=== PATIENT | female | born 1990 | race Caucasian/White ===

== ENCOUNTER 2018-04-11 06:53 | Emergency (ER) | payer MEDICAID, SELFPAY ==
[2018-04-11 06:55] VITALS: BP 128/73; PULSE 107; RESP 19; TEMP 36.4; O2SAT 99; BMI 27.4
--- NOTE | 2018-04-11 07:17 | ED.VISSUMM ---
- ER Visit Summary Date of Service: 04/11/18 Chief Complaint: Bites History of Present Illness: The patient is a 28 F who is 14 weeks . Yesterday, she noted insect bites to her arms and legs. They are itchy, red, swollen, and painful. No fever or systemic symptoms. She tried topical hydrocortisone and Benadryl with minimal relief. She was worried that she might need to try something else for this, and so she came to the ER. Physical Examination: Afebrile. Heart rate 107. Otherwise vitals unremarkable. Patient is alert and oriented. Sitting comfortably. No acute distress. Appears well. HEENT exam including eyes or mucous membranes are unremarkable. Neck normal. Heart regular. Breathing comfortably. Skin shows multiple erythematous patches with a central bite and mild edema. No unusual morphologies, target signs, or other concerning lesions. Nothing to suggest cellulitis or overlying infection. Test Results: None indicated Emergency Department Course and Treatment: Patient has multiple bites over her extremities. Nothing to suggest cellulitis or bacterial infection. No fever or systemic symptoms. At this point, I am recommending symptomatic treatment with Benadryl. We can also add Pepcid for histamine blockage. I will not recommend steroids at this time as she is . These will resolve over time. If they worsen or she has new or concerning symptoms, she should return. Treatment Plan: As above Disposition: Discharged Impression: 1. Insect bites to bilateral arms and bilateral legs This note was generated with [employer] dictation software. It may contain incorrect words, spelling, and punctuation that were not noted in review of the chart prior to signing ED Disposition - Plan for ED Patient: Chief Complaint: Bite Referrals: Care Physician,No Primary [Primary Care Provider] -
--- NOTE | 2018-04-11 07:22 | ED.DEP ---
ED Disposition - Plan for ED Patient: Chief Complaint: Bite Instructions: ED Bite Sting Insect Gen Allergic React Prescriptions: DiphenhydrAMINE [Benadryl] 25 mg PO TID PRN PRN 5 Days #15 cap PRN Reason: Itching Famotidine [Pepcid] 20 mg PO BID 5 Days #10 tab Additional Instructions: follow up with your doctor/ob
[2018-04-11 07:28] VITALS: RESP 14
== END 2018-04-11 07:50 | disposition home or self-care (01) ==
LOC: ED 07:28
PROVIDERS: Emergency Provider Emergency Medicine
DX: O26.892 Other specified pregnancy related conditions, second trimester (principal); S40.862A Insect bite (nonvenomous) of left upper arm, initial encounter; S40.861A Insect bite (nonvenomous) of right upper arm, initial encounter; S80.862A Insect bite (nonvenomous), left lower leg, initial encounter; S80.861A Insect bite (nonvenomous), right lower leg, initial encounter; W57.XXXA Bitten or stung by nonvenomous insect and other nonvenomous arthropods, initial encounter; Y93.9 Activity, unspecified; Y92.9 Unspecified place or not applicable; Y99.9 Unspecified external cause status; Z87.891 Personal history of nicotine dependence; Z3A.14 14 weeks gestation of pregnancy
CPT/HCPCS: 99282

== ENCOUNTER 2018-09-24 09:10 | Inpatient (IN) | payer MEDICAID, SELFPAY ==
[2018-09-24] VITALS (16 sets, daily range): BP systolic 101–146; BP diastolic 53–95; PULSE 67–104; RESP 16; TEMP 36.1–36.7; O2SAT 98–100; BMI 25.7
[2018-09-24] MEDS: 0.9% Saline Lock 10 ML Syringe IV (08:13)
[2018-09-24 08:35] LABS: Hematocrit 33.6 % (37-47); Mean Corp Hgb Conc 32.7 g/gl (32-36); Mean Corpuscular Hgb 26.6 pg (27.0-32.0); Mean Corpuscular Volume 81.2 fL (81-99); Mean Platelet Vol. 9.1 fl (6.2-12.0); Platelet Count 293 K/mm3 (150-450); RBC Distribution Width CV 13.9 % (11.6-14.6); RBC Distribution Width SD 41.4 fl (35.1-43.9); Red Blood Count 4.14 M/mm3 (4.2-5.4); White Blood Count 12.8 K/mm3 (4.4-11.0)
[2018-09-24 08:37] LABS: Scan Indicated on CBC? Y/N NO
[2018-09-24 08:44] LABS: International Normalized Ratio 0.9; Prothrombin Time (Protime)PT. 12.3 SECONDS (11.7-14.9)
[2018-09-24 08:45] LABS: Partial Thromboplast Time 23.8 Seconds (24.1-36.2)
[2018-09-24 08:46] LABS: AST(SGOT) 22 U/L (15-37); Alanine Aminotransfer ALT/SGPT 23 U/L (13-56); Creatinine, Serum 0.57 mg/dL (0.55-1.02); EST Glomerular Filtration Rate 133 mL/min (>60); Est Glom Filt Rate - Afr Amer 161 mL/min (>60); Uric Acid 5.5 mg/dL (2.6-6.0)
[2018-09-24 08:59] LABS: Protein, Urine (Random) 431.1 mg/dL (<11.9); Protein:Creat Ratio 1551 mg/g CRE (0-200)
[2018-09-24] MEDS: Lactated Ringers 1,000 ML 999 ML IV ×2 (09:10→11:23)
--- NOTE | 2018-09-24 09:57 | PCM.HP.OB ---
History Date of Admission: 09/24/18 Final KVNG: 10/06/18 Final KVNG Source: US <20 weeks Gestational age: 38 Weeks and 2 Days History of this : This is a 28 year-old, G 3P2 @ 38.3 wks presents to L&D with headache- Pt was found to have elevated BP and proteinuria. pt was scheduled for repeat c/s and BTO at 39 wks. Pt denies visual changes. pt reports does have head cold- no fever. +vomiting. Medical History: Medical History (Last Updated 09/24/18 @ 10:00 by Padmini Lynch MD) Depression F32.9 Preeclampsia O14.90 Allergies No Known Allergies Allergy (Verified 09/22/18 10:56) Home Medications: Home Medications Sertraline HCl [Zoloft] 50 mg PO DAILY 03/21/17 Pnv95/Ferrous Fumarate/FA [ Formula] 1 each PO DAILY 04/11/18 Smoking Status: Current every day smoker Alcohol: None Substance Use Type: Marijuana Number of Fetus(es): 1 Heart Tracin mod edilson, +accels, no decels TOCO Analysis: irregular History Past Pregnancies: Past Pregnancies Delivery Date Name GA/Weeks Outcome Route Weight Infant Gender Labor Length Anesthesia Delivery Location Provider FOB Labs: AB+, GBS neg, RUB imm, HEP NEg, HIV NR, syphilis neg Review of Systems Eyes: Denies: Blurred vision HEENT: Reports: Head Aches Cardiovascular: Denies: Chest Pain Gastrointestinal: Reports: Vomiting Physical Exam General: Alert, Oriented x3 Abdomen: Soft, Gravid Neurological: Cranial nerves II-XII grossly intact Assessment/Plan This is a 28 year-old, G 3P2 @ 38.3 wks, PREECLAMPSIA - elective repeat c/s 1) labs reviewed- Proteinuria, will give tylenol for DARNELL- if resolved would not recommend Magnesium therapy as DARNELL likely from current Congestion and URI 2) C/S planned with BTO 3) Pt was counseled on risks of surgery and consent was obtained 4) Montior VS
[2018-09-24] MEDS: Ondansetron 4 MG/2 ML Vial IV ×2 (10:03→14:06)
[2018-09-24] MEDS: Acetaminophen 500 MG Tablet 1000 MG PO (10:04)
[2018-09-24] MEDS: Sodium Citrate/Citric Acid 30 ML UDC PO (13:35)
[2018-09-24] MEDS: Cefazolin 2 GM in 0.9% Normal Saline 100 ML IV (14:06)
[2018-09-24] MEDS: Ondansetron ODT 4 MG Tablet PO (14:06)
--- NOTE | 2018-09-24 14:43 | FALS_PTH ---
PATIENT: JONATHAN LIVE LOC: [facility] U#:[id number] AGE/SX: 28/F ROOM: WP012 RE09/24/[address]: Dr. Miguel Amador MD : 1990 BED: 1 DIS: 09/27/2018 SPEC #: [id number] RECD: 09/25/18 00:08 STATUS: ARASH BRITTA #: [id number] SREEDHAR: 09/24/18 14:[address]: Miguel Amador DEPT: SURGICAL PATHOLOGY RECD BY: Deondre Ruiz ENTERED: 09/25/18 07:59 SP TYPE: FALL TUBES OTHR DR: No Primary Care Phys Tissues: Fallopian tube Procedures: Surgery Specimen Level II HEADER OPERATION: Tubal ligation PRE-OP DIAGNOSIS: Requests sterilization TISSUE SUBMITTED: Left and right fallopian tubes MICROSCOPIC DIAGNOSIS Left and right fallopian tubes, tubal ligation: Completely transected segments of bilateral fallopian tubes, no pathologic diagnosis. SJ:jesica 09/28/18 MICROSCOPIC DESCRIPTION Slides are reviewed. GROSS DESCRIPTION Received is one container labeled with the patient's name and designated bilateral fallopian tubes, suture in right. The specimen consists of two tubular pieces of vigil soft tissue with the right identified by a suture and measures 1 cm in length and 0.7 cm in diameter. The left fallopian tube measures 1.5 cm in length and 0.7 cm in diameter. The right tube is inked black. The entire specimen is submitted in one cassette. Both pieces will be sectioned at the time of embedding. / DARIEN:jesica 09/25/18 TC:4 CPT: 02156 x2
[2018-09-24] MEDS: Oxytocin 30 units/NS 500 ml 30 UNITS/500 ML IV.SOLN 167 UNITS IV ×2 (14:45→17:08)
[2018-09-24] MEDS: Lactated Ringers 1,000 ML 100 ML IV ×2 (15:00→18:48)
--- NOTE | 2018-09-24 15:35 | OP.PCM_ITS ---
Delivery Classification: NATALIA Final KVNG: 10/06/18 Gestational age: 38 Weeks and 2 Days Indications: Patient presented to L&D and was diagnosed with preeclampsia. Indications for : Repeat Elective , Desires elective sterilization Description of Procedure: Patient taken to OR where she was prepped and draped in normal sterile fashion in a dorsal lithotomy position with a leftward tilt. After ensuring adequacy of anesthesia the Pfannensteil skin incision was made & old scar tissue excised. The incision was carried through to the underlying fascia w/ a bovie. The fascia was incised in the midline and carried laterally with the Shearer scissors. The rectus muscles were scarred together other than a small opening. Bovie cautery was used to further separate the muscles. The peritoneum was entered bluntly & carefully. The bladder flap was adhered to the MAC and it was dissected down with the Metzenbaum scissors and careful blunt dissection. The uterine incision was made with the scalpel and extended laterally w/ gentle traction. The fetus was vertex and the head was brought to the incision in the flexed position. With good fundal pressure the head delivered easily. The shoulders & body delivered easily with additional fundal pressure. The cord was clamped and cut after 1 minute delay and the infant handed off to waiting RN. The placenta was delivered w/ gentle traction and fundal massage and the uterus was exteriorized and cleared of all clots and debris. The uterine incision was closed with 1 vicryl suture in a running locked fashion. A second layer monocryl was used to imbricate the first layer and obtain hemostasis. The left fallopian tube was grasped & doubly suture ligated. Tube segment excised & hemostasis confirmed at tubal site. Process repeated on the right side & again hemostasis confirmed. The uterus was returned to the peritoneal cavity which was cleared of all clots and debris. Tubal sutures were confirmed intact & tubal sites hemostatic. Pelvis was irrigated. A figure of 8 suture was needed on the left side of the incision to obtain hemostasis. The uterine incision was reexamined and found to be hemostatic. Some amauri was placed over the uterine incision & bladder flap due to the denuded areas. The fascia was closed with looped PDS suture in a running standard fashion. The subcutaneous tissue was examined, any bleeding bovie cauterized. The subcutaneous tissue was reapproximated with 3-0 vicryl suture. The skin was closed in a subcuticular fashion by the ESCALATOR SERVICE MECHANIC with me present in the labor and delivery suite. I performed the remainder of the procedure with assistance.
[2018-09-24] MEDS: Methylergonovine 0.2 MG/ML Ampul IM (16:55)
[2018-09-24] MEDS: miSOPROStol 200 MCG Tablet 1000 MCG RECTAL (17:08)
--- NOTE | 2018-09-24 18:07 | PCM.PN.OB ---
Subjective: Patient reports some mild pain. Called by RN for some increased VB. - Physical Exam General: Alert, Oriented x3 Abdomen: Soft, Non Tender, Non-Distended Extremities: No Calf Tenderness Vital Signs Temp Pulse Resp BP Pulse Ox 97.8 F 82 16 120/53 L 100 09/24/18 18:00 09/24/18 18:00 09/24/18 18:00 09/24/18 18:00 09/24/18 18:00 Oxygen Delivery Method Room Air Weight: 149 lb 11.102 oz Body Mass Index (BMI) 25.7 Intake and Output for Last 24 Hours 09/22/18 09/23/18 09/24/18 23:59 23:59 23:59 Intake Total 3533 / 3533 Balance 3533 / 3533 Laboratory Tests Past 24 Hrs 09/24/18 09/24/18 09/24/18 08:13 08:13 08:13 WBC 12.8 H RBC 4.14 L Hgb 11.0 L Hct 33.6 L MCV 81.2 MCH 26.6 L MCHC 32.7 RDW 13.9 RDW Differential 41.4 Plt Count 293 MPV 9.1 PT 12.3 INR 0.9 APTT 23.8 L Creatinine Est GFR (MDRD) Af Amer Est GFR (MDRD) Non-Af Uric Acid AST ALT U Random Total Protein 431.1 H Urine Creatinine 278.00 Protein/Creatinin Ratio 1551 H Blood Type Antibody Screen 09/24/18 09/24/18 08:13 08:13 WBC RBC Hgb Hct MCV MCH MCHC RDW RDW Differential Plt Count MPV PT INR APTT Creatinine 0.57 Est GFR (MDRD) Af Amer 161 Est GFR (MDRD) Non-Af 133 Uric Acid 5.5 AST 22 ALT 23 U Random Total Protein Urine Creatinine Protein/Creatinin Ratio Blood Type AB POSITIVE Antibody Screen NEGATIVE Medical Necessity - Tobacco Use Smoking Status: Current every day smoker Assessment/Plan 28yo female POD#0 s/p Heme - HDS. Clots removed manually from MAC. After that ff mid & below umbilicus. Hemabate given. VB minimal. Plan for continued observation.
[2018-09-24] MEDS: Carboprost Tromethamine 250 MCG/ML Ampul IM (18:27)
[2018-09-24] MEDS: Ketorolac 30 MG/ML Syringe IV (21:39)
[2018-09-25] VITALS (20 sets, daily range): BP systolic 110–134; BP diastolic 39–87; PULSE 78–104; RESP 16–17; TEMP 36.1–36.4; O2SAT 98–100
[2018-09-25 00:39] LABS: Pathology Specimen OB SEE PATHOLOGY REPORT
[2018-09-25] MEDS: Lactated Ringers 1,000 ML 100 ML IV (04:40)
[2018-09-25 07:12] LABS: Hematocrit 19.8 % (37-47); Hemoglobin 6.5 g/dl (12.0-15.0); Mean Corp Hgb Conc 32.8 g/gl (32-36); Mean Corpuscular Hgb 27.2 pg (27.0-32.0); Mean Corpuscular Volume 82.8 fL (81-99); Mean Platelet Vol. 9.3 fl (6.2-12.0); Platelet Count 264 K/mm3 (150-450); RBC Distribution Width CV 13.8 % (11.6-14.6); RBC Distribution Width SD 39.6 fl (35.1-43.9); Red Blood Count 2.39 M/mm3 (4.2-5.4); White Blood Count 16.1 K/mm3 (4.4-11.0)
[2018-09-25 07:16] LABS: Scan Indicated on CBC? Y/N NO
[2018-09-25] MEDS: Ketorolac 30 MG/ML Syringe IV ×3 (07:54→21:29)
--- NOTE | 2018-09-25 07:58 | PCM.PN.OB ---
Subjective: Patient reports some mild abdominal pain. Otherwise she feels well. - Physical Exam General: Alert, Oriented x3 Abdomen: Soft, Non Tender, Non-Distended - ff mid & below umb; inc - bandage c/d/i Vital Signs Temp Pulse Resp BP Pulse Ox 97.1 F L 86 16 117/66 99 09/25/18 04:35 09/25/18 06:50 09/25/18 06:50 09/25/18 04:35 09/25/18 06:50 Oxygen Delivery Method Room Air Weight: 149 lb 11.102 oz Body Mass Index (BMI) 25.7 Intake and Output for Last 24 Hours 09/23/18 09/24/18 09/25/18 23:59 23:59 23:59 Intake Total 6533 / 6533 1867 / 1867 Output Total 125 / 125 520 / 520 Balance 6408 / 6408 1347 / 1347 Laboratory Tests Past 24 Hrs 09/24/18 09/24/18 09/24/18 08:13 08:13 08:13 WBC 12.8 H RBC 4.14 L Hgb 11.0 L Hct 33.6 L MCV 81.2 MCH 26.6 L MCHC 32.7 RDW 13.9 RDW Differential 41.4 Plt Count 293 MPV 9.1 PT 12.3 INR 0.9 APTT 23.8 L Creatinine Est GFR (MDRD) Af Amer Est GFR (MDRD) Non-Af Uric Acid AST ALT U Random Total Protein 431.1 H Urine Creatinine 278.00 Protein/Creatinin Ratio 1551 H Blood Type Antibody Screen 09/24/18 09/24/18 09/25/18 08:13 08:13 06:55 WBC 16.1 H RBC 2.39 L Hgb 6.5 L Hct 19.8 L MCV 82.8 MCH 27.2 MCHC 32.8 RDW 13.8 RDW Differential 39.6 Plt Count 264 MPV 9.3 PT INR APTT Creatinine 0.57 Est GFR (MDRD) Af Amer 161 Est GFR (MDRD) Non-Af 133 Uric Acid 5.5 AST 22 ALT 23 U Random Total Protein Urine Creatinine Protein/Creatinin Ratio Blood Type AB POSITIVE Antibody Screen NEGATIVE Medical Necessity - Tobacco Use Smoking Status: Current every day smoker Assessment/Plan POD#1 Heme - hb 6.5 & will repeat to ensure stable/accurate. Discussed R/B/A of possible blood transfusion with patient if hb remains at 6.5 or symptomatic. Patient agrees with plan. All questions answered GI - ADAT - some decreased UOP overnight but patient with diarrhea (s/p hemabate). Improved this am & will monitor.
[2018-09-25 10:13] LABS: Absolute Neutrophil Count 11.3 X10^3/uL (2.0-7.7); Basophil# 0.01 X10^3/uL; Basophil% 0.1 % (0-1); Eosinophil# 0.04 X10^3/uL; Eosinophils% 0.3 % (0-5); Hematocrit 18.4 % (37-47); Lymphocyte % 11.7 % (19-41); Mean Corp Hgb Conc 32.1 g/gl (32-36); Mean Corpuscular Volume 81.1 fL (81-99); Mean Platelet Vol. 8.7 fl (6.2-12.0); Monocyte# 0.73 X10^3/uL; Monocyte% 5.3 % (0-10); Neutrophil # 11.32 X10^3/uL (2.7-7.7); Neutrophil % 82.5 % (47-70); Platelet Count 232 K/mm3 (150-450); RBC Distribution Width CV 14.2 % (11.6-14.6); RBC Distribution Width SD 41.5 fl (35.1-43.9); Red Blood Count 2.27 M/mm3 (4.2-5.4); White Blood Count 13.7 K/mm3 (4.4-11.0)
[2018-09-25 10:17] LABS: Differential Indicated SCAN CRITERIA MET; Hemoglobin 5.9 g/dl (12.0-15.0); POSITIVE COUNT YES; POSITIVE DIFFERENTIAL NO; POSITIVE MORPHOLOGY NO
[2018-09-25] MEDS: Acetaminophen 500 MG Tablet 1000 MG PO (10:41)
[2018-09-25] MEDS: Ferrous Sulfate 325 MG Tablet PO (10:41)
--- NOTE | 2018-09-25 15:48 | NURSING ---
70gm clot, not followed by active bleeding, fundus firm
[2018-09-25 15:57] LABS: Pathologist Review Reviewed
--- NOTE | 2018-09-25 16:00 | CASEMGMT ---
Social Work Assessment Labor and Delivery Unit Date of Referral: 09-25-2018 Time of Referral: 0830 Referred By: Verbal notification by nursing Date of Intervention: 09-25-2018 Time of Intervention: 1600 Reason for Referral: maternal history of depression History obtained from: Medical record and mother of baby (MOB) Ghislaine Bates Household composition: MOB, reported father of baby (FOB) Jamison Ambrosio, and 2 older children. baby boy to return to this home as well. MOB denies any safety concerns in the home. Patient's parent/guardian status: MOB and FOB are both 28 together for 9 years. MOB and FOB now have 3 children together. Children include: [place] baby boy Kb Ambrosio (born 09[birth year]2018), Hay Ambrosio (born 01-02-11), and Nette Ambrosio (born 04-01-17). Medical History: MOB is G3, P2 to 3 after delivering baby Kb. MOB with care starting at 11 weeks and adequate thereafter. MOB with preeclampsia. Baby was born at repeat caesarian section at 38.3 weeks gestation. Baby weighed 6 pounds 14 ounces, 9 and 9. Educational Status: MOB graduated high school, reports to be able to read, write, and to understand what is read. 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 FOB works in [employer] from 3pm to 2am. Supplies: MBO reports to have all needed supplies for baby including a safe sleep space and car seat. Childcare/Caregiver(s): MOB and FOB are primary caregivers. Transportation: No reported issues. Programs/Agencies Involved: MOB has medical through [facility]. Reports to have WIC. Denies any other agency involvement, legal history, or history with children services. Behavioral Health Issues: Mental Health History: MBO with history of depression after first two children. MOB reports has been on Zoloft since Nette was born and remained on this throughout this . MOB states plan to remain on medication in this period as well. MOB denies any history of suicidal ideation, plan, intent or attempts. No history of thoughts of harm to others. Substance Use History: MOB reports to use alcohol socially, denies use in . MOB reports has used marijuana in the past, and initially indicates use prior to knowledge. MOB did have nausea at the beginning and then informed that used marijuana for nausea issues, to be able to eat, at the beginning of the . MOB denies continued use of this substance. MOB denies any history of other illicit drug use history. Drug Screens: Maternal drug screen positive for marijuana on 03-20-2018/ No other testing done or noted in the C record or at time of delivery. No testing on baby. Family/Social Stressors: maternal history of depression, closely spaced pregnancies between this child and last child in 2017. MOB with early use of marijuana but reports has stopped this and used this for nausea control and appetite stimulation. Support Systems: MOB reports FOB, both sets of parents, and MOB?s brother are supportive. MOB reports to feel to have adequate support. ASSESSMENT: MOB pleasant and cooperative, affect constricted but smiled at appropriate times. MOB reports to feel a connection to baby, reports to understand need for self-care related to depression. Educated to depression, risk factors, and importance of self-care. MOB reports plan to stay on antidepressant in the period. MOB is aware of safe sleeping and shaken baby prevention. MOB reports to have needed supplies for children. MOB reports FOB does help with kids when at home and not working. MOB reports can call MOB?s parents to help if needs a break or help with the kids. Safe Plan of Care for infant related to substance use: Addressed substance use with MOB. No intent identified by MOB to supply chain tech use of marijuana again. MOB reports last use was in the first trimester, early on. Addressed safe plan of care for children, should for some reason MOB?s intent change regarding marijuana use. MOB reports would assure that kids are care by another adult, would not use around the kids, nor care for kids after using. MOB aware of recommendation not to breast feed if using marijuana, but again no intent reported by MOB about using in the future. MOB with one first trimester drug screen, no subsequent testing on MOB and no testing on baby. No reported concerns bout mother/child bonding. PLAN: MOB and baby to home at time of discharge. Provided MOB with depression packet and educated to online support group should MOB wants some extra support. Provided [facility] resource packet, including some counseling options should MOB want to seek some additional support for depression. No other services requested or indicated. -ROLAND Worrell, [employer]
[2018-09-25] MEDS: Sertraline 50 MG Tablet PO (16:09)
[2018-09-25] MEDS: 0.9% Saline Lock 10 ML Syringe IV (21:30)
[2018-09-25 23:28] LABS: Hematocrit 25.2 % (37-47); Hemoglobin 8.1 g/dl (12.0-15.0); Mean Corp Hgb Conc 32.1 g/gl (32-36); Mean Corpuscular Hgb 27.5 pg (27.0-32.0); Mean Corpuscular Volume 85.4 fL (81-99); Mean Platelet Vol. 9.6 fl (6.2-12.0); Platelet Count 219 K/mm3 (150-450); RBC Distribution Width CV 14.3 % (11.6-14.6); Red Blood Count 2.95 M/mm3 (4.2-5.4); White Blood Count 12.6 K/mm3 (4.4-11.0)
[2018-09-25 23:29] LABS: Scan Indicated on CBC? Y/N NO
[2018-09-26 02:00] VITALS: BP 127/72; PULSE 74; RESP 16; TEMP 36.1; O2SAT 97
[2018-09-26] MEDS: Ketorolac 30 MG/ML Syringe IV ×3 (03:36→16:16)
[2018-09-26] MEDS: 0.9% Saline Lock 10 ML Syringe IV ×3 (03:36→16:16)
[2018-09-26] MEDS: Senna/Docusate Sodium 1 Tablet PO ×2 (08:07→08:43)
[2018-09-26] MEDS: Ferrous Sulfate 325 MG Tablet PO (08:08)
[2018-09-26 08:17] VITALS: BP 129/80; PULSE 65; RESP 16; TEMP 35.9; O2SAT 97
[2018-09-26] MEDS: Sertraline 50 MG Tablet PO (09:52)
--- NOTE | 2018-09-26 11:48 | PCM.PN.OB ---
Subjective: Doing well per patient and nursing staff. Ambulating and taking PO without difficulty. Pain controlled. Voiding and passing flatus. Feeling better after blood transfusion. Denies headache, visual changes, chest pain, SOB, increased vaginal bleeding or clots, no leg pain. . Planning D/C home tomorrow. - Physical Exam General: Alert, Oriented x3, Cooperative HEENT: Atraumatic, Normocephalic Lungs: Clear to auscultation, Normal air movement, No rhonchi, No wheeze Cardiovascular: Regular rate, Regular Rhythm, No murmurs Abdomen: Bowel Sounds Present, - - Fundus firm 2 below U. Dressing dry and intact, no drainage. Extremities: No edema, - - Carlos's negative Psych/Mental Status: Normal Affect, Appropriate Vital Signs Temp Pulse Resp BP Pulse Ox 96.7 F L 65 16 129/80 H 97 09/26/18 08:17 09/26/18 08:17 09/26/18 08:17 09/26/18 08:17 09/26/18 08:17 Oxygen Flow Rate (L/min) 2 Oxygen Delivery Method Room Air Weight: 149 lb 11.102 oz Body Mass Index (BMI) 25.7 Intake and Output for Last 24 Hours 09/24/18 09/25/18 09/26/18 23:59 23:59 23:59 Intake Total 6533 / 6533 2867 / 2867 Output Total 125 / 125 1845 / 1845 600 / 600 Balance 6408 / 6408 1022 / 1022 -600 / -600 Laboratory Tests Past 24 Hrs 09/24/18 09/25/18 09/25/18 08:31 09:57 23:10 WBC 12.6 H RBC 2.95 L Hgb 8.1 L Hct 25.2 L MCV 85.4 MCH 27.5 MCHC 32.1 RDW 14.3 RDW Differential 43.0 Plt Count 219 MPV 9.6 [address] Review Reviewed Crossmatch See Detail Medical Necessity - Tobacco Use Smoking Status: Current every day smoker Assessment/Plan A:POD #2 Repeat Section Blood loss anemia P: 1) Routine post op and instructions given. Planning D/C home tomorrow. 2) Hgb stable and asymptomatic 3) Pain management
[2018-09-26 14:00] VITALS: BP 139/89; PULSE 80; RESP 20; TEMP 36.4; O2SAT 99
[2018-09-26 20:15] VITALS: BP 134/82; PULSE 73; RESP 16; TEMP 36.8; O2SAT 97
[2018-09-26] MEDS: Ibuprofen 600 MG Tablet PO (23:43)
[2018-09-27 02:00] VITALS: BP 139/78; PULSE 61; RESP 16; TEMP 36.4; O2SAT 95
[2018-09-27 08:35] VITALS: BP 153/97; PULSE 61; RESP 18; TEMP 36.4; O2SAT 97
[2018-09-27 08:40] VITALS: BP 147/92
[2018-09-27] MEDS: Sertraline 50 MG Tablet PO (08:42)
[2018-09-27] MEDS: Ferrous Sulfate 325 MG Tablet PO (08:42)
[2018-09-27] MEDS: Ibuprofen 600 MG Tablet PO (08:44)
--- NOTE | 2018-09-27 10:01 | PCM.PN.OB ---
Patient Problems: Active and Suspected Problems (Last Updated 09/24/18 @ 10:00 by Padmini Lynch MD) Delivery by section of full-term infant (Acute) Subjective: Doing well per patient and nursing staff. Ambulating and taking PO without difficulty. Pain controlled. Voiding and passing flatus. Denies headache, visual changes, chest pain, SOB, increased vaginal bleeding or clots, no leg pain. . Planning D/C home today. - Physical Exam General: Alert, Oriented x3, Cooperative HEENT: Atraumatic, Normocephalic Lungs: Clear to auscultation, Normal air movement, No rhonchi, No wheeze Cardiovascular: Regular rate, Regular Rhythm, No murmurs Abdomen: Bowel Sounds Present, - - Fundus firm 3 below U Extremities: No edema, - - Carlos's negative Neurological: Deep Tendon Reflexes 2+/4 and Symmetrical - no clonus Psych/Mental Status: Normal Affect, Appropriate Vital Signs Temp Pulse Resp BP Pulse Ox 97.6 F L 61 18 147/92 H 97 09/27/18 08:35 09/27/18 08:35 09/27/18 08:35 09/27/18 08:40 09/27/18 08:35 Oxygen Flow Rate (L/min) 2 Oxygen Delivery Method Room Air Weight: 149 lb 11.102 oz Body Mass Index (BMI) 25.7 Intake and Output for Last 24 Hours 09/25/18 09/26/18 09/27/18 23:59 23:59 23:59 Intake Total 2867 / 2867 Output Total 1845 / 1845 600 / 600 Balance 1022 / 1022 -600 / -600 Medical Necessity - Tobacco Use Smoking Status: Current every day smoker Assessment/Plan All Active Problems (Last Updated 09/24/18 @ 10:00 by Padmini Lynch MD) Delivery by section of full-term infant (Acute) A:POD #3 section P: 1) Discharge home today. 2) Follow up in 2 weeks for incision check, 6 weeks for visit. 3) Ferrous Sulfate 325mg PO BID 4) Percocet for pain. 5) BP elevated, will start Labetalol 100mg PO TID. Consulted and agrees with plan. Follow up in 3 days for blood pressure check.
--- NOTE | 2018-09-27 10:45 | PCM.DCVAG ---
Discharge Diet: No Restrictions Discharge Activity: Return to Normal Activity, May not drive while taking narcotic pain medications., May Shower May resume sexual activity in: 4-6 weeks Weight Bearing Status: Full weight bearing Lifting Restrictions: Less than 20 lbs Call your doctor if your incision/area has: Continuous Slow Oozing, Sudden Increased Bleeding, Increased Pain/ Swelling, Increased Redness, Foul Smelling Discharge Call your doctor if you observe: Fever of 101 or Higher, Numbness or Tingling, Inability to urinate, Inability to have a bowel movement, Using more than one pad per hour, Shortness of breath, Chest pain, Increased palpitations (irregular heartbeat), Calf discomfort, Uncontrolled pain Remove Dressing in (days):: 4 Additional Instructions: If you experience any of the following, contact your healthcare provider. Bleeding that soaks a pad every hour for 2 hours Fever 100.4 or higher Unrelieved incision or abdominal pain Swelling, redness, discharge or bleeding from your incision or episiotomy site Your incision begins to separate Problems urinating (including inability to urinate or burning while urinating). Visual changes Severe headache Flu-like symptoms Pain or redness in one of both of your breasts Pain, warmth, tenderness or swelling in your legs, especially the calf area Frequent nausea and vomiting Symptoms of depression or anxiety If you experience any of the following, call 911 or go to the nearest Emergency Room. Chest pain Problems breathing Seizure activity Partial or complete paralysis of a body part, slurred speech, weakness or drooping of the face, or a sudden inability to walk or hold your balance Allergies/Adverse Reactions: Allergies No Known Allergies Allergy (Verified 09/22/18 10:56) Medications to take at Discharge Sertraline HCl [Zoloft] 50 mg PO DAILY 03/21/17 Pnv95/Ferrous Fumarate/FA [ Formula Tablet] 1 each PO DAILY 04/11/18 Ferrous Sulfate 325 mg PO DAILY@1200 tablet 09/27/18 Labetalol [Trandate (Beta Hui)] 100 mg PO BID 30 Days #60 tablet 09/27/18 Oxycodone HCl/Acetaminophen [Percocet 5/325] 1 - 2 tab PO Q4H PRN PRN 7 Days #20 tab 09/27/18 Senna/Docusate Sodium [Senokot-S] 1 - 2 tablet PO DAILY PRN tablet 09/27/18 The following prescriptions were given: Oxycodone HCl/Acetaminophen [Percocet 5/325] 1 - 2 tab PO Q4H PRN PRN 7 Days #20 tab PRN Reason: Pain Labetalol [Trandate (Beta Hui)] 100 mg PO BID 30 Days #60 tablet Please Follow Up With: Miguel Amador When: Call to make an appointment with your doctor in 3 days for a blood pressure check, 2 weeks for an incision check and 6 weeks for visit. If you had elevated Blood Pressure or 4th degree laceration you will need to be seen in 2 weeks. Primary Care Physician: Care Physician,No Primary [Primary Care Provider] - Test Results: Test results from this visit will be discussed in further detail at your follow-up appointment, if applicable. Proposed Discharge Date: 09/27/18
--- NOTE | 2018-09-27 10:48 | DCINST_ITS ---
Discharge Diet: No Restrictions Discharge Activity: Return to Normal Activity, May not drive while taking narcotic pain medications., May Shower May resume sexual activity in: 4-6 weeks Weight Bearing Status: Full weight bearing Lifting Restrictions: Less than 20 lbs Call your doctor if your incision/area has: Continuous Slow Oozing, Sudden Increased Bleeding, Increased Pain/ Swelling, Increased Redness, Foul Smelling Discharge Call your doctor if you observe: Fever of 101 or Higher, Numbness or Tingling, Inability to urinate, Inability to have a bowel movement, Using more than one pad per hour, Shortness of breath, Chest pain, Increased palpitations (irregular heartbeat), Calf discomfort, Uncontrolled pain Remove Dressing in (days):: 4 Additional Instructions: If you experience any of the following, contact your healthcare provider. * Bleeding that soaks a pad every hour for 2 hours * Fever 100.4 or higher * Unrelieved incision or abdominal pain * Swelling, redness, discharge or bleeding from your incision or episiotomy site * Your incision begins to separate * Problems urinating (including inability to urinate or burning while urinating). * Visual changes * Severe headache * Flu-like symptoms * Pain or redness in one of both of your breasts * Pain, warmth, tenderness or swelling in your legs, especially the calf area * Frequent nausea and vomiting * Symptoms of depression or anxiety If you experience any of the following, call 911 or go to the nearest Emergency Room. * Chest pain * Problems breathing * Seizure activity * Partial or complete paralysis of a body part, slurred speech, weakness or drooping of the face, or a sudden inability to walk or hold your balance Allergies/Adverse Reactions: Allergies No Known Allergies Allergy (Verified 09/22/18 10:56) Medications to take at Discharge Sertraline HCl [Zoloft] 50 mg PO DAILY 03/21/17 Pnv95/Ferrous Fumarate/FA [ Formula Tablet] 1 each PO DAILY 04/11/18 Ferrous Sulfate 325 mg PO DAILY@1200 tablet 09/27/18 Labetalol [Trandate (Beta Hui)] 100 mg PO BID 30 Days #60 tablet 09/27/18 Oxycodone HCl/Acetaminophen [Percocet 5/325] 1 - 2 tab PO Q4H PRN PRN 7 Days #20 tab 09/27/18 Senna/Docusate Sodium [Senokot-S] 1 - 2 tablet PO DAILY PRN tablet 09/27/18 The following prescriptions were given: Oxycodone HCl/Acetaminophen [Percocet 5/325] 1 - 2 tab PO Q4H PRN PRN 7 Days #20 tab PRN Reason: Pain Labetalol [Trandate (Beta Hui)] 100 mg PO BID 30 Days #60 tablet Please Follow Up With: Miguel Amador When: Call to make an appointment with your doctor in 3 days for a blood pressure check, 2 weeks for an incision check and 6 weeks for visit. If you had elevated Blood Pressure or 4th degree laceration you will need to be seen in 2 weeks. Primary Care Physician: Care Physician,No Primary [Primary Care Provider] - Test Results: Test results from this visit will be discussed in further detail at your follow- up appointment, if applicable. Proposed Discharge Date: 09/27/18
--- NOTE | 2018-09-27 10:49 | DS.PCM_ITS ---
Discharge Date and Diagnosis - Problem List Patient Problems: Active and Suspected Problems (Last Updated 09/24/18 @ 10:00 by Padmini Jones MD) Delivery by section of full-term infant (Acute) Date of Admission: 09/24/18 Date of Discharge: 09/27/18 - Primary Discharge Diagnosis Active and Suspected Problems (Last Updated 09/24/18 @ 10:00 by Padmini Jones MD) Delivery by section of full-term (Acute) Hospital Course and Treatment Summary of Care Provided: The patient is a 28 year old F [] Patient Problems: Active and Suspected Problems (Last Updated 09/24/18 @ 10:00 by Padmini Jones MD) Delivery by section of full-term infant (Acute) - Physical Exam Vital Signs Temp Pulse Resp BP Pulse Ox 97.6 F L 61 18 147/92 H 97 09/27/18 08:35 09/27/18 08:35 09/27/18 08:35 09/27/18 08:40 09/27/18 08:35 Oxygen Flow Rate (L/min) 2 Oxygen Delivery Method Room Air Weight: 149 lb 11.102 oz Body Mass Index (BMI) 25.7 Intake and Output for Last 24 Hours 09/25/18 09/26/18 09/27/18 23:59 23:59 23:59 Intake Total 2867 / 2867 Output Total 1845 / 1845 600 / 600 Balance 1022 / 1022 -600 / -600 Discharge Diet: No Restrictions Discharge Activity: Return to Normal Activity, May not drive while taking narcotic pain medications., May Shower May resume sexual activity in: 4-6 weeks Weight Bearing Status: Full weight bearing Call your doctor if your incision/area has: Continuous Slow Oozing, Sudden Increased Bleeding, Increased Pain/ Swelling, Increased Redness, Foul Smelling Discharge Call your doctor if you observe: Fever of 101 or Higher, Numbness or Tingling, Inability to urinate, Inability to have a bowel movement, Using more than one pad per hour, Shortness of breath, Chest pain, Increased palpitations (irregular heartbeat), Calf discomfort, Uncontrolled pain Remove Dressing in (days):: 4 Home Medications: Medications to take at Discharge Sertraline HCl [Zoloft] 50 mg PO DAILY 05/26/17 Pnv95/Ferrous Fumarate/FA [ Formula Tablet] 1 each PO DAILY 04/11/18 Ferrous Sulfate 325 mg PO DAILY@1200 tablet 09/27/18 Labetalol [Trandate (Beta Hui)] 100 mg PO BID 30 Days #60 tablet 09/27/18 Oxycodone HCl/Acetaminophen [Percocet 5/325] 1 - 2 tab PO Q4H PRN PRN 7 Days #20 tab 09/27/18 Senna/Docusate Sodium [Senokot-S] 1 - 2 tablet PO DAILY PRN tablet 09/27/18 Following Prescrptions Were Given to Patient: Oxycodone HCl/Acetaminophen [Percocet 5/325] 1 - 2 tab PO Q4H PRN PRN 7 Days #20 tab PRN Reason: Pain Labetalol [Trandate (Beta Hui)] 100 mg PO BID 30 Days #60 tablet Primary Care Physician: Care Physician,No Primary [Primary Care Provider] - Please Follow Up With: Miguel Amador When: 6 weeks Disposition: Home Patient Condition:: Good Medical Necessity - Tobacco Use Smoking Status: Current every day smoker Meaningful Use Info Meaningful Use Diagnoses (Choose all that apply): None applicable
[2018-09-27] MEDS: Labetalol 100 MG Tablet PO (11:16)
[2018-09-27 11:17] VITALS: BP 153/88
[2018-09-27 13:01] VITALS: BP 138/82; PULSE 67; RESP 18; TEMP 36.6; O2SAT 98
--- NOTE | 2018-10-14 11:21 | DS.PCM_ITS ---
Discharge Date and Diagnosis Date of Admission: 09/24/18 Hospital Course and Treatment Summary of Care Provided: The patient is a 28 year old F [] - Physical Exam Vital Signs Temp Pulse Resp BP Pulse Ox 97.9 F 67 18 138/82 H 98 09/27/18 13:01 09/27/18 13:01 09/27/18 13:01 09/27/18 13:01 09/27/18 13:01 Oxygen Flow Rate (L/min) 2 Oxygen Delivery Method Room Air Weight: 149 lb 11.102 oz Body Mass Index (BMI) 25.7 Discharge Diet: No Restrictions Discharge Activity: Return to Normal Activity, May not drive while taking narcotic pain medications., May Shower May resume sexual activity in: 4-6 weeks Weight Bearing Status: Full weight bearing Call your doctor if your incision/area has: Continuous Slow Oozing, Sudden Increased Bleeding, Increased Pain/ Swelling, Increased Redness, Foul Smelling Discharge Call your doctor if you observe: Fever of 101 or Higher, Numbness or Tingling, I nability to urinate, Inability to have a bowel movement, Using more than one pad per hour, Shortness of breath, Chest pain, Increased palpitations (irregular heartbeat), Calf discomfort, Uncontrolled pain Remove Dressing in (days):: 4 Home Medications: Medications to take at Discharge Sertraline HCl [Zoloft] 50 mg PO DAILY 03/21/17 Pnv No.95/Ferrous Fum/Folic AC [ Formula Tablet] 1 each PO DAILY 04/11/18 Senna/Docusate Sodium [Senokot-S] 1 - 2 tablet PO DAILY PRN tablet 09/27/18 Ferrous Sulfate 325 mg PO DAILY@0800 #60 tablet 10/02/18 Labetalol [Trandate (Beta Hui)] 200 mg PO TID #120 tablet 10/02/18 Primary Care Physician: Care Physician,No Primary [Primary Care Provider] - Please Follow Up With: Miguel Amador When: 6 weeks Disposition: Home Medical Necessity - Tobacco Use Smoking Status: Current every day smoker
--- OUTSIDE RECORDS SUMMARY | 2018-11-19 07:57 | XMS RPT_ITS ---
:1990 Author Organization OHIP Care Team Providers Name Role Phone PADMINI CORONADO Attending Unavailable PADMINI CORONADO Attending Unavailable PADMINI CORONADO Referring Unavailable NEYHART LOPES, PADMINI Referring Unavailable FERCHO ROSA Attending Unavailable NEYHART LOPES, PADMINI Referring Unavailable NEYHART LOPES, PADMINI Attending Unavailable NEYHART LOPES, PADMINI Attending Unavailable NEYHART LOPES, PADMINI Attending Unavailable NEYHART LOPES, PADMINI Referring Unavailable NEYHART LOPES, PADMINI Attending Unavailable NEYHART LOPES, PADMINI Attending Unavailable CHESTER HERRING Attending Unavailable NEYHART LOPES, PADMINI Referring Unavailable LUIS GRIMM (CNM) Attending Unavailable NEYHART LOPES, PADMINI Referring Unavailable BONIFACIO SHORT Referring Unavailable NEYHART LOPES, PADMINI Attending Unavailable NEYHART LOPES, PADMINI Referring Unavailable NEYHART LOPES, PADMINI Attending Unavailable NEYHART LOPES, PADMINI Referring Unavailable NEYHART LOPES, PADMINI Attending Unavailable NEYHART LOPES, PADMINI Attending Unavailable NEYHART LOPES, PADMINI Attending Unavailable NEYHART LOPES, PADMINI Attending Unavailable CHESTER HERRING Attending Unavailable NEYHART LOPES, PADMINI Referring Unavailable NEYHART LOPES, PADMINI Referring Unavailable Primay Care Physicia, No Primary Care Unavailable Xander Lloyd Attending Unavailable Neyhart-Lopes, Padmini Admitting Unavailable Neyhart-Lopes, Padmini Attending Unavailable Primay Care Physicia, No Primary Care Unavailable Primay Care Physicia, No Primary Care Unavailable Bonifacio Short Admitting Unavailable Bonifacio Short Attending Unavailable Bonifacio Short Referring Unavailable Primay Care Physicia, No Primary Care Unavailable Nette Mondragon Attending Unavailable Nette Mondragon Referring Unavailable PROBLEMS PROBLEMS DATE TYPE CONDITION / CODE ATTENDING STATUS SOURCE 09/27/2018 Unknown O82 - Encounter Bonifacio Short Active [facility] delivery without Hospital indication / Repository O82(ICD-10) 05/13/2018 Active Maternal care for NA Active [facility] unspecified type [place] scar from Repository previous delivery / O34.219(ICD-10) 07/29/2018 Active 30 weeks NA Active [facility] gestation of [place] / Repository Z3A.30(ICD-10) 07/17/2018 Active 28 weeks NA Active [facility] gestation of [facility] / Repository Z3A.28(ICD-10) 04/02/2018 Active Encounter for NA Active [facility] supervision of [facility] normal first Repository , first trimester / Z34.01(ICD-10) 04/02/2018 Active Encounter for NA Active [facility] screening, Repository unspecified / Z36.9(ICD-10) 03/19/2018 Active Unknown / NA Active [facility] UNK(Unknown) [facility] Repository PROCEDURES PROCEDURES No Procedure Records FoundRESULTS RESULTS PROGRESS Observed: 10/13/2018 Status: COMPLETED Source: [place] 11:40 AM [facility] REPOSITORY HNO ID: [id number] Author: Padmini Lopes Service: (none) Author Type: Physician Type: Progress Notes Filed: 10/13/2018 11:41 AM Note Text: SUBJECTIVE: 28 year old female presents for 2 week post-op exam. Doing well. Reports good pain control. Denies DARNELL, or Nausea . OBJECTIVE: Incision: Dry and intact, without redness Abdomen: Soft, Non-tender and No palpable masses PLAN: RTO for 6 week check Stop Labetalol at this time- /u Friday10/16/18 for BP check with nurse I have reviewed and updated past medical and surgical history, medications and allergies. Padmini Lynch MD PROGRESS Observed: 10/05/2018 Status: COMPLETED Source: [place] 9:10 AM [facility] REPOSITORY HNO ID: [id number] Author: Alba Nolan RN Service: (none) Author Type: (none) Type: Progress Notes Filed: 10/05/2018 9:12 AM Note Text: Patient here for blood pressure check. Currently on Labetolol [address] Lopes notified of patient's blood pressure and complaint of dull headache only when upright. Advised to keep patient on current dose and follow up 10/13/18 with her for 2 week appointment. Advised patient to call office with headache, vision changes, RUQ pain or dizziness, lethargy, shortness of breath. Patient agreed. Alba Nolan RN CNNURSE Observed: 10/05/2018 Status: COMPLETED Source: [place] 9:00 AM [facility] REPOSITORY Nurse Visit (WOOB) CALOSJONATHAN Myah ([id number]) 1990 F Date Time Provider Department 10/05/18 9:00 AM NURSE RAIL [facility] WOOB During your visit today, we recorded the following information about you: Blood pressure Weight 108/74 55.8 kg Alba Nolan RN 10/05/2018 9:12 AM Signed Patient here for blood pressure check. Currently on Labetolol [address] Lopes notified of patient's blood pressure and complaint of dull headache only when upright. Advised to keep patient on current dose and follow up 10/13/18 with her for 2 week appointment. Advised patient to call office with headache, vision changes, RUQ pain or dizziness, lethargy, shortness of breath. Patient agreed. Alba Nolan RN Referring Provider: PADMINI CORONADO [[id number]] Allergies As of Date: 10/05/2018 (No Known Allergies) Date Reviewed: 10/05/2018 Reviewed by: Alba Nolan RN - Fully Assessed Primary Visit Diagnosis:Blood pressure check [Z01.30] Prescriptions as of 10/05/2018 Sig: LABETALOL 200 MG TABLET Three times A DAY OXYCODONE-ACETAMINOPHEN 5 MG-* SERTRALINE 50 MG TABLET TAKE 1 TABLET BY MOUTH ONCE D* VITAMIN,CALCIUM,MINE* Take 1 tablet by mouth. LORATADINE 10 MG TABLET Take 1 tablet by mouth once d* FLUTICASONE 50 MCG/ACTUATION * Use 2 Sprays in each nostril * PROMETHAZINE 12.5 MG TABLET Take 1 tablet by mouth every * Medication notes this encounter FLUTICASONE 50 MCG/ACTUATION NASAL SPRAY,SUSPENSION >> Alba Nolan RN 10/05/2018 9:01 AM >> ALBA NOLAN RN FriOct 05, 2018 9:01 AM Not taking PROMETHAZINE 12.5 MG TABLET >> Alba Nolan RN 10/05/2018 9:02 AM >> ALBA NOLAN RN FriOct 05, 2018 9:02 AM Not taking Problem List As Of Date 10/05/2018 Noted Resolved Supervision of normal first [Z34.00] INVALID FOR*06/04/2011 Otitis media of left ear [H66.92] INVALID FOR*11/18/2014 Previous delivery affecting *INVALID FOR* More... History of depression [Z86.59] INVALID FOR* More... Patient requested diagnostic testing [Z01.89] INVALID FOR*06/02/2017 More... More... Short interval between pregnancies affecting pr*INVALID FOR* More... Tobacco use during , antepartum [O99.3*INVALID FOR* More... Encounter Status:Closed by ALBA NOLAN RN on 10/05/18 DISCHARGE INSTRUCTION Observed: 10/02/2018 Status: F Source: [place] 11:26 AM [facility] REPOSITORY [facility] Medical Records Department [address] [place] [address] Instructions for Home/Discharge Instructions 10/02/18 1123 MR#: [id number] Acct: [id number] Name: JONATHAN BATES Rep #: [id number] : 1990 28 From: Nette Mondragon DO PCP: Care Physician, No Primary Status: REG CLI - Discharge Diagnoses Current Active Problems: Current Active and Chronic Problems (Last Updated 09/24/18 @ 10:00 by Padmini Lynch MD) Pre-eclampsia, (Acute) You will use the following diet at home:: No restrictions, Regular Discharge Activity: May not drive while taking narcotic pain medications., May Shower May resume sexual activity in: 4-6 weeks Weight Bearing Status: Weight bearing as tolerated Call your doctor if your incision/area has: Sudden Increased Bleeding, Increased Pain/ Swelling, Increased Redness, Foul Smelling Discharge, Swelling at the incision site Call your doctor if you observe: Fever of 101 or Higher, Inability to urinate, Inability to have a bowel movement, Using more than one pad per hour, Shortness of breath, Dizziness, Chest pain, Calf discomfort, Uncontrolled pain, - - Call with persistent headache, vision changes, upper abdominal pain, nausea, vomiting Cleanse incision/area with: Soap AND Water Instructions: Understanding Preeclampsia Allergies/Adverse Reactions: Allergies No Known Allergies Allergy (Verified 09/22/18 10:56) Medications to take at Discharge Sertraline HCl [Zoloft] 50 mg PO DAILY 03/21/17 Pnv No.95/Ferrous Fum/Folic AC [ Formula Tablet] 1 each PO DAILY 04/11/18 Oxycodone HCl/Acetaminophen [Percocet 5/325] 1 - 2 tab PO Q4H PRN PRN 7 Days #20 tab 09/27/18 Senna/Docusate Sodium [Senokot-S] 1 - 2 tablet PO DAILY PRN tablet 09/27/18 Ferrous Sulfate 325 mg PO DAILY@0800 #60 tablet 10/02/18 Labetalol [Trandate (Beta Hui)] 200 mg PO TID #120 tablet 10/02/18 The following prescriptions were given: Ferrous Sulfate 325 mg PO DAILY@0800 #60 tablet Labetalol [Trandate (Beta Hui)] 200 mg PO TID #120 tablet Primary Care Physician: Care Physician,No Primary [Primary Care Provider] - Test Results: Test results from this visit will be discussed in further detail at your follow-up appointment, if applicable. When: In 1 week for blood pressure check in the office 10/02/18 1126 <Electronically signed by Nette Mondragon DO> Date Nette Mondragon DO CC: No Primary Care Physician HISTORY AND PHYSICAL Observed: 10/01/2018 Status: F Source: [place] EXAM 3:11 PM [facility] REPOSITORY [facility] Medical Records Department [address] [place] [address] History and Physical 10/01/18 1438 MR#: [id number] Acct: [id number] Name: JONATHAN BATES Rep #: [id number] : 1990 28 From: Nette Mondragon DO PCP: Care Physician, No Primary Status: REG CLI Y Location: BR910-1 - Problem List (1) Pre-eclampsia, Status: Acute History Date of Admission: 09/24/18 Final KVNG Source: US <20 weeks History of this : This is a 28 year-old who is 1 week from a [facility] with BPS at 38 weeks. She had pre-eclampsia diagnosed in the . She states she has had a DARNELL since the delivery that has been persistent. Unresolved with Percocet. DARNELL currently 03/05. No vision changes, RUQ pain, epigastric pain, nausea, vomiting. She otherwise feels well. She has been taking Labetalol 100mg BID that she was started on in the . She reports a hx of pre-e with her first . She denies hx of cHTN. Medical History: Medical History (Last Updated 09/24/18 @ 10:00 by Padmini Lopes MD) Depression F32.9 Preeclampsia O14.90 Surgical History: Surgical History (Last Updated 09/24/18 @ 10:00 by Padmini Lynch MD) Previous section Z98.891 Allergies No Known Allergies Allergy (Verified 09/22/18 10:56) Home Medications: Home Medications Sertraline HCl [Zoloft] 50 mg PO DAILY 03/21/17 Pnv No.95/Ferrous Fum/Folic AC [ Formula Tablet] 1 each PO DAILY 04/11/18 Labetalol [Trandate (Beta Hui)] 100 mg PO BID 30 Days #60 tablet 09/27/18 Oxycodone HCl/Acetaminophen [Percocet 5/325] 1 - 2 tab PO Q4H PRN PRN 7 Days #20 tab 09/27/18 Senna/Docusate Sodium [Senokot-S] 1 - 2 tablet PO DAILY PRN tablet 09/27/18 Smoking Status: Current every day smoker History Past Pregnancies: Past Pregnancies Delivery Name GA/Weeks Outcome Route WeiInfant GeLabor LenAnesthesiDelivery Provider FOB Date ght nder gth a Location Review of Systems Eyes: Denies: Blurred vision HEENT: Reports: Head Aches. Denies: Visual Changes Cardiovascular: Denies: Chest Pain Respiratory: Denies: Shortness of Breath Gastrointestinal: Denies: Abdominal Pain, Nausea, Vomiting Neurological: Denies: Seizures Physical Exam General: No apparent distress HEENT: Atraumatic Lungs: - - No increased resp effort Abdomen: Soft, Non Tender, Non-Distended Extremities:: No edema Neurological: Deep Tendon Reflexes 2+/4 and Symmetrical, Neuro grossly intact. Negative for: Clonus Assessment/Plan All Active Problems (Last Updated 09/24/18 @ 10:00 by Padmini Lynch MD) Pre-eclampsia, (Acute) Delivery by section of full-term infant (Acute) This is a 28 year-old, who is 1 week from a [facility] with BPS. - BP's severe on admission, now 150's/100. Will increase Labetalol to 200mg BID - With elevated BP's and persistent DARNELL since delivery, in the setting of known pre-eclampsia, will admit for pre-eclampsia - To start Mag 4g bolus followed by 2g/hr - Strict intake and output - Pre-e labs on admission - Ok for regular diet while on mag gtt - Will reassess tomorrow for likely discharge. Discussed after discharge will need to f/u for BP check 10/01/18 1511 <Electronically signed by Nette Mondragon DO> Date Nette Mondragon DO Cosigner Signature: Date (if applicable) CC: No Primary Care Physician; Nette Mondragon DO Signed PROTEIN+CREATININE Collected: Status: F Source: [place] RATIO,URINE 10/01/2018 3:10 PM [facility] REPOSITORY TYPE CODE TESTS RESULT OUT OF RANGE REFERENCE UNITS LAB L501.1200 NO RANGE EST. mg/dL Normal UR CREAT 40.40 LAB L501.1930 <11.9 mg/dL High 23.5 PROTEIN,UR.R AN. LAB L501.1940 0-200 mg/g CRE High PROT:CRE 582 RATIO Performed By: #### L501.0900 #### [facility] [address], [place], [id number] CBC-COMPLETE BLOOD CNT Collected: 10/01/2018 Status: F Source: [place] NO DIFF 2:20 PM [facility] REPOSITORY TYPE CODE TESTS RESULT OUT OF RANGE REFERENCE UNITS LAB L100.1000 4.4-11.0 K/mm3 Normal WBC 10.8 LAB L100.1200 4.2-5.4 M/mm3 Low RBC 3.43 LAB L100.1300 12.0-15.0 g/dl Low HGB 9.3 LAB L100.1400 37-47 % Low HCT 29.5 LAB L100.1500 81-99 fL Normal MCV 86.0 LAB L100.1600 27.0-32.0 pg Normal MCH 27.1 LAB L100.1700 32-36 g/gl Low MCHC 31.5 LAB L100.1810 11.6-14.6 % High RDW CV 14.8 LAB L100.1820 35.1-43.9 fl High RDW SD 44.9 LAB L100.1900 150-450 K/mm3 High PLT 463 LAB L100.2000 6.2-12.0 fl Normal MPV 8.8 Performed By: #### L100.0500 #### [facility] [address], [place], [id number] PROTHROMBIN TIME W/INR Collected: 10/01/2018 Status: F Source: [place] 2:20 PM [facility] REPOSITORY TYPE CODE TESTS RESULT OUT OF RANGE REFERENCE UNITS LAB L300.4150 11.7-14.9 SECONDS Normal PROTIME 13.0 LAB L300.4200 Normal INR 1.0 Performed By: #### L300.3900, L300.4310 #### [facility] [address], [place], [id number] PARTIAL THROMBOPLAST Collected: 10/01/2018 Status: F Source: [place] TIME 2:20 PM [facility] REPOSITORY TYPE CODE TESTS RESULT OUT OF RANGE REFERENCE UNITS LAB L300.4310 24.1-36.2 Seconds Normal PTT 29.0 Performed By: #### L300.3900, L300.4310 #### [facility] [address] [place], [address] SERUM CREATININE AND Collected: 10/01/2018 Status: F Source: [place] GFR 2:20 PM [facility] REPOSITORY TYPE CODE TESTS RESULT OUT OF RANGE REFERENCE UNITS LAB L501.1100 0.55-1.02 mg/dL Normal 0.74 CREAT,SERUM Result Comment: The validity of the calculated GFR AND GFRAA in patients over 70 years has not been determined. Clinical correlation is essential. LAB L501.1110 >60 mL/min Normal EST GFR 99 Result Comment: Non- GFR Calc LAB L501.1115 >60 mL/min Normal EST GFR - AA 119 Result Comment: GFR Calc LAB L501.1255 ml/min Normal Estimated CRCL 80.57 Performed By: #### L501.1105, L501.1400, L501.4100, L501.4405 #### [facility] [address] [place], [address] URIC ACID Collected: 10/01/2018 Status: F Source: [place] 2:20 PM [facility] REPOSITORY TYPE CODE TESTS RESULT OUT OF RANGE REFERENCE UNITS LAB L501.1400 2.6-6.0 mg/dL Normal URIC 5.8 Result Comment: The drugs N-Acetylcysteine and Metamizole may falsely depress this assay. Performed By: #### L501.1105, L501.1400, L501.4100, L501.4405 #### [facility] [address] [place], [address] AST(SGOT) Collected: 10/01/2018 Status: F Source: [place] 2:20 PM [facility] REPOSITORY TYPE CODE TESTS RESULT OUT OF RANGE REFERENCE UNITS LAB L501.4100 15-37 U/L Normal AST 15 Performed By: #### L501.1105, L501.1400, L501.4100, L501.4405 #### [facility] [address] [place], [address] ALANINE AMINOTRANSFERAS Collected: 10/01/2018 Status: F Source: [place] (SGPT) 2:20 PM [facility] REPOSITORY TYPE CODE TESTS RESULT OUT OF RANGE REFERENCE UNITS LAB L501.4405 13-56 U/L Normal ALT 29 Performed By: #### L501.1105, L501.1400, L501.4100, L501.4405 #### [facility] [address] [place], [address] PROGRESS Observed: 10/01/2018 Status: COMPLETED Source: [place] 1:22 PM [facility] REPOSITORY HNO ID: [id number] Author: Padmini Lopes Service: (none) Author Type: Physician Type: Progress Notes Filed: 10/01/2018 1:56 PM Note Text: SUBJECTIVE: 28 year old female presents for 1 week post-op exam. Pt reports DARNELL, no visual changes or RUQ/Nausea. Pt reports is taking labetalol 200mg - last took it about 2hrs. Pt offers no other complaints currently. OBJECTIVE: Incision: Dry and intact, without redness- mild ecchymosis Abdomen: Soft, Non-tender, No palpable masses and No hepatosplenomegaly. PLAN: RTO Friday for BP check [facility] notified- pt going there for serial BPs and PRE E labs- possible 24hr MAGNESIUM reviewed with patient. DOC notified of plan and will follow up labs I have reviewed and updated past medical and surgical history, medications and allergies. Padmini Lynch MD CNOV Observed: 10/01/2018 Status: COMPLETED Source: [place] 1:20 PM [facility] REPOSITORY Office Visit (WOOB) JONATHAN BATES ([id number]) 1990 F Date Time Provider Department 10/01/18 1:20 PM PADMINI CORONADO During your visit today, we recorded the following information about you: Blood pressure Weight 156/111 59 kg Padmini Lynch MD 10/01/2018 1:56 PM Signed SUBJECTIVE: 28 year old female presents for 1 week post-op exam. Pt reports DARNELL, no visual changes or RUQ/Nausea. Pt reports is taking labetalol 200mg - last took it about 2hrs. Pt offers no other complaints currently. OBJECTIVE: Incision: Dry and intact, without redness- mild ecchymosis Abdomen: Soft, Non-tender, No palpable masses and No hepatosplenomegaly. PLAN: RTO Friday for BP check [facility] notified- pt going there for serial BPs and PRE E labs- possible 24hr MAGNESIUM reviewed with patient. DOC notified of plan and will follow up labs I have reviewed and updated past medical and surgical history, medications and allergies. Padmini Lynch MD Referring Provider: PADMINI CORONADO [[id number]] Allergies As of Date: 10/01/2018 (No Known Allergies) Date Reviewed: 10/01/2018 Reviewed by: Cheyenne Gray Ma - Fully Assessed Reason for Visit: Care [85] Post-Op Visit [1236] Reason For Visit History Recorded Primary Visit Diagnosis:Preeclampsia in period [O14.95] Other Visit Diagnosis:Post-operative state [Z98.890] Prescriptions as of 10/01/2018 Sig: LABETALOL 100 MG TABLET TWICE A DAY SERTRALINE 50 MG TABLET TAKE 1 TABLET BY MOUTH ONCE D* VITAMIN,CALCIUM,MINE* Take 1 tablet by mouth. OXYCODONE-ACETAMINOPHEN 5 MG-* LORATADINE 10 MG TABLET Take 1 tablet by mouth once d* FLUTICASONE 50 MCG/ACTUATION * Use 2 Sprays in each nostril * PROMETHAZINE 12.5 MG TABLET Take 1 tablet by mouth every * Problem List As Of Date 10/01/2018 Noted Resolved Supervision of normal first [Z34.00] INVALID FOR*06/04/2011 Otitis media of left ear [H66.92] INVALID FOR*11/18/2014 Previous delivery affecting *INVALID FOR* More... History of depression [Z86.59] INVALID FOR* More... Patient requested diagnostic testing [Z01.89] INVALID FOR*06/02/2017 More... More... Short interval between pregnancies affecting pr*INVALID FOR* More... Tobacco use during , antepartum [O99.3*INVALID FOR* More... Encounter Status:Closed by PADMINI LPOES MD on 10/01/18 PROGRESS Observed: 09/28/2018 Status: COMPLETED Source: [place] 4:41 PM [facility] REPOSITORY HNO ID: [id number] Author: Dara Pedraza LPN Service: (none) Author Type: (none) Type: Progress Notes Filed: 09/28/2018 4:44 PM Note Text: Pt delivered via RC/S at [facility] on 09/24/[address] Short with NURSING TECH. See OB Outcome note. Pt has 2 week post check. Dara Pedraza LPN HOSP Observed: 09/28/2018 Status: COMPLETED Source: [place] 12:00 AM [facility] REPOSITORY Patient Update (WOOB) JONATHAN BATES ([id number]) 1990 F Date Time Provider Department 09/28/18 BONIFACIO SHORT During your visit today, we recorded the following information about you: Dara Pedraza LPN 09/28/2018 4:44 PM Signed Pt delivered via RC/S at [facility] on 09/24/[address] Short with NURSING TECH. See OB Outcome note. Pt has 2 week post check. Dara Pedraza LPN Allergies As of Date: 09/28/2018 (No Known Allergies) Date Reviewed: 09/22/2018 Reviewed by: Cheyenne Gray Ma - Fully Assessed Prescriptions as of 09/28/2018 Sig: SERTRALINE 50 MG TABLET TAKE 1 TABLET BY MOUTH ONCE D* LORATADINE 10 MG TABLET Take 1 tablet by mouth once d* FLUTICASONE 50 MCG/ACTUATION * Use 2 Sprays in each nostril * PROMETHAZINE 12.5 MG TABLET Take 1 tablet by mouth every * VITAMIN,CALCIUM,MINE* Take 1 tablet by mouth. Problem List As Of Date 09/28/2018 Noted Resolved Supervision of normal first [Z34.00] INVALID FOR*06/04/2011 Otitis media of left ear [H66.92] INVALID FOR*11/18/2014 Previous delivery affecting *INVALID FOR* More... History of depression [Z86.59] INVALID FOR* More... Patient requested diagnostic testing [Z01.89] INVALID FOR*06/02/2017 More... More... Short interval between pregnancies affecting pr*INVALID FOR* More... Tobacco use during , antepartum [O99.3*INVALID FOR* More... Encounter Status:Closed by DARA PEDRAZA LPN on 09/28/18 DISCHARGE SUMMARY Observed: 09/27/2018 Status: F Source: [place] 10:49 AM [facility] REPOSITORY [facility] Medical Records Department [address] [place] [address] Discharge Summary 09/27/18 1048 MR#: [id number] Acct: [id number] Name: JONATHAN BATES Rep #: [id number] : 1990 28 From: Trena Dominguez CNM PCP: Care Physician, No Primary Status: ADM IN Location: [place] [id number] Discharge Date and Diagnosis - Problem List Patient Problems: Active and Suspected Problems (Last Updated 09/24/18 @ 10:00 by Padmini Lynch MD) Delivery by section of full-term infant (Acute) Date of Admission: 09/24/18 Date of Discharge: 09/27/18 - Primary Discharge Diagnosis Active and Suspected Problems (Last Updated 09/24/18 @ 10:00 by Padmini Lynch MD) Delivery by section of full-term (Acute) Hospital Course and Treatment Summary of Care Provided: The patient is a 28 year old F [] Patient Problems: Active and Suspected Problems (Last Updated 09/24/18 @ 10:00 by Padmini Lynch MD) Delivery by section of full-term infant (Acute) - Physical Exam Vital Signs Temp Pulse Resp BP Pulse Ox 97.6 F L 61 18 147/92 H 97 09/27/18 08:35 09/27/18 08:35 09/27/18 08:35 09/27/18 08:40 09/27/18 08:35 Oxygen Flow Rate (L/min) 2 Oxygen Delivery Method Room Air Weight: 149 lb 11.102 oz Body Mass Index (BMI) 25.7 Intake and Output for Last 24 Hours Intake Total 2867 / 2867 Output Total 1845 / 1845 600 / 600 Balance 1022 / 1022 -600 / -600 Discharge Diet: No Restrictions Discharge Activity: Return to Normal Activity, May not drive while taking narcotic pain medications., May Shower May resume sexual activity in: 4-6 weeks Weight Bearing Status: Full weight bearing Call your doctor if your incision/area has: Continuous Slow Oozing, Sudden Increased Bleeding, Increased Pain/ Swelling, Increased Redness, Foul Smelling Discharge Call your doctor if you observe: Fever of 101 or Higher, Numbness or Tingling, Inability to urinate, Inability to have a bowel movement, Using more than one pad per hour, Shortness of breath, Chest pain, Increased palpitations (irregular heartbeat), Calf discomfort, Uncontrolled pain Remove Dressing in (days):: 4 Home Medications: Medications to take at Discharge Sertraline HCl [Zoloft] 50 mg PO DAILY 03/21/17 Pnv95/Ferrous Fumarate/FA [ Formula Tablet] 1 each PO DAILY 04/11/18 Ferrous Sulfate 325 mg PO DAILY@1200 tablet 09/27/18 Labetalol [Trandate (Beta Hui)] 100 mg PO BID 30 Days #60 tablet 09/27/18 Oxycodone HCl/Acetaminophen [Percocet 5/325] 1 - 2 tab PO Q4H PRN PRN 7 Days #20 tab 09/27/18 Senna/Docusate Sodium [Senokot-S] 1 - 2 tablet PO DAILY PRN tablet 09/27/18 Following Prescrptions Were Given to Patient: Oxycodone HCl/Acetaminophen [Percocet 5/325] 1 - 2 tab PO Q4H PRN PRN 7 Days #20 tab PRN Reason: Pain Labetalol [Trandate (Beta Hui)] 100 mg PO BID 30 Days #60 tablet Primary Care Physician: Care Physician,No Primary [Primary Care Provider] - Please Follow Up With: Bonifacio Short When: 6 weeks Disposition: Home Patient Condition:: Good Medical Necessity - Tobacco Use Smoking Status: Current every day smoker Meaningful Use Info Meaningful Use Diagnoses (Choose all that apply): None applicable 09/27/18 1049 <Electronically signed by Trena Dominguez CNM> Date Trena Dominguez CNM Cosigner Signature (if applicable): Date CC: SALLY Dominguez; No Primary Care Physician Signed DISCHARGE INSTRUCTION Observed: 09/27/2018 Status: F Source: [place] 10:48 AM [facility] REPOSITORY [facility] Medical Records Department [address] [place] [id number] Instructions for Home/Discharge Instructions 09/27/18 1045 MR#: [id number] Acct: [id number] Name: CALOSJONATHAN Myah Rep #: [id number] : 1990 28 From: Trena Dominguez CNM PCP: Care Physician, No Primary Status: ADM IN Discharge Diet: No Restrictions Discharge Activity: Return to Normal Activity, May not drive while taking narcotic pain medications., May Shower May resume sexual activity in: 4-6 weeks Weight Bearing Status: Full weight bearing Lifting Restrictions: Less than 20 lbs Call your doctor if your incision/area has: Continuous Slow Oozing, Sudden Increased Bleeding, Increased Pain/ Swelling, Increased Redness, Foul Smelling Discharge Call your doctor if you observe: Fever of 101 or Higher, Numbness or Tingling, Inability to urinate, Inability to have a bowel movement, Using more than one pad per hour, Shortness of breath, Chest pain, Increased palpitations (irregular heartbeat), Calf discomfort, Uncontrolled pain Remove Dressing in (days):: 4 Additional Instructions: If you experience any of the following, contact your healthcare provider. * Bleeding that soaks a pad every hour for 2 hours * Fever 100.4 or higher * Unrelieved incision or abdominal pain * Swelling, redness, discharge or bleeding from your incision or episiotomy site * Your incision begins to separate * Problems urinating (including inability to urinate or burning while urinating). * Visual changes * Severe headache * Flu-like symptoms * Pain or redness in one of both of your breasts * Pain, warmth, tenderness or swelling in your legs, especially the calf area * Frequent nausea and vomiting * Symptoms of depression or anxiety If you experience any of the following, call 911 or go to the nearest Emergency Room. * Chest pain * Problems breathing * Seizure activity * Partial or complete paralysis of a body part, slurred speech, weakness or drooping of the face, or a sudden inability to walk or hold your balance Allergies/Adverse Reactions: Allergies No Known Allergies Allergy (Verified 09/22/18 10:56) Medications to take at Discharge Sertraline HCl [Zoloft] 50 mg PO DAILY 03/21/17 Pnv95/Ferrous Fumarate/FA [ Formula Tablet] 1 each PO DAILY 04/11/18 Ferrous Sulfate 325 mg PO DAILY@1200 tablet 09/27/18 Labetalol [Trandate (Beta Hui)] 100 mg PO BID 30 Days #60 tablet 09/27/18 Oxycodone HCl/Acetaminophen [Percocet 5/325] 1 - 2 tab PO Q4H PRN PRN 7 Days #20 tab 09/27/18 Senna/Docusate Sodium [Senokot-S] 1 - 2 tablet PO DAILY PRN tablet 09/27/18 The following prescriptions were given: Oxycodone HCl/Acetaminophen [Percocet 5/325] 1 - 2 tab PO Q4H PRN PRN 7 Days #20 tab PRN Reason: Pain Labetalol [Trandate (Beta Hui)] 100 mg PO BID 30 Days #60 tablet Please Follow Up With: Bonifacio Short When: Call to make an appointment with your doctor in 3 days for a blood pressure check, 2 weeks for an incision check and 6 weeks for visit. If you had elevated Blood Pressure or 4th degree laceration you will need to be seen in 2 weeks. Primary Care Physician: Care Physician,No Primary [Primary Care Provider] - Test Results: Test results from this visit will be discussed in further detail at your follow-up appointment, if applicable. Proposed Discharge Date: 09/27/18 09/27/18 1048 <Electronically signed by Trena Dominguez CNM> Date Trena Dominguez CNM CC: No Primary Care Physician CBC-COMPLETE BLOOD CNT Collected: 09/25/2018 Status: F Source: [place] NO DIFF 11:10 PM [facility] REPOSITORY TYPE CODE TESTS RESULT OUT OF RANGE REFERENCE UNITS LAB L100.1000 4.4-11.0 K/mm3 High WBC 12.6 LAB L100.1200 4.2-5.4 M/mm3 Low RBC 2.95 LAB L100.1300 12.0-15.0 g/dl Low HGB 8.1 LAB L100.1400 37-47 % Low HCT 25.2 LAB L100.1500 81-99 fL Normal MCV 85.4 LAB L100.1600 27.0-32.0 pg Normal MCH 27.5 LAB L100.1700 32-36 g/gl Normal MCHC 32.1 LAB L100.1810 11.6-14.6 % Normal RDW CV 14.3 LAB L100.1820 35.1-43.9 fl Normal RDW SD 43.0 LAB L100.1900 150-450 K/mm3 Normal PLT 219 LAB L100.2000 6.2-12.0 fl Normal MPV 9.6 Performed By: #### L100.0500 #### [facility] [address] [place], [address] CBC W/DIFF, AUTOMATED Collected: 09/25/2018 Status: C Source: [place] 9:57 AM [facility] REPOSITORY TYPE CODE TESTS RESULT OUT OF RANGE REFERENCE UNITS LAB L100.1000 4.4-11.0 K/mm3 High WBC 13.7 LAB L100.1200 4.2-5.4 M/mm3 Low RBC 2.27 LAB L100.1300 12.0-15.0 g/dl Low alert HGB 5.9 Result Comment: CRITICAL VALUE VERIFIED. CALLED TO ROSALINA SALAZAR 09/25/18 Suman7 Maciej R Stoner. RESULTS READ BACK BY SAME. LAB L100.1400 37-47 % Low HCT 18.4 LAB L100.1500 81-99 fL Normal MCV 81.1 LAB L100.1600 27.0-32.0 pg Low MCH 26.0 LAB L100.1700 32-36 g/gl Normal MCHC 32.1 LAB L100.1810 11.6-14.6 % Normal RDW CV 14.2 LAB L100.1820 35.1-43.9 fl Normal RDW SD 41.5 LAB L100.1900 150-450 K/mm3 Normal PLT 232 LAB L100.2000 6.2-12.0 fl Normal MPV 8.7 LAB L100.2100 47-70 % High NEUT% 82.5 LAB L100.2200 19-41 % Low LY% 11.7 LAB L100.2300 0-10 % Normal MONO% 5.3 LAB L100.2400 0-5 % Normal EO% 0.3 LAB L100.2500 0-1 % Normal BASO% 0.1 LAB L100.2550 0.0-0.9 % Normal IM GRAN % 0.100 Result Comment: IG% - Immature Granulocytes (promyelocytes, myelocytes and metamyelocytes) > 1% indicates that a LEFT SHIFT is Present. LAB L100.2620 2.0-7.7 X10 3/uL High Absolute Neut 11.3 LAB L100.2720 0.83-4.51 X10 3/ul Normal Absolute Lymph 1.60 LAB L100.9900 Normal PATH REV Reviewed Result Comment: Neutrophilic leukocytosis. Severe Normocytic anemia. Clinical correlation necessary. Jimbo Aguiar M.D. 09/25/18 AMENDED REPORT 09/25/18 1556 PATH REV previously reported as: February Performed By: #### L100.0100 #### [facility] [address] [place], [address] CBC-COMPLETE BLOOD CNT Collected: 09/25/2018 Status: F Source: [place] NO DIFF 6:55 AM [facility] REPOSITORY Order Comment: Comments: Day #1 Reason for Laboratory Test TYPE CODE TESTS RESULT OUT OF RANGE REFERENCE UNITS LAB L100.1000 4.4-11.0 K/mm3 High WBC 16.1 LAB L100.1200 4.2-5.4 M/mm3 Low RBC 2.39 LAB L100.1300 12.0-15.0 g/dl Low HGB 6.5 LAB L100.1400 37-47 % Low HCT 19.8 LAB L100.1500 81-99 fL Normal MCV 82.8 LAB L100.1600 27.0-32.0 pg Normal MCH 27.2 LAB L100.1700 32-36 g/gl Normal MCHC 32.8 LAB L100.1810 11.6-14.6 % Normal RDW CV 13.8 LAB L100.1820 35.1-43.9 fl Normal RDW SD 39.6 LAB L100.1900 150-450 K/mm3 Normal PLT 264 LAB L100.2000 6.2-12.0 fl Normal MPV 9.3 Performed By: #### L100.0500 #### [facility] [address] [place], [place], [address] CNCO Observed: 09/25/2018 Status: COMPLETED Source: [place] 12:00 AM [facility] REPOSITORY Letter Text Bonifacio Short M.D. [facility] [address] [place], [place] [address] 09/25/2018 Re: Jamison Ambrosio Date of 1990 To Whom it May Concern, Please excuse Jamison Ambrosio from work on 09/24/18 and 09/25/18 for the of his baby. Please contact our office if you have any further questions. Sincerely, Bonifacio Short M.D. OPERATIVE REPORT Observed: 09/24/2018 Status: F Source: [place] 3:35 PM [facility] REPOSITORY [facility] Medical Records Department [address] [place] [address] Operative Report 09/24/18 1527 MR#: [id number] Acct: [id number] Name: JONATHAN BATES Rep #: [id number] : 1990 28 From: Bonifacio Short PCP: Care Physician, No Primary Status: ADM IN [id number] Classification: NATALIA Final KVNG: 10/06/18 Gestational age: 38 Weeks and 2 Days Indications: Patient presented to L AND D and was diagnosed with preeclampsia. Indications for : Repeat Elective , Desires elective sterilization Description of Procedure: Patient taken to OR where she was prepped and draped in normal sterile fashion in a dorsal lithotomy position with a leftward tilt. After ensuring adequacy of anesthesia the Pfannensteil skin incision was made AND old scar tissue excised. The incision was carried through to the underlying fascia w/ a bovie. The fascia was incised in the midline and carried laterally with the Shearer scissors. The rectus muscles were scarred together other than a small opening. Bovie cautery was used to further separate the muscles. The peritoneum was entered bluntly AND carefully. The bladder flap was adhered to the MAC and it was dissected down with the Metzenbaum scissors and careful blunt dissection. The uterine incision was made with the scalpel and extended laterally w/ gentle traction. The fetus was vertex and the head was brought to the incision in the flexed position. With good fundal pressure the head delivered easily. The shoulders AND body delivered easily with additional fundal pressure. The cord was clamped and cut after 1 minute delay and the handed off to waiting RN. The placenta was delivered w/ gentle traction and fundal massage and the uterus was exteriorized and cleared of all clots and debris. The uterine incision was closed with 1 vicryl suture in a running locked fashion. A second layer monocryl was used to imbricate the first layer and obtain hemostasis. The left fallopian tube was grasped AND doubly suture ligated. Tube segment excised AND hemostasis confirmed at tubal site. Process repeated on the right side AND again hemostasis confirmed. The uterus was returned to the peritoneal cavity which was cleared of all clots and debris. Tubal sutures were confirmed intact AND tubal sites hemostatic. Pelvis was irrigated. A figure of 8 suture was needed on the left side of the incision to obtain hemostasis. The uterine incision was reexamined and found to be hemostatic. Some amauri was placed over the uterine incision AND bladder flap due to the denuded areas. The fascia was closed with looped PDS suture in a running standard fashion. The subcutaneous tissue was examined, any bleeding bovie cauterized. The subcutaneous tissue was reapproximated with 3-0 vicryl suture. The skin was closed in a subcuticular fashion by the NURSING TECH with me present in the labor and delivery suite. I performed the remainder of the procedure with assistance. 09/24/18 1535 <Electronically signed by Bonifacio Short > Date Bonifacio Short CC: No Primary Care Physician; Bonifacio Short Signed FALLOPIAN TUBES/STERILIZATION Observed: 09/24/2018 Status: F Source: [place] 2:43 PM [facility] REPOSITORY Patient: JONATHAN BATES : 1990 () Acct Num: [id number] Phys: Bonifacio Short Unit Num: [id number] Loc: [facility] IY805-9 Specimen: [id number] Received: 09/25/18 - 0008 Spec Type: FALL TUBES TISSUES 1 TISSUES: Fallopian tube GROSS DESCRIPTION Received is one container labeled with the patient's name and designated bilateral fallopian tubes, suture in right. The specimen consists of two tubular pieces of vigil soft tissue with the right identified by a suture and measures 1 cm in length and 0.7 cm in diameter. The left fallopian tube measures 1.5 cm in length and 0.7 cm in diameter. The right tube is inked black. The entire specimen is submitted in one cassette. Both pieces will be sectioned at the time of embedding. / DARIEN:jesica 09/25/18 TC:4 CPT: 56471 x2 HEADER OPERATION: Tubal ligation PRE-OP DIAGNOSIS: Requests sterilization TISSUE SUBMITTED: Left and right fallopian tubes MICROSCOPIC DESCRIPTION Slides are reviewed. MICROSCOPIC DIAGNOSIS Left and right fallopian tubes, tubal ligation: Completely transected segments of bilateral fallopian tubes, no pathologic diagnosis. DARIEN:jesica 09/28/18 Signed Jimbo Aguiar 09/28/18 <signature on file> Performed By: #### PFALS #### [facility] [place], [address] HISTORY AND PHYSICAL Observed: 09/24/2018 Status: F Source: [place] EXAM 10:05 AM [facility] REPOSITORY [facility] Medical Records Department [address] [place] [address] History and Physical 09/24/18 0957 MR#: [id number] Acct: [id number] Name: JONATHAN BATES Rep #: [id number] : 1990 28 From: Padmini Lopes MD PCP: Care Physician, No Primary Status: ADM IN Y Location: [place] [id number] History Date of Admission: 09/24/18 Final KVNG: 10/06/18 Final KVNG Source: US <20 weeks Gestational age: 38 Weeks and 2 Days History of this : This is a 28 year-old, G 3P2 @ 38.3 wks presents to L AND D with headache- Pt was found to have elevated BP and proteinuria. pt was scheduled for repeat c/s and BTO at 39 wks. Pt denies visual changes. pt reports does have head cold- no fever. +vomiting. Medical History: Medical History (Last Updated 09/24/18 @ 10:00 by Padmini Lopes MD) Depression F32.9 Preeclampsia O14.90 Allergies No Known Allergies Allergy (Verified 09/22/18 10:56) Home Medications: Home Medications Sertraline HCl [Zoloft] 50 mg PO DAILY 03/21/17 Pnv95/Ferrous Fumarate/FA [ Formula] 1 each PO DAILY 04/11/18 Smoking Status: Current every day smoker Alcohol: None Substance Use Type: Marijuana Number of Fetus(es): 1 Heart Tracin mod lesli, +accels, no decels TOCO Analysis: irregular History Past Pregnancies: Past Pregnancies Delivery Name GA/Weeks Outcome Route WeiInfant GeLabor LenAnesthesiDelivery Provider FOB Date ght nder gth a Location Labs: AB+, GBS neg, RUB imm, HEP NEg, HIV NR, syphilis neg Review of Systems Eyes: Denies: Blurred vision HEENT: Reports: Head Aches Cardiovascular: Denies: Chest Pain Gastrointestinal: Reports: Vomiting Physical Exam General: Alert, Oriented x3 Abdomen: Soft, Gravid Neurological: Cranial nerves II-XII grossly intact Assessment/Plan This is a 28 year-old, G 3P2 @ 38.3 wks, PREECLAMPSIA - elective repeat c/s 1) labs reviewed- Proteinuria, will give tylenol for DARNELL- if resolved would not recommend Magnesium therapy as DARNELL likely from current Congestion and URI 2) C/S planned with BTO 3) Pt was counseled on risks of surgery and consent was obtained 4) Montior VS 09/24/18 1005 <Electronically signed by Padmini Lopes MD> Date Padmini Lynch MD Cosigner Signature: Date (if applicable) CC: No Primary Care Physician; Padmini Lynch MD Signed RC Collected: 09/24/2018 Status: F Source: [place] 8:31 AM [facility] REPOSITORY TYPE CODE TESTS RESULT OUT OF REFERENCE UNITS RANGE LAB U100.0000 [id number] TRANSFUSED PRODUCT: T AND S with Crossmatch, Red Cells COUNT: 2 Performed By: #### U100.0000 #### [facility] - refer to report for specific site CBC-COMPLETE BLOOD CNT Collected: 09/24/2018 Status: F Source: [place] NO DIFF 8:13 AM [facility] REPOSITORY TYPE CODE TESTS RESULT OUT OF RANGE REFERENCE UNITS LAB L100.1000 4.4-11.0 K/mm3 High WBC 12.8 LAB L100.1200 4.2-5.4 M/mm3 Low RBC 4.14 LAB L100.1300 12.0-15.0 g/dl Low HGB 11.0 LAB L100.1400 37-47 % Low HCT 33.6 LAB L100.1500 81-99 fL Normal MCV 81.2 LAB L100.1600 27.0-32.0 pg Low MCH 26.6 LAB L100.1700 32-36 g/gl Normal MCHC 32.7 LAB L100.1810 11.6-14.6 % Normal RDW CV 13.9 LAB L100.1820 35.1-43.9 fl Normal RDW SD 41.4 LAB L100.1900 150-450 K/mm3 Normal PLT 293 LAB L100.2000 6.2-12.0 fl Normal MPV 9.1 Performed By: #### L100.0500 #### [facility] [address] [place], [address] PROTHROMBIN TIME W/INR Collected: 09/24/2018 Status: F Source: [place] 8:13 AM [facility] REPOSITORY TYPE CODE TESTS RESULT OUT OF RANGE REFERENCE UNITS LAB L300.4150 11.7-14.9 SECONDS Normal PROTIME 12.3 LAB L300.4200 Normal INR 0.9 Performed By: #### L300.3900, L300.4310 #### [facility] [address], [address] PARTIAL THROMBOPLAST Collected: 09/24/2018 Status: F Source: [place] TIME 8:13 AM [facility] REPOSITORY TYPE CODE TESTS RESULT OUT OF REFERENCE UNITS RANGE LAB L300.4310 24.1-36.2 Seconds Low PTT 23.8 Performed By: #### L300.3900, L300.4310 #### [facility] [address], [address] SERUM CREATININE AND Collected: 09/24/2018 Status: F Source: [place] GFR 8:13 AM [facility] REPOSITORY TYPE CODE TESTS RESULT OUT OF RANGE REFERENCE UNITS LAB L501.1100 0.55-1.02 mg/dL Normal 0.57 CREAT,SERUM Result Comment: The validity of the calculated GFR AND GFRAA in patients over 70 years has not been determined. Clinical correlation is essential. LAB L501.1110 >60 mL/min Normal EST GFR 133 Result Comment: Non- GFR Calc LAB L501.1115 >60 mL/min Normal EST GFR - AA 161 Result Comment: GFR Calc Performed By: #### L501.1105, L501.1400, L501.4100, L501.4405 #### [facility] [address] [place], [address] URIC ACID Collected: 09/24/2018 Status: F Source: [place] 8:13 AM [facility] REPOSITORY TYPE CODE TESTS RESULT OUT OF RANGE REFERENCE UNITS LAB L501.1400 2.6-6.0 mg/dL Normal URIC 5.5 Result Comment: The drugs N-Acetylcysteine and Metamizole may falsely depress this assay. Performed By: #### L501.1105, L501.1400, L501.4100, L501.4405 #### [facility] [address] [place], [address] AST(SGOT) Collected: 09/24/2018 Status: F Source: [place] 8:13 AM [facility] REPOSITORY TYPE CODE TESTS RESULT OUT OF RANGE REFERENCE UNITS LAB L501.4100 15-37 U/L Normal AST 22 Performed By: #### L501.1105, L501.1400, L501.4100, L501.4405 #### [facility] [address] [place], [address] ALANINE AMINOTRANSFERAS Collected: 09/24/2018 Status: F Source: [place] (SGPT) 8:13 AM [facility] REPOSITORY TYPE CODE TESTS RESULT OUT OF RANGE REFERENCE UNITS LAB L501.4405 13-56 U/L Normal ALT 23 Performed By: #### L501.1105, L501.1400, L501.4100, L501.4405 #### [facility] [address] [place], [address] PROTEIN+CREATININE Collected: Status: F Source: [place] RATIO,URINE 09/24/2018 8:13 AM [facility] REPOSITORY TYPE CODE TESTS RESULT OUT OF RANGE REFERENCE UNITS LAB L501.1200 NO RANGE EST. mg/dL Normal UR CREAT 278.00 LAB L501.1930 <11.9 mg/dL High 431.1 PROTEIN,UR.R AN. LAB L501.1940 0-200 mg/g CRE High PROT:CRE 1551 RATIO Performed By: #### L501.0900 #### [facility] [address] [place], [address] TYPE AND SCREEN Collected: 09/24/2018 Status: F Source: [place] 8:13 AM [facility] REPOSITORY Order Comment: Reason for Type AND Screen/Red Cells: SURGERY Surgery Date: 09/24/18 Time: 1200 Type of Surgery: TYPE CODE TESTS RESULT OUT OF RANGE REFERENCE UNITS LAB B10.0800 AB Normal BLOOD TYPE GEL POSITIVE LAB B100.4000 Normal Antibody NEGATIVE Screen Performed By: #### B101.7450 #### [facility] [address] [place], [address] PATHOLOGY SPECIMEN OB Collected: 09/24/2018 Status: F Source: [place] 12:00 AM [facility] REPOSITORY Order Comment: Send Specimen For (Specify): Studies @ [facility] Lab:Routine Time of Procedure: 1443 Date of Procedure: 09/24/18 Reason specimen being sent to pathology (Hx/complications): LEFT AND RIGHT TUBES Type of specimen: Fallopian Tube Type of procedure performed: Tubal Ligation TYPE CODE TESTS RESULT OUT OF RANGE REFERENCE UNITS LAB L350.1800 SEE Normal PATH. PATHOLOGY Spec. OB REPORT Result Comment: Specimen submitted to Anatomical Pathology Department for testing. Performed By: #### L350.1800 #### [facility] [address] [place], [address] HISTORY PHYSICAL Observed: 09/22/2018 Status: COMPLETED Source: [place] 10:09 AM [facility] REPOSITORY O ID: [id number] Author: Padmini Lopes Service: (none) Author Type: Physician Type: HANDP Filed: 09/22/2018 10:17 AM Note Text: Pre-Op History and Physical HPI: The patient is a 28 year old female presenting for pre-operative visit. She is scheduled for and Tubal ligation, for elective repeat c/s and desires sterilization on 09/29/18. Procedure discussed along with risks, benefits and complications. Other alternatives discussed for management. Consent form signed? Yes. 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 Disp: 30 tablet Rfl: 0 fluticasone (FLONASE) 50 mcg/actuation nasal spray Use 2 Sprays in each nostril once daily. Rinse mouth after use. Disp: 1 Bottle Rfl: 0 promethazine (PHENERGAN) 12.5 mg tablet Take 1 tablet by mouth every 6 hours as needed. Disp: 30 tablet Rfl: 0 Udkpsdae-Ku-Uly-Fe-FA ( VITAMIN) tab Take 1 tablet by mouth. Disp: Rfl: No current facility-administered medications for this visit. ALLERGIES: Patient has no known allergies. PERSONAL HISTORY: Social History Marital status: Single Spouse name: Years of education: 12 Number of children: 2 Occupational History Occupation Employer Comment [employer] Social History Main Topics Smoking status: Current Every Day Smoker Packs/day: 0.00 Years: 6.00 Smokeless tobacco: Never Used Comment: 2-3 cigarettes a week Alcohol use: Yes Comment: OCCASIONALLY , not while Drug use: No Sexual activity: Yes Partners with: Male control/protection: Pill FAMILY HISTORY: FAMILY HISTORY Problem Relation Age of Onset - No Known Problems Mother - No Known Problems Father - No Known Problems Sister - No Known Problems Sister - Hypertension Brother - Hyperlipidemia Brother - No Known Problems Brother - Heart Maternal Grandmother - Hypertension Maternal Grandmother - Genitourinary () Maternal Grandmother kidney stones - other (glaucoma) Maternal Grandmother - Diabetes Maternal Grandfather - Heart Maternal Grandfather - Hypertension Maternal Grandfather - Emphysema Maternal Grandfather - other (liver problems) Maternal Grandfather - Asthma Paternal Grandmother - Hypertension Paternal Grandfather - No Known Problems Son - No Known Problems Daughter REVIEW OF SYMPTOMS: negative except as noted above PHYSICAL EXAMINATION: VITALS: Blood pressure 118/72, weight 150 lb (68 kg), last menstrual period 01/22/2018, not currently . GENERAL: The patient is well nourished, well hydrated in no acute distress. , The patient is oriented to time, place, and person. Abdomen: Soft, gravid, non tender. FHR: 154, FH 38cm WET PREP: Not indicated IMPRESSION: @ 38 weeks PLAN: Repeat c/s and BTL Pt has been counseled on risks/benefits and alternatives of surgery including but not limited to anesthesia, bleeding, infection, injury to pelvic structures including bowel, bladder, ureters and vessels. Pt wishes to proceed with surgery at this time. I have reviewed and updated past medical and surgical history, medications and allergies Padmini Lopes MD GROUP B STREP PCR Collected: 09/09/2018 Status: F Source: [place] 1:45 PM [facility] REPOSITORY TYPE CODE TESTS RESULT OUT OF REFERENCE UNITS RANGE LAB GBPCRT Negative for GROUP Group B B STREP PCR Streptococcus by PCR. Performed By: #### GBPCR #### [facility] [address], [place] [address] PROGRESS Observed: 08/26/2018 Status: COMPLETED Source: [place] 1:57 PM [facility] REPOSITORY HNO ID: [id number] Author: Cheyenne Gray Ma Service: (none) Author Type: (none) Type: Progress Notes Filed: 08/26/2018 2:16 PM Note Text: Patient identified by name and date of . Jonathan Bates presents today for a vaccination of Tdap. Patient denies an allergy to latex: yes Patient denies a severe (life-threatening) allergy to a previous dose of Tdap, DTP, DTaP, DT or Td vaccine. Yes Patient denies history of epilepsy or neurological problems: Yes Patient is afebrile and denies being moderately or severely ill: Yes Patient denies history of Guillain-Chadbourn Syndrome (a severe paralytic illness): Yes Tdap Adacel injection was given without incident. See immunizations for details of immunizations administered today. VIS sheet provided: Yes Provider Robert was present in office at time of injection. Cheyenne Gray Ma PROGRESS Observed: 07/29/2018 Status: COMPLETED Source: [place] 11:16 AM [facility] REPOSITORY HNO ID: [id number] Author: Chester Herring Service: (none) Author Type: Physician Type: Progress Notes Filed: 07/29/2018 11:18 AM Note Text: A ricci intrauterine The size is AGA Estimated Date of Delivery: 10/06/18 EGA = 30w1d The anatomy appears normal in the areas visualized. The amniotic fluid volume is normal. There is no evidence of effusions and/ or hydrops. The placenta is fundal. RECOMMENDATIONS: - Self-assessment of kick counts - Watch for FGR and preeclampsia - Follow up ultrasound as clinically indicated CBC AND DIFFERENTIAL Collected: 07/29/2018 Status: F Source: [place] 10:59 AM [facility] REPOSITORY TYPE CODE TESTS RESULT OUT OF REFERENCE UNITS RANGE LAB WBC 3.70-11.00 k/uL WBC High 14.08 LAB RBC 3.90-5.20 m/uL Low RBC 3.82 LAB HGB 11.5-15.5 g/dL Hemoglobin 11.5 LAB HCT 36.0-46.0 % Hematocrit 36.4 LAB MCV 80.0-100.0 fL MCV 95.3 LAB MCH 26.0-34.0 pG MCH 30.1 LAB MCHC 30.5-36.0 g/dL MCHC 31.6 LAB RDWCV 11.5-15.0 % RDW-CV 13.5 LAB PLTCT 150-400 k/uL Platelet Count 354 LAB MPV 9.0-12.7 fL MPV 10.0 LAB ANEUT % Neut% 76.5 LAB AANEUT 1.45-7.50 k/uL Abs Neut High 10.78 LAB ALYMP % Lymph% 17.0 LAB AALYMP 1.00-4.00 k/uL Abs Lymph 2.39 LAB AMONO % Emmons% 4.8 LAB AAMONO <0.87 k/uL Abs Emmons 0.67 LAB AEOS % Eosin% 1.3 LAB AAEOS <0.46 k/uL Abs Eosin 0.19 LAB ABASO % Baso% 0.4 LAB AABASO <0.11 k/uL Abs Baso 0.05 LAB AUNRBC 0 /100 WBC NRBCs 0.0 LAB ABNRBC <0.01 k/uL Absolute nRBC <0.01 LAB DTYP DTYPE Auto Diff Performed By: #### CBCDIF #### [facility] [address], [place] [address] CBC Collected: 07/17/2018 Status: F Source: [place] 10:37 AM [facility] REPOSITORY TYPE CODE TESTS RESULT OUT OF REFERENCE UNITS RANGE LAB WBC 3.70-11.00 k/uL WBC High 17.68 LAB RBC 3.90-5.20 m/uL RBC 4.08 LAB HGB 11.5-15.5 g/dL Hemoglobin 12.4 LAB HCT 36.0-46.0 % Hematocrit 37.9 LAB MCV 80.0-100.0 fL MCV 92.9 LAB MCH 26.0-34.0 pG MCH 30.4 LAB MCHC 30.5-36.0 g/dL MCHC 32.7 LAB RDWCV 11.5-15.0 % RDW-CV 13.8 LAB PLTCT 150-400 k/uL Platelet Count 356 LAB MPV 9.0-12.7 fL MPV 10.2 LAB ABSNUC <0.01 k/uL Absolute nRBC <0.01 Performed By: #### CBC #### [facility] [address], [place] [address] 50G, 1HR GEST. Collected: 07/17/2018 Status: F [facility] REPOS[facility] TYPE CODE TESTS RESULT OUT OF REFERENCE UNITS RANGE LAB GLUP 74-134 mg/dL Glucose 123 Screen, Preg Result Comment: [place] [employer]nec[employer] (Patten/Coustan) guidelines state a gestational diabetes mellitus positive screen is made, in women not previously diagnosed with overt diabetes, when the 1 hr plasma glucose level is equal to or above 140 mg/dL. The [facility] [employer] [facility] [place] recommends a 135 mg/dL cutoff. Performed By: #### GLTGST #### [facility] [address], [place] [address] PROGRESS Observed: 07/17/2018 Status: COMPLETED Source: [place] 9:37 AM [facility] REPOSITORY HNO ID: [id number] Author: Cheyenne Gray Ma Service: (none) Author Type: (none) Type: Progress Notes Filed: 07/17/2018 9:57 AM Note Text: 28 year old female here for INACTIVATED INFLUENZA VACCINE. 4704-1695 Season Patient is identified by name and date of : Yes [] CONTRAINDICATIONS color enhanced section Age less than 6 months? No Allergy to eggs, chicken, chicken feathers, or chicken dander? No Allergy to thimerosal (a preservative) or formaldehyde, gelatin? No History of severe reaction to any vaccine component or a previous dose of influenza vaccination? No History of Guillain-Chadbourn Syndrome within 6 weeks after a previous influenza vaccine? No Patient is not moderately or severely ill? No Current temperature greater or equal to 100.4F? No History of Bone Marrow Transplant prior 6 months or solid organ transplant in the past 3 months ? No History of fainting after a prior injection or medical procedure? No- ? If patient has fainted in the past, the CDC recommends sitting or lying down for 15 minutes after the vaccination. [] VERIFICATION color enhanced section Was the answer Yes for any of the above contraindications? No contraindications present. Acceptable to proceed with vaccine. Patient/guardian agrees the above answers are true to the best of their knowledge? Yes Flu vaccine information sheet given? Yes See immunization activity in [facility] for details of immunizations adminstered today. Patient age: [age] year old For The 7628-7416 Flu Season 6-35 months old: Fluzone 0.25 ml - IM (Preservative Free) 3 years of age: Fluzone 0.5 ml - IM (Preservative Free) 3 years and older: Fluzone 0.5 ml- IM-(with Preservatives) 65+ years old: 2-49 years old Fluzone High-Dose 0.5 ml - IM (Preservative Free) FLUMIST- intranasal REMEMBER: If patient is less than 9 years of age and this is the first vaccine of Influenza to be received in any flu season, they should receive a second dose in one months time. PROGRESS Observed: 07/01/2018 Status: COMPLETED Source: [place] 9:54 AM [facility] REPOSITORY HNO ID: [id number] Author: Primo Bone) Bernard Service: (none) Author Type: Physician Microbiology Technologist Type: Progress Notes Filed: 07/01/2018 10:02 AM Note Text: Subjective HPI Pt presents with right ear being clogged. She was here 06/16 and had an ear infection. She finished the amoxil rx . The pain went away but she still feels like she can't hear out of it. She also has some nasal congestion and sore throat. She is currently 25 weeks . Review of Systems HENT: Positive for congestion, ear pain, hearing loss and sore throat. All other systems reviewed and are negative. PAST MEDICAL HISTORY Diagnosis Date - depression and anxiety - Kidney stones 2016 - Migraine, unspecified, with intractable migraine, so stated, without mention of status migrainosus Migraine - Other dyschromia cafe au lait right pham - PMH - PAST MEDICAL HISTORY OF normal color vision 09/10/2004 - depression - Reactive airway disease childhood Current Outpatient Prescriptions: sertraline (ZOLOFT) 50 mg tablet TAKE ONE TABLET BY MOUTH ONCE DAILY Disp: 30 tablet Rfl: 0 promethazine (PHENERGAN) 12.5 mg tablet Take 1 tablet by mouth every 6 hours as needed. Disp: 30 tablet Rfl: 0 Cbrxvphg-Ob-Yke-Fe-FA ( VITAMIN) tab Take 1 tablet by mouth. Disp: Rfl: loratadine (CLARITIN) 10 mg tablet Take 1 tablet by mouth once daily. Disp: 30 tablet Rfl: 0 fluticasone (FLONASE) 50 mcg/actuation nasal spray Use 2 Sprays in each nostril once daily. Rinse mouth after use. Disp: 1 Bottle Rfl: 0 No current facility-administered medications for this visit. PAST SURGICAL HISTORY Procedure Laterality Date - DELIVERY ONLY - DELIVERY ONLY 04/11/2017 - REMOVE TONSILS/ADENOIDS,<12 Y/O 1996 FAMILY HISTORY Problem Relation Age of Onset - No Known Problems Mother - No Known Problems Father - No Known Problems Sister - No Known Problems Sister - Hypertension Brother - Hyperlipidemia Brother - No Known Problems Brother - Heart Maternal Grandmother - Hypertension Maternal Grandmother - Genitourinary () Maternal Grandmother kidney stones - other (glaucoma) Maternal Grandmother - Diabetes Maternal Grandfather - Heart Maternal Grandfather - Hypertension Maternal Grandfather - Emphysema Maternal Grandfather - other (liver problems) Maternal Grandfather - Asthma Paternal Grandmother - Hypertension Paternal Grandfather - No Known Problems Son - No Known Problems Daughter Social History Substance Use Topics - Smoking status: Current Every Day Smoker Years: 6.00 - Smokeless tobacco: Never Used Comment: 2-3 cigarettes a day - Alcohol use Yes Comment: OCCASIONALLY , not while BP 110/64 Pulse 100 Temp 36.2 ?C (97.1 ?F) (Tympanic) Resp 18 Wt 61.8 kg (136 lb 3.2 oz) LMP 01/22/2018 (LMP Unknown) BMI 26.60 kg/m? Objective Physical Exam Constitutional: She is oriented to person, place, and time and well-developed, well-nourished, and in no distress. HENT: Head: Normocephalic and atraumatic. Right Ear: External ear and ear canal normal. Tympanic membrane is not injected, not perforated, not erythematous, not retracted and not bulging. A middle ear effusion is present. Left Ear: Tympanic membrane, external ear and ear canal normal. Nose: Mucosal edema and rhinorrhea present. Mouth/Throat: Uvula is midline, oropharynx is clear and moist and mucous membranes are normal. Cardiovascular: Normal rate, regular rhythm and normal heart sounds. Pulmonary/Chest: Effort normal and breath sounds normal. Neurological: She is oriented to person, place, and time. Skin: Skin is warm and dry. Psychiatric: Affect and judgment normal. Nursing note and vitals reviewed. ASSESSMENT/PLAN: 1. Middle ear effusion, right - ICD9: 381.4, ICD10: H65.91 (primary diagnosis) - rx claritin and flonase - Supportive care with plenty of fluids, rest, and analgesia prn. - Follow up in one week if symptoms persist or worsen. 2. Seasonal allergic rhinitis, unspecified trigger - ICD9: 477.9, ICD10: J30.2 KALE Mccall Observed: 07/01/2018 Status: COMPLETED Source: [place] 9:30 AM [facility] REPOSITORY Office Visit (WSTR) JONATHAN BATES ([id number]) 1990 F Date Time Provider Department 07/01/18 9:30 AM PRIMO AMIN) [facility] During your visit today, we recorded the following information about you: Temperature Pulse Respiration Blood pressure 97.1 degrees 100/minute 18/minute 110/64 Weight 61.8 kg Primo Amin PA-C 07/01/2018 10:02 AM Signed Subjective HPI Pt presents with right ear being clogged. She was here 06/16 and had an ear infection. She finished the amoxil rx . The pain went away but she still feels like she can't hear out of it. She also has some nasal congestion and sore throat. She is currently 25 weeks . Review of Systems HENT: Positive for congestion, ear pain, hearing loss and sore throat. All other systems reviewed and are negative. PAST MEDICAL HISTORY Diagnosis Date - depression and anxiety - Kidney stones 2016 - Migraine, unspecified, with intractable migraine, so stated, without mention of status migrainosus Migraine - Other dyschromia cafe au lait right pham - PMH - PAST MEDICAL HISTORY OF normal color vision 09/10/2004 - depression - Reactive airway disease childhood Current Outpatient Prescriptions: sertraline (ZOLOFT) 50 mg tablet TAKE ONE TABLET BY MOUTH ONCE DAILY Disp: 30 tablet Rfl: 0 promethazine (PHENERGAN) 12.5 mg tablet Take 1 tablet by mouth every 6 hours as needed. Disp: 30 tablet Rfl: 0 Afdzkzkl-Vk-Eos-Fe-FA ( VITAMIN) tab Take 1 tablet by mouth. Disp: Rfl: loratadine (CLARITIN) 10 mg tablet Take 1 tablet by mouth once daily. Disp: 30 tablet Rfl: 0 fluticasone (FLONASE) 50 mcg/actuation nasal spray Use 2 Sprays in each nostril once daily. Rinse mouth after use. Disp: 1 Bottle Rfl: 0 No current facility-administered medications for this visit. PAST SURGICAL HISTORY Procedure Laterality Date - DELIVERY ONLY - DELIVERY ONLY 04/11/2017 - REMOVE TONSILS/ADENOIDS,<12 Y/O 1997 FAMILY HISTORY Problem Relation Age of Onset - No Known Problems Mother - No Known Problems Father - No Known Problems Sister - No Known Problems Sister - Hypertension Brother - Hyperlipidemia Brother - No Known Problems Brother - Heart Maternal Grandmother - Hypertension Maternal Grandmother - Genitourinary () Maternal Grandmother kidney stones - other (glaucoma) Maternal Grandmother - Diabetes Maternal Grandfather - Heart Maternal Grandfather - Hypertension Maternal Grandfather - Emphysema Maternal Grandfather - other (liver problems) Maternal Grandfather - Asthma Paternal Grandmother - Hypertension Paternal Grandfather - No Known Problems Son - No Known Problems Daughter Social History Substance Use Topics - Smoking status: Current Every Day Smoker Years: 6.00 - Smokeless tobacco: Never Used Comment: 2-3 cigarettes a day - Alcohol use Yes Comment: OCCASIONALLY , not while BP 110/64 Pulse 100 Temp 36.2 ?C (97.1 ?F) (Tympanic) Resp 18 Wt 61.8 kg (136 lb 3.2 oz) LMP 01/22/2018 (LMP Unknown) BMI 26.60 kg/m? Objective Physical Exam Constitutional: She is oriented to person, place, and time and well-developed, well-nourished, and in no distress. HENT: Head: Normocephalic and atraumatic. Right Ear: External ear and ear canal normal. Tympanic membrane is not injected, not perforated, not erythematous, not retracted and not bulging. A middle ear effusion is present. Left Ear: Tympanic membrane, external ear and ear canal normal. Nose: Mucosal edema and rhinorrhea present. Mouth/Throat: Uvula is midline, oropharynx is clear and moist and mucous membranes are normal. Cardiovascular: Normal rate, regular rhythm and normal heart sounds. Pulmonary/Chest: Effort normal and breath sounds normal. Neurological: She is oriented to person, place, and time. Skin: Skin is warm and dry. Psychiatric: Affect and judgment normal. Nursing note and vitals reviewed. ASSESSMENT/PLAN: 1. Middle ear effusion, right - ICD9: 381.4, ICD10: H65.91 (primary diagnosis) - rx claritin and flonase - Supportive care with plenty of fluids, rest, and analgesia prn. - Follow up in one week if symptoms persist or worsen. 2. Seasonal allergic rhinitis, unspecified trigger - ICD9: 477.9, ICD10: J30.2 Primo Amin PA-C Referring Provider: SELF [200] Allergies As of Date: 07/01/2018 (No Known Allergies) Date Reviewed: 07/01/2018 Reviewed by: Dionna Moreno LPN - Fully Assessed Reason for Visit: right ear pain [Other] Cmt: x 2 weeks-cannot hear much out of ear Primary Visit Diagnosis:Middle ear effusion, right [H65.91] Other Visit Diagnosis:Seasonal allergic rhinitis, unspecified trigger [J30.2] Order(s):loratadine (CLARITIN) 10 mg tabletTake 1 tablet by mouth once daily.Disp: 30 tabletRfl: 0 fluticasone (FLONASE) 50 mcg/actuation nasal sprayUse 2 Sprays in each nostril once daily. Rinse mouth after use.Disp: 1 BottleRfl: 0 Prescriptions as of 07/01/2018 Sig: SERTRALINE 50 MG TABLET TAKE ONE TABLET BY MOUTH ONCE* PROMETHAZINE 12.5 MG TABLET Take 1 tablet by mouth every * VITAMIN,CALCIUM,MINE* Take 1 tablet by mouth. LORATADINE 10 MG TABLET Take 1 tablet by mouth once d* FLUTICASONE 50 MCG/ACTUATION * Use 2 Sprays in each nostril * Problem List As Of Date 07/01/2018 Noted Resolved Supervision of normal first [Z34.00] INVALID FOR*06/04/2011 Otitis media of left ear [H66.92] INVALID FOR*11/18/2014 Previous delivery affecting *INVALID FOR* More... History of depression [Z86.59] INVALID FOR* More... Patient requested diagnostic testing [Z01.89] INVALID FOR*06/02/2017 More... More... Short interval between pregnancies affecting pr*INVALID FOR* More... Tobacco use during , antepartum [O99.3*INVALID FOR* More... Prescriptions ordered this encounter Disp Refills Start End LORATADINE 10 MG TABLET 30 t* 0 07/01/2018 Route: ORAL Sig: Take 1 tablet by mouth once daily. FLUTICASONE 50 MCG/ACTUATION NASAL S* 1 Hernandez* 0 07/01/2018 Route: EACH NOSTRIL Sig: Use 2 Sprays in each nostril once daily. Rinse mouth after use. Encounter Status:Closed by PRIMO AMIN PA-C on 07/01/18 PROGRESS Observed: 06/16/2018 Status: COMPLETED Source: [place] 4:20 PM [facility] REPOSITORY HNO ID: [id number] Author: Dania (Stabber) Russell Service: (none) Author Type: Nurse Practitioner Type: Progress Notes Filed: 06/16/2018 5:13 PM Note Text: Subjective Jonathan Bates is a 28 year old female who presents with right ear pain today. She has had URI symptoms for the past 3 days. She has taken nothing at home for symptoms. She rates her pain a 7/10. Family members are ill with colds. Review of Systems Constitutional: Negative. Negative for chills and fever. HENT: Positive for congestion, ear pain and hearing loss. Negative for ear discharge and sore throat. Respiratory: Positive for cough. Negative for shortness of breath. Cardiovascular: Negative. Gastrointestinal: Negative. Negative for abdominal pain, diarrhea, nausea and vomiting. Musculoskeletal: Positive for myalgias. Skin: Negative. Negative for rash. BP 104/76 (BP Site: Left Arm, BP Position: Sitting, BP Cuff Size: Regular Adult) Pulse 109 Temp 37.3 ?C (99.2 ?F) (Left Tympanic) Resp 16 Wt 61.3 kg (135 lb 3.2 oz) LMP 01/22/2018 (LMP Unknown) SpO2 98% BMI 26.40 kg/m? PAST MEDICAL HISTORY Diagnosis Date - depression and anxiety - Kidney stones 2017 - Migraine, unspecified, with intractable migraine, so stated, without mention of status migrainosus Migraine - Other dyschromia cafe au lait right pham - PMH - PAST MEDICAL HISTORY OF normal color vision 09/10/2004 - depression - Reactive airway disease childhood PAST SURGICAL HISTORY Procedure Laterality Date - DELIVERY ONLY - DELIVERY ONLY 04/11/2017 - REMOVE TONSILS/ADENOIDS,<12 Y/O 1997 ALLERGIES Patient has no known allergies. MEDICATIONS sertraline (ZOLOFT) 50 mg tablet TAKE ONE TABLET BY MOUTH ONCE DAILY promethazine (PHENERGAN) 12.5 mg tablet Take 1 tablet by mouth every 6 hours as needed. Wyxnmdba-Yb-Iwc-Fe-FA ( VITAMIN) tab Take 1 tablet by mouth. FAMILY HISTORY Problem Relation Age of Onset - No Known Problems Mother - No Known Problems Father - No Known Problems Sister - No Known Problems Sister - Hypertension Brother - Hyperlipidemia Brother - No Known Problems Brother - Heart Maternal Grandmother - Hypertension Maternal Grandmother - Genitourinary () Maternal Grandmother kidney stones - other (glaucoma) Maternal Grandmother - Diabetes Maternal Grandfather - Heart Maternal Grandfather - Hypertension Maternal Grandfather - Emphysema Maternal Grandfather - other (liver problems) Maternal Grandfather - Asthma Paternal Grandmother - Hypertension Paternal Grandfather - No Known Problems Son - No Known Problems Daughter Social History Substance Use Topics - Smoking status: Current Every Day Smoker Years: 6.00 - Smokeless tobacco: Never Used Comment: 2-3 cigarettes a day - Alcohol use Yes Comment: OCCASIONALLY , not while Objective Physical Exam Constitutional: She is well-developed, well-nourished, and in no distress. HENT: Right Ear: External ear and ear canal normal. Tympanic membrane is injected and erythematous. A middle ear effusion is present. Left Ear: Tympanic membrane, external ear and ear canal normal. Nose: Nose normal. No rhinorrhea. Mouth/Throat: Uvula is midline, oropharynx is clear and moist and mucous membranes are normal. No posterior oropharyngeal edema or posterior oropharyngeal erythema. Eyes: Conjunctivae are normal. Neck: Neck supple. Cardiovascular: Normal rate, regular rhythm and normal heart sounds. Pulmonary/Chest: Effort normal and breath sounds normal. No respiratory distress. She has no wheezes. She has no rales. Lymphadenopathy: She has cervical adenopathy. Neurological: She is alert. Skin: Skin is warm and dry. No rash noted. Nursing note and vitals reviewed. ASSESSMENT/PLAN: 1. Other acute nonsuppurative otitis media of right ear, recurrence not specified - ICD9: 381.00, ICD10: H65.191 - Will begin treatment with Amoxicillin for 10 days - Supportive care with plenty of fluids, rest, and analgesia prn. - AMOXICILLIN 875 MG TABLET - Follow-up with your PCP in 3-5 days if symptoms have not improved or sooner if symptoms worsen - Discussed red flags and need for immediate medical evaluation if any occur. - Discussed supportive care treatment with fluids, rest and analgesia. - Discussed expected course of illness Dania Mac APRN.CNP CNOV Observed: 06/16/2018 Status: COMPLETED Source: [place] 4:15 PM [facility] REPOSITORY Office Visit (WSTR) CALOSJONATHAN Kimball ([id number]) 1990 F Date Time Provider Department 06/16/18 4:15 PM DANIA MAC (DIANNE) [facility] During your visit today, we recorded the following information about you: Temperature Pulse Respiration Blood pressure 99.2 degrees 109/minute 16/minute 104/76 Weight 61.3 kg Dania Mac APRN.CNP 06/16/2018 5:13 PM Signed Subjective Jonathan Glasgow Calos is a 28 year old female who presents with right ear pain today. She has had URI symptoms for the past 3 days. She has taken nothing at home for symptoms. She rates her pain a 7/10. Family members are ill with colds. Review of Systems Constitutional: Negative. Negative for chills and fever. HENT: Positive for congestion, ear pain and hearing loss. Negative for ear discharge and sore throat. Respiratory: Positive for cough. Negative for shortness of breath. Cardiovascular: Negative. Gastrointestinal: Negative. Negative for abdominal pain, diarrhea, nausea and vomiting. Musculoskeletal: Positive for myalgias. Skin: Negative. Negative for rash. BP 104/76 (BP Site: Left Arm, BP Position: Sitting, BP Cuff Size: Regular Adult) Pulse 109 Temp 37.3 ?C (99.2 ?F) (Left Tympanic) Resp 16 Wt 61.3 kg (135 lb 3.2 oz) LMP 01/22/2018 (LMP Unknown) SpO2 98% BMI 26.40 kg/m? PAST MEDICAL HISTORY Diagnosis Date - depression and anxiety - Kidney stones 2016 - Migraine, unspecified, with intractable migraine, so stated, without mention of status migrainosus Migraine - Other dyschromia cafe au lait right pham - PMH - PAST MEDICAL HISTORY OF normal color vision 09/10/2004 - depression - Reactive airway disease childhood PAST SURGICAL HISTORY Procedure Laterality Date - DELIVERY ONLY - DELIVERY ONLY 04/11/2017 - REMOVE TONSILS/ADENOIDS,<12 Y/O 1997 ALLERGIES Patient has no known allergies. MEDICATIONS sertraline (ZOLOFT) 50 mg tablet TAKE ONE TABLET BY MOUTH ONCE DAILY promethazine (PHENERGAN) 12.5 mg tablet Take 1 tablet by mouth every 6 hours as needed. Dmovohho-Rs-Khj-Fe-FA ( VITAMIN) tab Take 1 tablet by mouth. FAMILY HISTORY Problem Relation Age of Onset - No Known Problems Mother - No Known Problems Father - No Known Problems Sister - No Known Problems Sister - Hypertension Brother - Hyperlipidemia Brother - No Known Problems Brother - Heart Maternal Grandmother - Hypertension Maternal Grandmother - Genitourinary () Maternal Grandmother kidney stones - other (glaucoma) Maternal Grandmother - Diabetes Maternal Grandfather - Heart Maternal Grandfather - Hypertension Maternal Grandfather - Emphysema Maternal Grandfather - other (liver problems) Maternal Grandfather - Asthma Paternal Grandmother - Hypertension Paternal Grandfather - No Known Problems Son - No Known Problems Daughter Social History Substance Use Topics - Smoking status: Current Every Day Smoker Years: 6.00 - Smokeless tobacco: Never Used Comment: 2-3 cigarettes a day - Alcohol use Yes Comment: OCCASIONALLY , not while Objective Physical Exam Constitutional: She is well-developed, well-nourished, and in no distress. HENT: Right Ear: External ear and ear canal normal. Tympanic membrane is injected and erythematous. A middle ear effusion is present. Left Ear: Tympanic membrane, external ear and ear canal normal. Nose: Nose normal. No rhinorrhea. Mouth/Throat: Uvula is midline, oropharynx is clear and moist and mucous membranes are normal. No posterior oropharyngeal edema or posterior oropharyngeal erythema. Eyes: Conjunctivae are normal. Neck: Neck supple. Cardiovascular: Normal rate, regular rhythm and normal heart sounds. Pulmonary/Chest: Effort normal and breath sounds normal. No respiratory distress. She has no wheezes. She has no rales. Lymphadenopathy: She has cervical adenopathy. Neurological: She is alert. Skin: Skin is warm and dry. No rash noted. Nursing note and vitals reviewed. ASSESSMENT/PLAN: 1. Other acute nonsuppurative otitis media of right ear, recurrence not specified - ICD9: 381.00, ICD10: H65.191 - Will begin treatment with Amoxicillin for 10 days - Supportive care with plenty of fluids, rest, and analgesia prn. - AMOXICILLIN 875 MG TABLET - Follow-up with your PCP in 3-5 days if symptoms have not improved or sooner if symptoms worsen - Discussed red flags and need for immediate medical evaluation if any occur. - Discussed supportive care treatment with fluids, rest and analgesia. - Discussed expected course of illness MARGIE Dumont APRN.CNP 06/16/2018 4:25 PM Signed OTITIS MEDIA GENERAL INFORMATION: Otitis media is an infection of the middle ear. The middle ear sits behind the eardrum. This infection may be caused by a virus or bacteria and often follows a cold. Children often have repeat ear infections. Otitis media is not contagious. INSTRUCTIONS: 1. An antibiotic has been prescribed. It should be taken exactly as prescribed. Do not stop the medicine even if the symptoms go away. 2. Rhyb-cjk-gajsnrb pain medication may be taken or other pain medication as prescribed by the doctor. 3. Nothing should be placed in the ear unless instructed by your doctor. 4. The patient may return to school/daycare or work when the temperature is normal (98.6 F or 37 C). 5. The patient should not swim while the ear is infected. CONTACT YOUR DOCTOR IF YOU OR YOUR CHILD: 1. Does not feel better within 36 hours. 2. Develops a temperature over 102E F (39E C). 3. Starts vomiting or has diarrhea. 4. Develops drainage from the affected ear. 5. Has any new problem that may be related to the medicine prescribed. RETURN TO THE ED IF: 1. You or your child has a severe headache or pain around the ear. 2. You or your child notice swelling around the ear. 3. You or your child has a seizure (convulsion), twitching of the facial muscles, or passes out. 4. You or your child is dizzy, has a stiff neck, or cannot walk or talk normally. 5. Your child becomes more irritable or listless (not interested in his or her surroundings, does not get soothed by you holding him or her). Referring Provider: SELF [[id number]] Allergies As of Date: 06/16/2018 (No Known Allergies) Date Reviewed: 06/16/2018 Reviewed by: Dania (Stabber) Russell Villarreal Assessed Reason for Visit: R ear pain [Other] Cmt: x 4 hr Primary Visit Diagnosis:Other acute nonsuppurative otitis media of right ear, recurrence not specified [H65.191] Order(s):amoxicillin (AMOXIL) 875 mg tabletTake 1 tablet by mouth twice daily for 10 days.Disp: 20 tabletRfl: 0 Prescriptions as of 06/16/2018 Sig: SERTRALINE 50 MG TABLET TAKE ONE TABLET BY MOUTH ONCE* PROMETHAZINE 12.5 MG TABLET Take 1 tablet by mouth every * VITAMIN,CALCIUM,MINE* Take 1 tablet by mouth. AMOXICILLIN 875 MG TABLET Take 1 tablet by mouth twice * Problem List As Of Date 06/16/2018 Noted Resolved Supervision of normal first [Z34.00] INVALID FOR*06/04/2011 Otitis media of left ear [H66.92] INVALID FOR*11/18/2014 Previous delivery affecting *INVALID FOR* More... History of depression [Z86.59] INVALID FOR* More... Patient requested diagnostic testing [Z01.89] INVALID FOR*06/02/2017 More... More... Short interval between pregnancies affecting pr*INVALID FOR* More... Tobacco use during , antepartum [O99.3*INVALID FOR* More... Other instructions from your clinician: OTITIS MEDIA GENERAL INFORMATION: Otitis media is an infection of the middle ear. The middle ear sits behind the eardrum. This infection may be caused by a virus or bacteria and often follows a cold. Children often have repeat ear infections. Otitis media is not contagious. INSTRUCTIONS: 1. An antibiotic has been prescribed. It should be taken exactly as prescribed. Do not stop the medicine even if the symptoms go away. 2. Xhlv-vfj-rudxkmd pain medication may be taken or other pain medication as prescribed by the doctor. 3. Nothing should be placed in the ear unless instructed by your doctor. 4. The patient may return to school/daycare or work when the temperature is normal (98.6 F or 37 C). 5. The patient should not swim while the ear is infected. CONTACT YOUR DOCTOR IF YOU OR YOUR CHILD: 1. Does not feel better within 36 hours. 2. Develops a temperature over 102E F (39E C). 3. Starts vomiting or has diarrhea. 4. Develops drainage from the affected ear. 5. Has any new problem that may be related to the medicine prescribed. RETURN TO THE ED IF: 1. You or your child has a severe headache or pain around the ear. 2. You or your child notice swelling around the ear. 3. You or your child has a seizure (convulsion), twitching of the facial muscles, or passes out. 4. You or your child is dizzy, has a stiff neck, or cannot walk or talk normally. 5. Your child becomes more irritable or listless (not interested in his or her surroundings, does not get soothed by you holding him or her). Prescriptions ordered this encounter Disp Refills Start End AMOXICILLIN 875 MG TABLET 20 t* 0 06/16/2018 06/26/2018 Route: ORAL Sig: Take 1 tablet by mouth twice daily for 10 days. Encounter Status:Closed by DANIA MAC on 06/16/18 PROGRESS Observed: 05/13/2018 Status: COMPLETED Source: [place] 12:57 PM [facility] REPOSITORY O ID: [id number] Author: Luis Grimm Service: (none) Author Type: Lawn Service Worker Type: Progress Notes Filed: 05/13/2018 12:58 PM Note Text: CM - S: Jonathan Bates presents for a routine OB visit at 19w1d. She denies LOF, VB, or regular cramping/contractions. Patient feels rare cramps/Daniel-Escudero contractions. Continues to take Phenergan PRN for n/v of . Patient unsure if she is starting to feel FM yet. Patient also scheduled for 2nd trimester ultrasound today. O: See flow sheet Gen: A+O x 3, NAD Abd: NT x 4 quadrants, S=D Extremities: No edema noted BL in LE A/P: 19w1d IUP. Normal . RTO 4 Weeks for follow up. Call with LOF, VB, DFM or cramping/contractions. 1. Encounter for supervision of other normal in second trimester -PTL precautions and [facility] teaching reviewed - URINE OB DIP B/O 2. 19 weeks gestation of -2nd trimester anatomy ultrasound today - will contact patient with results - URINE OB DIP B/O Luis Grimm APRN.CNM PROGRESS Observed: 05/13/2018 Status: COMPLETED Source: [place] 11:45 AM [facility] REPOSITORY HNO ID: [id number] Author: Chester Herring Service: (none) Author Type: Physician Type: Progress Notes Filed: 05/13/2018 12:05 PM Note Text: E and M note: Jonathan Bates is a pleasant, 28 year old single female, , currently with an Estimated Date of Delivery: 10/06/18, which places her at 19w1d. 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 sertraline (ZOLOFT) 50 mg tablet TAKE ONE TABLET BY MOUTH ONCE DAILY Ttdtdzqp-Vl-Ume-Fe-FA ( VITAMIN) tab Take 1 tablet by mouth. No current facility-administered medications on file prior to visit. SOCIAL HISTORY: Patient is single. She is a smoker smoked. FAMILY HISTORY Problem Relation Age of Onset - No Known Problems Mother - No Known Problems Father - No Known Problems Sister - No Known Problems Sister - Hypertension Brother - Hyperlipidemia Brother - No Known Problems Brother - Heart Maternal Grandmother - Hypertension Maternal Grandmother - Genitourinary () Maternal Grandmother kidney stones - glaucoma [OTHER] Maternal Grandmother - Diabetes Maternal Grandfather - Heart Maternal Grandfather - Hypertension Maternal Grandfather - Emphysema Maternal Grandfather - liver problems [OTHER] Maternal Grandfather - Asthma Paternal Grandmother - Hypertension Paternal Grandfather - No Known Problems Son - No Known Problems Daughter Genetic history is negative for aneuploidy, genetic syndromes, inheritable disorders, and/or inborn errors of metabolism Ultrasound evaluation: A ricci? fetus in utero with symmetric measurements Adequate growth (AGA). Estimated Date of Delivery: 10/06/18 EGA = 19w1d The anatomy appears normal. The neural axis appears normal as well as the anterior abdominal wall. The spine has been visualized in sagittal as well as cross sectional views. The shape of the skull is normal. The cerebellum and the cisterna rosa appear normal. The BPD measures at the 24 th%. The lateral ventricles appear normal. There is no evidence of saavedra bifida and/or anencephaly. There is no evidence of anterior abdominal wall defects (omphalocele and /or gastroschisis) There are no evident malformations and /or effusions. The patient has elevated MSAFP with ONTD risk of 1 in 75 at 2.53 MoM. - The spine appears normal. - There was no evidence of intracranial markers of spina bifida: - The abdominal cord insertion appears normal. - kidneys showed no abnormalities as well. - There is no evidence of maternal ovarian tumors No genetic markers are noted. The differential diagnosis includes: A normal variant A small lesion not visualized by ultrasound Leakage of AFP through a placental tear The amniotic fluid volume is within normal limits. The patient was counseled as to the sonographic findings. The limitations of ultrasound in detecting malformations and chromosomal anomalies has been addressed. Body mass index is 26.8 kg/m?. Discussion regarding therapeutic options: - In light of these reassuring ultrasonographic findings, further investigation for open neural tube defect is unnecessary at this time. Amniocentesis is not generally recommended for those with AFP that is less than 4 MoM especially when there is normal anatomy identified. The patient understands that she may opt for amniocentesis regardless. She was counseled as to the risks of amniocentesis, that the rate of miscarriage associated with amniocentesis is 1:300 to 1:500. All her questions were answered. She declines amniocentesis at this time. - I further explained to the patient that pregnancies complicated with elevated MSAFP are at increased for adverse outcome. Increased morbidity and mortality is usually related to gestational hypertension, preeclampsia, placental abruption/bleeding, growth restriction (IUGR), stillbirth and LBW. NST twice weekly is recommended from 32 weeks onward along with growth assessment by serial ultrasonography. RECOMMENDATIONS: - Invasive testing has been declined - Follow up ultrasound at 28 to 30 weeks to evaluate the growth - NST after 32 weeks - Quit smoking In addition to the time spent performing today's procedure and discussing risk and benefits of the procedure, I evaluated the patient and spent an additional 15 minutes counseling the patient re: testing and management options and answering her questions. My findings and recommendations will be shared via electronic record or fax/mail. MD MONICA Dillard SCRN SECOND Collected: 04/27/2018 Status: F Source: [facility] PATIENTS ONLY 9:29 AM [facility]IC [facility] REPOSITORY TYPE CODE TESTS RESULT OUT OF RANGE REFERENCE UNITS LAB SE1PAP MoM SE1 IONA 0.98 A LAB SE2AFP MoM SE2 AFP 2.53 LAB SE2HCG MoM SE2 hCG 1.16 LAB SE2UE3 MoM SE2 0.88 Unconj uE3 LAB SE2INH MoM SE2 Dimrc 2.78 Inhibin A LAB SE1HCG MoM SE1 hCG 0.97 LAB SE2INT Screen Negative Abnormal SE2 Screen Alert Interp Positive. Increased risk of Neural Tube Defects LAB SE2SDN SE2 Scrn <1:72007 Rsk Dn Synd LAB SE2ADN SE2 Age 1:800 Rsk Dn Snyd LAB SE2STS SE2 Scr 1:6800 Rsk Trsmy 13 LAB SE2STR SE2 Scr <1:42617 Rsk Trsmy18 LAB SE2SON SE2 Scr 1:75 Rsk ONTD LAB SE2RS Seq Scrn View results Second Trim in Scanned Documents link when available. LAB SEQLRV SEQ Staff Reviewed by Review Brandin Joiner MD, PhD ([id number]) Performed By: #### SEQL2 #### [facility] [address], [place] [address] EMERGENCY DEPARTMENT Observed: 04/11/2018 Status: F Source: [place] SUMMARY 3:58 PM [facility] REPOSITORY [facility] Medical Records Department [address] [place] [address] Emergency Department Summary 04/11/18 0717 MR#: [id number] Acct: [id number] Name: JONATHAN BATES Rep #: [id number] : 1990 28 From: Xander Lloyd MD PCP: Care Physician, No Primary Status: DEP ER - ER Visit Summary Date of Service: 04/11/18 Chief Complaint: Bites History of Present Illness: The patient is a 28 F who is 14 weeks . Yesterday, she noted insect bites to her arms and legs. They are itchy, red, swollen, and painful. No fever or systemic symptoms. She tried topical hydrocortisone and Benadryl with minimal relief. She was worried that she might need to try something else for this, and so she came to the ER. Physical Examination: Afebrile. Heart rate 107. Otherwise vitals unremarkable. Patient is alert and oriented. Sitting comfortably. No acute distress. Appears well. HEENT exam including eyes or mucous membranes are unremarkable. Neck normal. Heart regular. Breathing comfortably. Skin shows multiple erythematous patches with a central bite and mild edema. No unusual morphologies, target signs, or other concerning lesions. Nothing to suggest cellulitis or overlying infection. Test Results: None indicated Emergency Department Course and Treatment: Patient has multiple bites over her extremities. Nothing to suggest cellulitis or bacterial infection. No fever or systemic symptoms. At this point, I am recommending symptomatic treatment with Benadryl. We can also add Pepcid for histamine blockage. I will not recommend steroids at this time as she is . These will resolve over time. If they worsen or she has new or concerning symptoms, she should return. Treatment Plan: As above Disposition: Discharged Impression: 1. Insect bites to bilateral arms and bilateral legs This note was generated with [employer] dictation software. It may contain incorrect words, spelling, and punctuation that were not noted in review of the chart prior to signing ED Disposition - Plan for ED Patient: Chief Complaint: Bite Referrals: Care Physician,No Primary [Primary Care Provider] - What to do if you have Problems For any increased pain, shortness of breath, bleeding, nausea or vomiting, chest pain, or any unexpected problems, contact your Primary Care Provider. Call [facility] ([phone]) or report to the closest Emergency Room. Call 911 if necessary. 04/11/181557 <Electronically signed by Xander Lloyd MD> Date Xander Lloyd MD Cosigner Signature (If Indicated): Date CC: No Primary Care Physician DISCHARGE INSTRUCTION Observed: 04/11/2018 Status: F Source: [place] 3:58 PM [facility] REPOSITORY [facility] Medical Records Department [address] [place] [address] Discharge Instruction 04/11/18 0722 MR#: [id number] Acct: [id number] Name: CALOSJONATHAN Myah Rep #: [id number] : 1990 28 From: Xander Lloyd MD PCP: Care Physician, No Primary Status: DEP ER ED Disposition - Plan for ED Patient: Chief Complaint: Bite Instructions: ED Bite Sting Insect Gen Allergic React Prescriptions: DiphenhydrAMINE [Benadryl] 25 mg PO TID PRN PRN 5 Days #15 cap PRN Reason: Itching Famotidine [Pepcid] 20 mg PO BID 5 Days #10 tab Additional Instructions: follow up with your doctor/ob What to do if you have Problems For any increased pain, shortness of breath, bleeding, nausea or vomiting, chest pain, or any unexpected problems, contact your Primary Care Provider. Call [facility] ([phone]) or report to the closest Emergency Room. Call 911 if necessary. 04/11/181557 <Electronically signed by Xander Lloyd MD> Date Xander Lloyd MD Cosigner Signature (If Indicated): Date CC: No Primary Care Physician CBC Collected: 04/02/2018 Status: F Source: [place] 11:02 [facility] REPOSITORY TYPE CODE TESTS RESULT OUT OF REFERENCE UNITS RANGE LAB WBC 3.70-11.00 k/uL WBC High 11.79 LAB RBC 3.90-5.20 m/uL RBC 4.74 LAB HGB 11.5-15.5 g/dL Hemoglobin 14.3 LAB HCT 36.0-46.0 % Hematocrit 44.0 LAB MCV 80.0-100.0 fL MCV 92.8 LAB MCH 26.0-34.0 pG MCH 30.2 LAB MCHC 30.5-36.0 g/dL MCHC 32.5 LAB RDWCV 11.5-15.0 % RDW-CV 13.4 LAB PLTCT 150-400 k/uL Platelet Count 290 LAB MPV 9.0-12.7 fL MPV 10.5 LAB ABSNUC <0.01 k/uL Absolute nRBC <0.01 Performed By: #### CBC, RUBIGG, SYPHGX, SEQL1, HBSAG, HIV12C #### [facility] [address], [place] [address] RUBELLA IGG ANTIBODY Collected: 04/02/2018 Status: F Source: [place] 11:02 [facility] REPOSITORY TYPE CODE TESTS RESULT OUT OF RANGE REFERENCE UNITS LAB RUBGQL Negative Abnormal Rubella IgG Positive Alert Ab, Qual Result Comment: Sample is considered positive for IgG antibodies to rubella virus. A positive result indicates previous exposure to Rubella virus or vaccination. LAB RUBQNT Index Value Rubella IgG Ab 6.69 Result Comment: Index values are interpreted as follows: Negative specimens <0.90 Equivocol specimens 0.90 to 0.99 Positive specimens >0.99 The magnitude of the measured result is not indicative of the amount of antibody present. Performed By: #### CBC, RUBIGG, SYPHGX, SEQL1, HBSAG, HIV12C #### [facility] [address] [place], [place] [address] SYPHILIS IGG WITH Collected: 04/02/2018 Status: F Source: [facility] 11:02 AM [facility] REPOSITORY TYPE CODE TESTS RESULT OUT OF REFERENCE UNITS RANGE LAB SYPHQL Nonreactive Syphilis IgG, Nonreactive Qual Result Comment: In conjunction with this result, the immune status of the patient should be evaluated based on their clinical status, related risk factors, and other diagnostic test results. LAB SYPHLG AI Syphilis IgG <0.2 Result Comment: Antibody index is interpreted as follows: Non reactive SPECIMENS <=0.8 Weak reactive SPECIMENS 0.9 to 5.9 Reactive SPECIMENS >=6.0 Performed By: #### CBC, RUBIGG, SYPHGX, SEQL1, HBSAG, HIV12C #### [facility] [address] [place] [id number] SEQUENT SCRN FIRST Collected: 04/02/2018 Status: F Source: [place] [facility]IENTS ONLY 11:02 AM [facility] REPOSITORY TYPE CODE TESTS RESULT OUT OF REFERENCE UNITS RANGE LAB SE1PAP MoM 1.01 SE1 IONA A LAB SE1HCG MoM 0.98 SE1 hCG LAB SE1INT Final result pending second Final trimester SE1 result pending sample Interp second trimester sample LAB SE1SDN SE1 Scrn 1:4200 Rsk Dn Synd LAB SE1ADN 1:590 SE1 Age Rsk Dn Synd LAB SE1STR SE1 Scr <1:02116 Rsk Trsmy18 LAB SE1ATR SE1 Age 1:2100 Rsk Trsmy18 LAB SE1RS View Seq Scrn results in First Trim Scanned Documents link when available. LAB SEQLRV SEQ Staff Reviewed by Review Brandin Joiner MD, PhD ([id number]) Performed By: #### CBC, RUBIGG, SYPHGX, SEQL1, HBSAG, HIV12C #### [facility] [address] [place], [place] [address] HEPATITIS B SURF. AG Collected: 04/02/2018 Status: F Source: [place] 11:02 AM [facility] REPOSITORY TYPE CODE TESTS RESULT OUT OF REFERENCE UNITS RANGE LAB HBSAG Negative Hepatitis B Negative Surf. Ag Performed By: #### CBC, RUBIGG, SYPHGX, SEQL1, HBSAG, HIV12C #### [place] [id number] [place] [address] HIV 12 COMBO (AG/AB) Collected: 04/02/2018 Status: F Source: [place] 11:02 [facility] REPOSITORY TYPE CODE TESTS RESULT OUT OF REFERENCE UNITS RANGE LAB HVAGAB Non Reactive HIV Non Reactive 12 Ag/Ab Result Comment: (NOTE) HIV Information: [place] Rev. Code 3701.243(E): This information has been disclosed to you from confidential records protected from disclosure by state law. You shall make no further disclosure of this information without the specific, written, and informed release of the individual to whom it pertains, or as otherwise permitted by state law. A general authorization for the release of medical or other information is not sufficient for the purpose of the release of HIV test results or diagnoses. Performed By: #### CBC, RUBIGG, SYPHGX, SEQL1, HBSAG, HIV12C #### [place] [address] TYPE AND SCR,PRENATL Collected: 04/02/2018 Status: F Source: [place] 11:02 [facility] REPOSITORY TYPE CODE TESTS RESULT OUT OF REFERENCE UNITS RANGE LAB %ABR ABO/RH(D) AB POSTIVE LAB % Antibody NEG Screen Performed By: #### TSPN #### [place] [address] CYSTIC FIBROSIS SCR Collected: 04/02/2018 Status: F Source: [place] 11:02 [facility] REPOSITORY TYPE CODE TESTS RESULT OUT OF REFERENCE UNITS RANGE LAB CFNGST CF Mip502 (NOTE) Lesli Report Result Comment: Performing Pathologist: Mi Marina M.D., Ph.D. RESULT: CFTR (RefSeq [id number]): No variant detected INTERPRETATION: The patient does not carry any of the 139 pathogenic genetic variants in the cystic fibrosis transmembrane regulator (CFTR) gene. A negative test result reduces the possibility that this individual is a carrier for cystic fibrosis (CF). However, this test does not detect all variants in the CFTR gene and it is possible that the patient could have a CFTR variant not included in this test. GUIDANCE: Cystic fibrosis (CF) is a multisystem genetic disease of sodium chloride transport that commonly involves the lungs, pancreas, intestines, liver, sweat glands and male reproductive system. CF is one of the most common inherited conditions among Caucasians and is diagnosed in approximately 1 in 3000 individuals in the [place] The condition is less common but occurs in all other racial and ethnic groups. CF has an autosomal recessive inheritance pattern and heterozygous carriers are unaffected. If both partners in a couple have a pathogenic variant, there is a 25% chance for a child to have CF. Genetic test results should be considered in the context of all relevant clinical information including patient phenotype, other laboratory results and family history. Genetic consultation may be beneficial for this individual and the family. Carrier Frequencies: : 1 in 28 Ashkenazi Zoroastrianism: 1 in 29 : 1 in 59 : 1 in 70 : 1 in 84 : 1 in 91 : 1 in 242 METHOD: The Move[employer] Cystic Fibrosis 139-Variant Assay is a qualitative in vitro diagnostic system used to simultaneously detect 139 clinically relevant cystic fibrosis disease-causing mutations and variants of the cystic fibrosis transmembrane conductance regulator (CFTR) gene in genomic DNA isolated from human peripheral whole blood. The variants reported by the [employer] Cystic Fibrosis 139-Variant Assay were specifically chosen because they represent the full set of clinically validated variants classified as CF- causing in the CFTR2 database at [facility], a product of the CFTR2 (Clinical and Functional Translation of CFTR) initiative. Briefly, multiplex short oligonucleotide primers are designed to hybridize to the genomic DNA regions of interests. Followed by primer extension and ligation, the ligation products are multiplex PCR amplified using primers that add index sequences for sample multiplexing, as well as common adapters required for cluster generation and sequencing on the MiSeqDx instrument. The [employer] Business Continuity Coordinator processes base calls generated during primary analysis. Secondary analysis includes demultiplexing, FASTQ file generation, alignment, variant calling, and generation of variant-calling files (VCFs) containing information about CFTR variants found at specific positions in the reference genome. LIMITATIONS: The results should be used and interpreted in the context of a full clinical evaluation. The assay does not include all variants identified in the CFTR gene. Therefore, the failure to identify a variant does not guarantee that other CFTR variants are not present in the samples being analyzed. Variants identified by this assay vary in frequency among different populations. As with any hybridization-based assay, underlying variants in oligonucleotide-binding regions can affect the alleles being probed and, consequently, the calls made. The orientation of the PolyTG/PolyT variant, whether in cis/trans to the R117H variant, cannot be ascertained. PolyTG/PolyT are homopolymeric regions known to be difficult to interpret with sequence-based assays due to polymerase slippage. A 0.9% (4/448) miscall rate is reported for PolyTG/PolyT results. REFERENCES: [employer] Committee on Genetics. ACOG committee opinion No. 486: Update on Carrier Screening for Cystic Fibrosis. Obstet Gynecol. 2011;117(4):1404-7694. Ame JL, Perfecto Tee M, Jaime LESLI, John PM. Cystic Fibrosis: A worldwide analysis of CFTR mutations-correlation with incidence data and application to screening. 2002. Hum Mutat 19:575-606. Dana HAMMER. Cystic fibrosis genetics: from molecular understanding to clinical application. Asha Rev Maryam. 2015;16(1):45-56. John PM, Kwesi BJ, Hieu TB, Ramesh FJ, Diamond C, Dana HAMMER, Marycarmen CO, Patito VA, Maria Del Carmen J, Bela RB, MJ, Alex, III, PW. Guidelines for diagnosis of cystic fibrosis in newborns through older adults: Cystic Fibrosis Foundation consensus report. JPediatr. 2008;153:S4-S14. Radha TENORIO, Dana HAMMER, Catrachito KW, Cheyenne CS, Petey GRADY, Delmer CHEW. Laboratory standards and guidelines for population-based cystic fibrosis carrier screening. Maryam Med 2001;3:149-54. Miranda SM, Claudette JF, Wilfredo DL, Yimi E, Dana HAMMER. CFTR-related disorders. Giuseppe RA, Mikel TC, Leo CR, Geeta Loera, editors. GeneRnessaiews. [place] ([place]): [facility]; 2008. Available at www.ncbi.nlm.nih.gov/books/XNS1890. [Online] Updated Dec 15, 2007. Online Mendelian Inheritance in Man, OMIM. [facility], [place], [place]. Cystic fibrosis transmembrane conductance regulator; CFTR. JE Number: *[id number]: 07/26/2014: World Wide Web URL: http://omim.org/ The Clinical and Functional Translation of CFTR (CFTR2). Available at http://www.cftr2.org/ [Online] MS Petey, Dana GR, Delmer RJ, Werner DA, Catrachito K, Jeannette M, Marisela GE, Santi BW, Pavan VM, Apoorva EM, Martin CM, Cheyenne CS, Pedro DR, Radha WW. Cystic fibrosis population carrier screenin revision of [employer] mutation panel. Maryam Med. 2004;6:387-91. Performed By: #### CFNGS #### [place] [address] [place] [address] PROGRESS Observed: 04/02/2018 Status: COMPLETED Source: [place] 10:46 AM [facility] REPOSITORY HNO ID: [id number] Author: Fercho Rosa Service: (none) Author Type: Physician Type: Progress Notes Filed: 04/02/2018 10:49 AM Note Text: Please see ultrasound report for details of this visit. Fercho Rosa M.D. GC/CHLAMYDIA AMPLIF Collected: 03/20/2018 Status: F Source: [place] 10:28 AM [facility] REPOSITORY TYPE CODE TESTS RESULT OUT OF REFERENCE UNITS RANGE LAB GCCTSR GC/Chlam Amp Cervix Source LAB GCAMPL GC Negative Amplification for Neisseria gonorrhoeae by amplification. LAB CLAMPL Chlamydia Negative Amplif for Chlamydia trachomatis by amplification. Performed By: #### GCCT #### [place] [id number] [place] [id number] CYTOLOGY Observed: 03/20/2018 Status: F Source: [place] 10:28 [facility] REPOSITORY Specimen originated from [facility] Specimen #: [id number] Submitting Physician: PADMINI LOPES MD SPECIMEN SUBMITTED A: CERVICAL, SCREENING, FLUID FINAL DIAGNOSIS A. CERVICAL, SCREENING, FLUID Satisfactory for interpretation. No endocervical component. Negative for intraepithelial lesion or malignancy. Fungal organisms morphologically consistent with Sada species. This specimen has been analyzed by the Upsidep Imaging System, an automated imaging and review system, which assists the laboratory in evaluating cells on ThinPrep Pap tests. Following automated imaging, selected loza from every slide are reviewed by a associate professor of sociology. KING Akhtar(ASCP) (Electronic Signature) CLINICAL DATA ROUTINE EXAM, HPV Testing: Yes, Reflex HPV for ASCUS Date of Last Menstrual Period: 01/22/2018 Menstrual History: STAINS A: CERVICAL, SCREENING, FLUID THIN PREP ACCESS TECH Lidia De La Cruz M.D., Manager Supply Chain Planning Date of Report: 03/30/2018 Date of Procedure: 03/20/2018 Date of Receipt: 03/24/2018 Submitted by: PADMINI LOPES MD Location: [facility] Diagnostic interpretation performed at [facility], [address] [place] [address]. The Pap Smear is a screening test for cervical cancer. False negative results occur with all screening tests, emphasizing the need for rescreening at recommended intervals, and clinical correlation. PROGRESS Observed: 03/20/2018 Status: COMPLETED Source: [place] 10:01 AM [facility] REPOSITORY HNO ID: [id number] Author: Padmini Lopes Service: (none) Author Type: Physician Type: Progress Notes Filed: 03/20/2018 10:35 AM Note Text: INITIAL OB ASSESSMENT OB Provider: Margie Álvarez Ma HPI: Jonathan Bates is a 28 year old female here to establish Obstetrical Care. Patient's last menstrual period was 01/22/2018 (lmp unknown). from OB Dating Form. Cycle length: 30 days Complaints: nausea without vomiting was unplanned but accepted. Obstetric History T2 L2 SAB0 TAB0 Ectopic0 Multiple0 Live Births2 Prior : yes x 2 History of 4th degree laceration: No Patient's Risk Screening for delivery: History of abnormal pap: No Prior treatment for cervical dysplasia: none. History of STDs: None Tobacco use: Yes smoking occasional Caffeine use: No Drug use: No Alcohol use: No Multivitamin with Folic acid: Yes Occupation: [employer] Zoroastrianism or heritage: No Would refuse blood transfusion if medically necessary: No No weight on file for this encounter. Patient BMI over 30? No Marital Status:Committed relationship Partner: Name: Jamison Age: 28 Occupation: [employer] Gender: male History of STDs: None PAST MEDICAL HISTORY Diagnosis Date - depression and anxiety - Kidney stones 2016 - Migraine, unspecified, with intractable migraine, so stated, without mention of status migrainosus Migraine - Other dyschromia cafe [place] lait right pham - PMH - PAST MEDICAL HISTORY OF normal color vision 09/10/2004 - depression - Reactive airway disease childhood PAST SURGICAL HISTORY Procedure Laterality Date - DELIVERY ONLY - DELIVERY ONLY 04/11/2017 - REMOVE TONSILS/ADENOIDS,<12 Y/O 1996 Current Outpatient Prescriptions on File Prior to Visit: SPRINTEC 0.25-35 mg-mcg per tablet TAKE ONE TABLET BY MOUTH ONCE DAILY norgestimate 0.25 mg-ethinyl estradiol 35 mcg (SPRINTEC) 0.25- 35 mg-mcg per tablet Take 1 tablet by mouth once daily. sertraline (ZOLOFT) 50 mg tablet TAKE ONE TABLET BY MOUTH ONCE DAILY oxyCODONE-acetaminophen (PERCOCET) 5-325 mg tablet Take 1 tablet by mouth every 4 hours as needed for Pain. tamsulosin ER (FLOMAX) 0.4 mg cp24 Take 1 capsule by mouth once daily. Olmcxqhr-Vc-Zay-Fe-FA ( VITAMIN) tab Take 1 tablet by mouth. No current facility-administered medications on file prior to visit. Review of Systems: GENERAL: Negative for: Fever or Chills HEENT: Negative for: Headache, Impaired Vision, Ringing in Ears, Nosebleeds NECK: Negative for: Swelling, Pain, Stiffness RESPIRATORY: Negative for: Cough, Shortness of breath, Wheezing GASTROINTESTINAL: Negative for: Heartburn, Constipation, Diarrhea, Blood in stool, Vomiting MUSCULOSKELETAL: Negative for: Muscle or joint pain, stiffness, Joint swelling NEUROLOGIC/PSYCHIATRIC: Negative for: Weakness, Paralysis, Numbness, Tingling, Tremor, Anxiety, Depression, Memory loss SKIN: Negative for: Rash, Itching GENITOURINARY: Negative for: vaginal itching, vaginal discharge, hematuria or dysuria PHYSICAL EXAM: LMP 01/22/2018 GENERAL: pleasant female in no apparent distress DERMATOLOGY: Normal, without lesions, non-icteric and non-hirsute NECK: Supple, full range of motion, no adenopathy and thyroid normal BREAST: soft, non-tender, symmetric, no dominant mass, normal nipple-areolar complex, no lymphadenopathy and no nipple discharge ABDOMEN: soft, non-tender and no masses NEURO: alert and oriented x3,exam grossly non-focal PELVIS: External genitalia normal without lesions. Perineal body intact. No vaginal or cervical lesions. Cervix closed. Uterus 11 week size. No adnexal masses or tenderness. Clinical Pelvimetry: Pelvimetry clinically assessed as adequate Limited OB ultrasound exam: single intrauterine and positive cardiac activity ASSESSMENT: 28 year old at 11.3 wks gestational age PLAN: 1) Patient oriented to practice. Discussed nutrition, folic acid supplementation, dietary guidelines, exercise, smoking, alcohol, caffeine, and drug use. Discussed routine OB labs including STD/HIV. Discussed aneuploidy screening options including serum screening and nuchal translucency. 2) h/o GHTN- baby ASA reviewed 3) CF testing requested Follow up in 4 weeks or sooner prn. Padmini Lynch MD TOXICOLOGY SCREEN,UR Collected: 03/20/2018 Status: F Source: [place] 10:01 AM [facility] REPOSITORY TYPE CODE TESTS RESULT OUT OF REFERENCE UNITS RANGE LAB UPCP2 Negative Negative Phencyclidin e, Urine Result Comment: Cutoff threshold at 25 ng/mL. LAB UBENZ2 Negative Benzodiazepines, Ur Negative Result Comment: Cutoff threshold at 200 ng/mL. LAB UCOC2 Negative Cocaine, Negative Urine Result Comment: Cutoff threshold at 300 ng/mL. LAB UAMPH2 Negative Amphetamines, Urine Negative Result Comment: Cutoff threshold at 1000 ng/mL. LAB UTHC2 Negative Cannabinoids, Abnormal Urine Preliminary Alert positive. Result Comment: Cutoff threshold at 50 ng/mL. LAB UOPI2 Negative Opiates, Negative Urine Result Comment: Cutoff threshold at 300 ng/mL. LAB UBARB2 Negative Barbiturates, Urine Negative Result Comment: Cutoff threshold at 200 ng/mL. LAB UETOH <11 mg/dL <11 Ethanol, Urine LAB UOXYC Negative Oxycodone, Negative Urine Result Comment: Cutoff threshold at 100 ng/mL. Comment: Immunoassay screen only. Cross reactivity with other substances can occur with immunoassay screening. Detection of any drug(s) in this urine toxicology panel is presumptive only. These tests are for med ical purposes only and should not be used for compliance monitoring, legal, or forensic use. In clinical settings, confirmatory testing is at the practitioner's discretion [1]. If clinically indicated, confirmation by high specificity, quantitative methodology may be requested on the same speci men through Client Services ([phone]) if contacted within 48 hours of initial testing. [1]Substance Abuse and Mental Health Services Administration (2012). Clinical Drug Testing in Primary Care Technical Assistance Publication Series 32. Department of Health and Human Services, [place], p.10. These tests were developed and their performance characteristics determined by [facility]'s [facility]ology [facility] [place] ([facility]). They have not been cleared or a pproved by the FDA. [facility] is regulated under CLIA as qualified to perform high complexity testing. These tests are used for clinical purposes. They should not be regarded as investigational or for research. Performed By: #### UTOX2 #### [facility] [address], [place] [address] Observed: 03/20/2018 Status: F Source: [place] URINE CULTURE 10:01 AM [facility] REPOSITORY Sp. Request/Comment: - Best Practice Alert: To ensure optimal transport conditions and accurate culture results transfer urine specimens to varner top C and S preservative tube. Culture Result - No growth (<1,000 CFU/ml) Performed By: #### URCUL #### [place] [address] [place], [place] [address] PROGRESS Observed: 03/19/2018 Status: COMPLETED Source: [place] 2:59 PM [facility] REPOSITORY HNO ID: [id number] Author: Katherine Barros RN Service: (none) Author Type: (none) Type: Progress Notes Filed: 03/19/2018 3:58 PM Note Text: #: 1, Date: 01[birth year], Sex: Male, Weight: 7 lb 11 oz (3.487 kg), GA: 39w3d, Delivery: SECTION, Apgar1: None, Apgar5: None, Living: Living, Comments: None #: 2, Date: 04/11/17, Sex: Female, Weight: 7 lb 3 oz (3.26 kg), GA: 39w0d, Delivery: , Low Transverse, Apgar1: 8, Apgar5: 9, Living: Living, Comments: kidney stones at 36 weeks, RC/S EBL 800cc #: 3, Date: None, Sex: None, Weight: None, GA: None, Delivery: None, Apgar1: None, Apgar5: None, Living: None, Comments: None CNNURSE Observed: 03/19/2018 Status: COMPLETED Source: [place] 2:30 PM [facility] REPOSITORY Nurse Visit (WOOB) JONATHAN BATES ([id number]) 1990 F Date Time Provider Department 03/19/18 2:30 PM NURSE [facility] W[facility] WOOB During your visit today, we recorded the following information about you: Last Period 01/22/18 Katherine Barros RN 03/19/2018 2:50 PM Signed SEQUENTIAL SCREENINGS The [facility] offers sequential screenings for women who are interested in screenings for chromosomal abnormalities and certain defects during a . The sequential screen combines ultrasound and blood tests to determine the risk of chromosomal abnormalities, including Down's Syndrome (Trisomy 21) and Trisomy 18, as well as open neural tube defects including spina bifida. Ultrasound examination is performed between 11 weeks and 13 weeks gestational age. Blood tests are drawn after the ultrasound and again later in the between 15 and 21 weeks gestational age. Please let your physician know if you are interested in this testing. It will require an appointment with our water restoration technician. This is not an ultrasound performed by a physician in our office during a routine visit. SIGNS AND SYMPTOMS OF LABOR 1. Contractions every 10 minutes or more often 2. Clear, pink, or brownish fluid (water) leaking from vagina 3. Feeling that baby is pushing down, pressure 4. Low, dull backache 5. Cramps that feel like a period 6. Cramps with or without diarrhea If you notice any of the above symptoms, contact our office at [phone] and ask to speak with a nurse. After hours, you can call doctors registry at [phone] OR call [facility] at [phone] and ask to have the doctor adoption coordinator paged. If you consider this an emergency, dial 9-1-1 or go to your nearest emergency department. Cord-Blood Banking Up until recently, the umbilical cord--along with the blood that remained in it after a baby was born and the cord cut--was simply discarded by the hospital. Then, in the late , researchers discovered that cord blood possessed unusual properties that made it useful in the treatment of patients with some cancers and other illnesses. While the actual process of collecting cord blood is straightforward, many parents are not even aware that this option now exists, much less familiar with all the issues involved. The case for saving your baby's cord blood The blood running back and forth between your baby and the placenta is full of immature cells called stem cells. Unlike embryonic stem cells, which have the ability to develop into any type of body cell, cord-blood stem cells already are locked into a certain, vital function: making all the different components of the blood, such as platelets, white blood cells, and red blood cells-serving, in effect, like bone marrow. When transfused into a patient whose own blood cells have faulty genetic coding or have been destroyed by chemotherapy or other cancer treatments, the cord-blood cells can implant themselves in the bone marrow and generate legions of new, healthy cells. These days, cord-blood transplants most commonly are used in cancer patients when a donor can't be found for a bone-marrow transplant. The treatment is particularly effective in young patients-the [facility] Cord Blood Bank reports a 70 percent success rate in children, but only 20 to 40 percent in adults. Researchers envision improving those odds and see many future applications as well, such as curing sickle cell disease and other blood-related genetic illnesses. So there is a possibility that your child, or someone else, may need these super-healthy and versatile cells one day. The drawbacks Aside from not knowing about this medical option, the main reason most people do not save their baby's stem cells is cost. In a private blood bank, the initial costs run from $275 to $1,500. Most also charge a yearly storage fee of $50 to $95. The advantage of using a private bank is that your sample is saved for only you to use. An alternative to private banking Public cord-blood shipley are an alternative. These cost no money to use, but your sample is not specifically saved for you. Another person with a more immediate need may use it. If the time should come that you need stem cells, yours may still be available, or you may use donations from other people without charge. You also can direct your sample to go to a relative with an immediate need if the blood type matches. Anyone else needing to use stem cells from a public bank who has not been a donor must pay for it, sometimes tens of thousands of dollars. Will my family benefit from saving stem cells? Right now, situations in which stem cells would be helpful are quite rare. As mentioned earlier, stem-cell transplants are most commonly used for rare genetic conditions and for some types of cancer, including leukemia and lymphoma. And even with these present uses, many questions remain. In cancer treatment, for example, some researchers are concerned about the wisdom of transplanting back into the child the same cells that already showed a propensity to become malignant. Doctors also aren't sure if the number of cells taken at the time of would be enough to treat a full-grown 16-year-old. It is also not completely clear how active the cells would be after years of being stored. The treatment is so new and rare, we just don't have the data yet to resolve these important issues. What do the experts say? The [employer] encourages philanthropic blood banking in public shipley, but only for families with a current or potential need. Blood-bank proponents encourage any kind of banking, pointing out that research is getting closer and closer to many diverse, live-saving applications. How do I decide? Each family must weigh the pros and cons for themselves. Some families say that any cost is worth their peace of mind. Others say that in the face of uncertainty about the effectiveness of the treatment, they will use their resources elsewhere. Some choose the middle ground of donating publicly, knowing that their sample might benefit another family, if not themselves. For more information, ask your doctor or nurse, and be sure to check out our article on the technical aspects of cord-blood banking. Technical Aspects of Cord-Blood Banking If you are interested in storing your baby's umbilical-cord blood because of its possible use in emerging medical treatments, you must make arrangements with a blood bank before your child is born. The collection procedure is quite simple: After delivery of the baby, the umbilical cord is clamped and cut in the usual way. The blood that remains in the umbilical-cord vessels is then collected in sterile containers. The blood may be removed from the cord with a large needle or allowed to flow freely, depending on the company's collection system. The containers may look like large test tubes or like the plastic bags used in a blood bank. It does not cause the mother or the baby any pain to collect the blood, and no blood is taken that the baby needs at the moment. The nurse, pediatrician active practice, or physician will then label the samples, check them over with you, and package them for a special pickup arranged with a commercial carrier. When the blood arrives at the blood-bank facility, it is processed and the parents are notified. It is then kept in an advanced storage system for years. How do I know that my sample is safe? Power outages and bankruptcies potentially could threaten any organization, but so far none have been reported. It is to be hoped that the scientists in these shipley would arrange for safe transfer to another facility if the need arose. YOU MUST MAKE ARRANGEMENTS AHEAD OF TIME! Public cord-blood shipley--DONATION: [employer] [phone] [facility]'s Placental Blood Program, [facility] Umbilical Cord Blood Bank, Private cord-blood shipley--SAVING FOR YOUR OWN USE: [employer], (I think this is the least expensive) [employer] [phone] [employer], [phone]) [employer] [place] [facility], [phone], [phone] [place] [facility], Cord Blood Registry, [phone]) [employer], An Internet search may provide you with additional listings. Katherine Barros RN 03/19/2018 3:58 PM Signed #: 1, Date: [birth year], Sex: Male, Weight: 7 lb 11 oz (3.487 kg), GA: 39w3d, Delivery: SECTION, Apgar1: None, Apgar5: None, Living: Living, Comments: None #: 2, Date: 04/11/17, Sex: Female, Weight: 7 lb 3 oz (3.26 kg), GA: 39w0d, Delivery: , Low Transverse, Apgar1: 8, Apgar5: 9, Living: Living, Comments: kidney stones at 36 weeks, RC/S EBL 800cc #: 3, Date: None, Sex: None, Weight: None, GA: None, Delivery: None, Apgar1: None, Apgar5: None, Living: None, Comments: None Referring Provider: SELF [200] Allergies As of Date: 03/19/2018 (No Known Allergies) Date Reviewed: 03/19/2018 Reviewed by: Katherine Barros RN - Fully Assessed Reason for Visit: Care [86] Cmt: Pre-New OB Primary Visit Diagnosis:Previous delivery affecting [O34.219] Other Visit Diagnoses:Short interval between pregnancies affecting , antepartum [O09.899] Tobacco use during , antepartum [O99.330] History of depression [Z86.59] Patient requested diagnostic testing [Z01.89] Prescriptions as of 03/19/2018 Sig: SERTRALINE 50 MG TABLET TAKE ONE TABLET BY MOUTH ONCE* SPRINTEC (28) 0.25 MG-35 MCG * TAKE ONE TABLET BY MOUTH ONCE* Patient not taking: Reported on 03/19/2018 NORGESTIMATE 0.25 MG-ETHINYL * Take 1 tablet by mouth once d* Patient not taking: Reported on 03/19/2018 OXYCODONE-ACETAMINOPHEN 5 MG-* Take 1 tablet by mouth every * TAMSULOSIN 0.4 MG CAPSULE Take 1 capsule by mouth once * VITAMIN,CALCIUM,MINE* Take 1 tablet by mouth. Problem List As Of Date 03/19/2018 Noted Resolved Supervision of normal first [Z34.00] INVALID FOR*06/04/2011 Otitis media of left ear [H66.92] INVALID FOR*11/18/2014 Previous delivery affecting *INVALID FOR* More... History of depression [Z86.59] INVALID FOR* More... Patient requested diagnostic testing [Z01.89] INVALID FOR*06/02/2017 More... More... Short interval between pregnancies affecting pr*INVALID FOR* More... Tobacco use during , antepartum [O99.3*INVALID FOR* More... Other instructions from your clinician: SEQUENTIAL SCREENINGS The [facility] offers sequential screenings for women who are interested in screenings for chromosomal abnormalities and certain defects during a . The sequential screen combines ultrasound and blood tests to determine the risk of chromosomal abnormalities, including Down's Syndrome (Trisomy 21) and Trisomy 18, as well as open neural tube defects including spina bifida. Ultrasound examination is performed between 11 weeks and 13 weeks gestational age. Blood tests are drawn after the ultrasound and again later in the between 15 and 21 weeks gestational age. Please let your physician know if you are interested in this testing. It will require an appointment with our water restoration technician. This is not an ultrasound performed by a physician in our office during a routine visit. SIGNS AND SYMPTOMS OF LABOR 1. Contractions every 10 minutes or more often 2. Clear, pink, or brownish fluid (water) leaking from vagina 3. Feeling that baby is pushing down, pressure 4. Low, dull backache 5. Cramps that feel like a period 6. Cramps with or without diarrhea If you notice any of the above symptoms, contact our office at [phone] and ask to speak with a nurse. After hours, you can call doctors registry at [phone] OR call [facility] at [phone] and ask to have the doctor adoption coordinator paged. If you consider this an emergency, dial 9-1-1 or go to your nearest emergency department. Cord-Blood Banking Up until recently, the umbilical cord--along with the blood that remained in it after a baby was born and the cord cut--was simply discarded by the hospital. Then, in the late 1980s, researchers discovered that cord blood possessed unusual properties that made it useful in the treatment of patients with some cancers and other illnesses. While the actual process of collecting cord blood is straightforward, many parents are not even aware that this option now exists, much less familiar with all the issues involved. The case for saving your baby's cord blood The blood running back and forth between your baby and the placenta is full of immature cells called stem cells. Unlike embryonic stem cells, which have the ability to develop into any type of body cell, cord-blood stem cells already are locked into a certain, vital function: making all the different components of the blood, such as platelets, white blood cells, and red blood cells-serving, in effect, like bone marrow. When transfused into a patient whose own blood cells have faulty genetic coding or have been destroyed by chemotherapy or other cancer treatments, the cord-blood cells can implant themselves in the bone marrow and generate legions of new, healthy cells. These days, cord-blood transplants most commonly are used in cancer patients when a donor can't be found for a bone-marrow transplant. The treatment is particularly effective in young patients- the [facility] Cord Blood Bank reports a 70 percent success rate in children, but only 20 to 40 percent in adults. Researchers envision improving those odds and see many future applications as well, such as curing sickle cell disease and other blood-related genetic illnesses. So there is a possibility that your child, or someone else, may need these super-healthy and versatile cells one day. The drawbacks Aside from not knowing about this medical option, the main reason most people do not save their baby's stem cells is cost. In a private blood bank, the initial costs run from $275 to $1,500. Most also charge a yearly storage fee of $50 to $95. The advantage of using a private bank is that your sample is saved for only you to use. An alternative to private banking Public cord-blood shipley are an alternative. These cost no money to use, but your sample is not specifically saved for you. Another person with a more immediate need may use it. If the time should come that you need stem cells, yours may still be available, or you may use donations from other people without charge. You also can direct your sample to go to a relative with an immediate need if the blood type matches. Anyone else needing to use stem cells from a public bank who has not been a donor must pay for it, sometimes tens of thousands of dollars. Will my family benefit from saving stem cells? Right now, situations in which stem cells would be helpful are quite rare. As mentioned earlier, stem-cell transplants are most commonly used for rare genetic conditions and for some types of cancer, including leukemia and lymphoma. And even with these present uses, many questions remain. In cancer treatment, for example, some researchers are concerned about the wisdom of transplanting back into the child the same cells that already showed a propensity to become malignant. Doctors also aren't sure if the number of cells taken at the time of would be enough to treat a full-grown 16-year-old. It is also not completely clear how active the cells would be after years of being stored. The treatment is so new and rare, we just don't have the data yet to resolve these important issues. What do the experts say? The [employer] encourages philanthropic blood banking in public shipley, but only for families with a current or potential need. Blood-bank proponents encourage any kind of banking, pointing out that research is getting closer and closer to many diverse, live-saving applications. How do I decide? Each family must weigh the pros and cons for themselves. Some families say that any cost is worth their peace of mind. Others say that in the face of uncertainty about the effectiveness of the treatment, they will use their resources elsewhere. Some choose the middle ground of donating publicly, knowing that their sample might benefit another family, if not themselves. For more information, ask your doctor or nurse, and be sure to check out our article on the technical aspects of cord-blood banking. Technical Aspects of Cord-Blood Banking If you are interested in storing your baby's umbilical- cord blood because of its possible use in emerging medical treatments, you must make arrangements with a blood bank before your child is born. The collection procedure is quite simple: After delivery of the baby, the umbilical cord is clamped and cut in the usual way. The blood that remains in the umbilical-cord vessels is then collected in sterile containers. The blood may be removed from the cord with a large needle or allowed to flow freely, depending on the company's collection system. The containers may look like large test tubes or like the plastic bags used in a blood bank. It does not cause the mother or the baby any pain to collect the blood, and no blood is taken that the baby needs at the moment. The nurse, pediatrician active practice, or physician will then label the samples, check them over with you, and package them for a special pickup arranged with a commercial carrier. When the blood arrives at the blood- bank facility, it is processed and the parents are notified. It is then kept in an advanced storage system for years. How do I know that my sample is safe? Power outages and bankruptcies potentially could threaten any organization, but so far none have been reported. It is to be hoped that the scientists in these shipley would arrange for safe transfer to another facility if the need arose. YOU MUST MAKE ARRANGEMENTS AHEAD OF TIME! Public cord-blood shipley--DONATION: [employer] [phone] [facility]'s Placental Blood Program, [facility] Umbilical Cord Blood [facility], Private cord-blood shipley--SAVING FOR YOUR OWN USE: [employer], (I think this is the least expensive) [employer] [phone] [employer], ([phone]) [employer] [place] Cord Blood [facility], [phone] Cells, [phone] [place] [facility], Cord Blood Registry, [phone]) CORDBLOOD [employer], An Internet search may provide you with additional listings. Disposition: Return in 1 day (on 03/20/2018) for New OB with Dr Loeps. Follow-up and Disposition History Recorded Encounter Status:Closed by KATHERINE BARROS RN on 03/19/18 WOUND Observed: 11/05/2017 Status: F Source: [place] CULTURE/STAIN 9:51 PM [facility] REPOSITORY Smear Result - BACTERIAL VAGINOSIS RESULT: Stain results indicate mixed morphotypes consistent with transition from normal vaginal fernando. Rare Polymorphonuclear leukocytes Moderate Epithelial cells CAND ROMARIO SPECIES RESULT: No Yeast observed Culture Result - Moderate Escherichia coli --> ABNORMAL ALERT Few --> ABNORMAL ALERT Sada albicans --> ABNORMAL ALERT Many Normal vaginal fernando No Staphylococcus aureus isolated. No Beta Str eptococcus species isolated. No Neisseria gonorrhoeae isolated. For optimal sensitivity, testing for Neisseria gonorrhoeae should be performed by molecular methods. ORGANISM: Escherichia coli METHOD: Minimum inhibitory concentration(Vitek) Antibiotic Interp HECTOR Status Ampicillin RESISTANT F Gentamicin SUSCEPTIBLE <=1 F Trimeth sulfameth SUSCEPTIBLE <=20 F Ciprofloxacin SUSCEPTIBLE <=0.25 F Piperacillin/Tazobac SUSCEPTIBLE <=4 F Ampicillin Sulbact SUSCEPTIBLE 4 F Ceftriaxone SUSCEPTIBLE <=1 F Meropenem SUSCEPTIBLE <=0.25 F Ertapenem SUSCEPTIBLE <=0.5 F Performed By: #### WCUL #### [facility] [address] [place], [place] [address] PROGRESS Observed: 11/05/2017 Status: COMPLETED Source: [place] 11:21 AM [facility] REPOSITORY HNO ID: [id number] Author: Padmini Lopes Service: (none) Author Type: Physician Type: Progress Notes Filed: 11/05/2017 11:47 AM Note Text: Jonathan Bates is a 27 year old female who presents for concerns regarding strong fould vaginal odor x 1 month. Pt denies itching, burning, discharge, concerns for STDs, fever, pelvic pain, or changes in soaps or detergents. Pt reports odor is not fishy in nature but just foul- reports she can smell it all the time and is embarrassed with it. Pt reports normal menses. PAST MEDICAL HISTORY Diagnosis Date - depression and anxiety - Migraine, unspecified, with intractable migraine, so stated, without mention of status migrainosus Migraine - Other dyschromia cafe au lait right pham - PMH - PAST MEDICAL HISTORY OF normal color vision 09/10/2004 - depression - Reactive airway disease childhood PAST SURGICAL HISTORY Procedure Laterality Date - DELIVERY ONLY - DELIVERY ONLY 04/11/2017 - REMOVE TONSILS/ADENOIDS,<12 Y/O 1997 FAMILY HISTORY Problem Relation Age of Onset - Heart Maternal Grandmother - Hypertension Maternal Grandmother - Genitourinary () Maternal Grandmother kidney stones - glaucoma [OTHER] Maternal Grandmother - Diabetes Maternal Grandfather - Heart Maternal Grandfather - Hypertension Maternal Grandfather - Emphysema Maternal Grandfather - liver problems [OTHER] Maternal Grandfather - Asthma Paternal Grandmother - Hypertension Paternal Grandfather Social History Marital status: Single Spouse name: Years of education: 12 Number of children: 1 Occupational History Occupation Employer Comment [employer] Social History Main Topics Smoking status: Former Smoker Packs/day: 0.00 Years: 2.00 Smokeless status: Former User Quit date: 09/12/2015 Comment: previous social smoker Alcohol use: Yes Comment: OCCASIONALLY , not while Drug use: No Sexual activity: Yes Partners with: Male control/protection: Pill Current Outpatient Prescriptions: norgestimate 0.25 mg-ethinyl estradiol 35 mcg (SPRINTEC) 0.25- 35 mg-mcg per tablet Take 1 tablet by mouth once daily. sertraline (ZOLOFT) 50 mg tablet TAKE ONE TABLET BY MOUTH ONCE DAILY SPRINTEC 0.25-35 mg-mcg per tablet TAKE ONE TABLET BY MOUTH ONCE DAILY oxyCODONE-acetaminophen (PERCOCET) 5-325 mg tablet Take 1 tablet by mouth every 4 hours as needed for Pain. tamsulosin ER (FLOMAX) 0.4 mg cp24 Take 1 capsule by mouth once daily. Krusuyuv-Sa-Jbd-Fe-FA ( VITAMIN) tab Take 1 tablet by mouth. No current facility-administered medications for this visit. Allergies As of Date: 11/05/2017 (No Known Allergies) Fully Assessed 11/05/2017 REVIEW OF SYSTEMS Abdomen: No abdominal pain, nausea, vomiting, diarrhea, or constipation. Bladder: No dysuria, gross hematuria, urinary frequency, urinary urgency, or incontinence. . Expanded ROS: GENERAL: No weight loss, malaise or fevers Allergies and current medication updated:Yes EXAM: BP 120/80 Wt 149 lb (67.6kg) LMP 10/20/2017 GENERAL: pleasant, female in no apparent distress HEENT: Normocephalic, atraumatic, mucus membranes moist and no lesions NECK: full range of motion DERMATOLOGY: Normal, without lesions, non-icteric and non-hirsute PELVIC: external genitalia normal, normal Bartholin's glands, urethra, Golf's glands, no vulvar lesions, no cervical lesions, good vaginal support, physiologic discharge present, normal appearing perineal body and perianal region. No abnormal odor appreciated. NEURO: alert and oriented x3,exam grossly non-focal EXTREMITIES: normal ASSESSMENT AND PLAN: 27yo with Vaginal odor 1) vaginal culture done 2) vaginal hygiene reviewed 3) consider flagyl if persistent But at this time reassurance given. 4) RTO PRN Padmini Lynch MD CNOV Observed: 11/05/2017 Status: COMPLETED Source: [place] 11:20 AM [facility] REPOSITORY Office Visit (WOOB) JONATHAN BATES ([id number]) 1990 F Date Time Provider Department 11/05/17 11:20 AM PADMINI CORONADO During your visit today, we recorded the following information about you: Blood pressure Weight Last Period 120/80 67.6 kg 10/20/17 Padmini Lynch MD 11/05/2017 11:47 AM Signed Jonathan Bates is a 27 year old female who presents for concerns regarding strong fould vaginal odor x 1 month. Pt denies itching, burning, discharge, concerns for STDs, fever, pelvic pain, or changes in soaps or detergents. Pt reports odor is not fishy in nature but just foul- reports she can smell it all the time and is embarrassed with it. Pt reports normal menses. PAST MEDICAL HISTORY Diagnosis Date - depression and anxiety - Migraine, unspecified, with intractable migraine, so stated, without mention of status migrainosus Migraine - Other dyschromia cafe au lait right pham - PMH - PAST MEDICAL HISTORY OF normal color vision 09/10/2004 - depression - Reactive airway disease childhood PAST SURGICAL HISTORY Procedure Laterality Date - DELIVERY ONLY - DELIVERY ONLY 04/11/2017 - REMOVE TONSILS/ADENOIDS,ANDlt;11 Y/O 1996 FAMILY HISTORY Problem Relation Age of Onset - Heart Maternal Grandmother - Hypertension Maternal Grandmother - Genitourinary () Maternal Grandmother kidney stones - glaucoma [OTHER] Maternal Grandmother - Diabetes Maternal Grandfather - Heart Maternal Grandfather - Hypertension Maternal Grandfather - Emphysema Maternal Grandfather - liver problems [OTHER] Maternal Grandfather - Asthma Paternal Grandmother - Hypertension Paternal Grandfather Social History Marital status: Single Spouse name: Years of education: 12 Number of children: 1 Occupational History Occupation Employer Comment [employer] Social History Main Topics Smoking status: Former Smoker Packs/day: 0.00 Years: 2.00 Smokeless status: Former User Quit date: 09/12/2015 Comment: previous social smoker Alcohol use: Yes Comment: OCCASIONALLY , not while Drug use: No Sexual activity: Yes Partners with: Male control/protection: Pill Current Outpatient Prescriptions: norgestimate 0.25 mg-ethinyl estradiol 35 mcg (SPRINTEC) 0.25- 35 mg-mcg per tablet Take 1 tablet by mouth once daily. sertraline (ZOLOFT) 50 mg tablet TAKE ONE TABLET BY MOUTH ONCE DAILY SPRINTEC 0.25-35 mg-mcg per tablet TAKE ONE TABLET BY MOUTH ONCE DAILY oxyCODONE-acetaminophen (PERCOCET) 5-325 mg tablet Take 1 tablet by mouth every 4 hours as needed for Pain. tamsulosin ER (FLOMAX) 0.4 mg cp24 Take 1 capsule by mouth once daily. Hdulvqzt-Zj-Dnp-Fe-FA ( VITAMIN) tab Take 1 tablet by mouth. No current facility-administered medications for this visit. Allergies As of Date: 11/05/2017 (No Known Allergies) Fully Assessed 11/05/2017 REVIEW OF SYSTEMS Abdomen: No abdominal pain, nausea, vomiting, diarrhea, or constipation. Bladder: No dysuria, gross hematuria, urinary frequency, urinary urgency, or incontinence. . Expanded ROS: GENERAL: No weight loss, malaise or fevers Allergies and current medication updated:Yes EXAM: BP 120/80 Wt 149 lb (67.6kg) LMP 10/20/2017 GENERAL: pleasant, female in no apparent distress HEENT: Normocephalic, atraumatic, mucus membranes moist and no lesions NECK: full range of motion DERMATOLOGY: Normal, without lesions, non-icteric and non-hirsute PELVIC: external genitalia normal, normal Bartholin's glands, urethra, Golf's glands, no vulvar lesions, no cervical lesions, good vaginal support, physiologic discharge present, normal appearing perineal body and perianal region. No abnormal odor appreciated. NEURO: alert and oriented x3,exam grossly non-focal EXTREMITIES: normal ASSESSMENT AND PLAN: 27yo with Vaginal odor 1) vaginal culture done 2) vaginal hygiene reviewed 3) consider flagyl if persistent But at this time reassurance given. 4) RTO PRN Padmini Lynch MD Referring Provider: SELF [200] Allergies As of Date: 11/05/2017 (No Known Allergies) Date Reviewed: 11/05/2017 Reviewed by: Cheyenne Gray Ma - Fully Assessed Reason for Visit: Vaginal Problem [117] Primary Visit Diagnosis:Vaginal odor [N89.8] Order(s):WOUND CULTURE AND GRAM STAIN [SQWCUL] Order #: [id number] Prescriptions as of 11/05/2017 Sig: NORGESTIMATE 0.25 MG-ETHINYL * Take 1 tablet by mouth once d* SERTRALINE 50 MG TABLET TAKE ONE TABLET BY MOUTH ONCE* SPRINTEC (28) 0.25 MG-35 MCG * TAKE ONE TABLET BY MOUTH ONCE* OXYCODONE-ACETAMINOPHEN 5 MG-* Take 1 tablet by mouth every * TAMSULOSIN 0.4 MG CAPSULE Take 1 capsule by mouth once * VITAMIN,CALCIUM,MINE* Take 1 tablet by mouth. Problem List As Of Date 11/05/2017 Noted Resolved Supervision of normal first [Z34.00] INVALID FOR*06/04/2011 Otitis media of left ear [H66.92] INVALID FOR*11/18/2014 History of delivery, currently pregnan*INVALID FOR*06/02/2017 More... History of depression [Z86.59] INVALID FOR* More... Patient requested diagnostic testing [Z01.89] INVALID FOR*06/02/2017 More... More... Encounter Status:Closed by PADMINI OLPES MD on 11/05/17 ALLERGIES ALLERGIES DATE TYPE / CODE NAME / CODE REACTION SEVERITY SOURCE 09/22/2018 Drug No Known Unknown [facility] Allergy/416 Allergies/G67613 Hospital 997767(SNOM 0388(RXNORM) Repository ED CT) Drug NO KNOWN [facility] Class/43861 ALLERGIES [place] 1003(SNOMED Repository CT) ENCOUNTERS ENCOUNTERS ADMIT/DISCHARGE ACCOUNT ADMITTING ENCOUNTER LOCATION SOURCE NUMBER CLASS 10/13/2018/10/13/20 [id number] Ambulatory [address] Repository 10/05/2018/10/05/20 [id number] Ambulatory [address] Repository 10/01/2018/10/03/20 [id number] Ambulatory [facility]ast[facility] [place] [address] [place] [address] ing:WPOUTRoom Repository : [id number] 10/01/2018/10/02/20 [id number] Ambulatory [address] [place] Repository 09/29/2018 [id number] [facility] Ambulatory [facility] ing:WP Repository 09/24/2018/09/27/20 [id number] Bonifacio Short Inpatient [address] ing:WPRoom: Repository [id number]: 1 09/22/2018/09/23/20 [id number] Ambulatory [address] [place] Repository 09/15/2018/09/16/20 [id number] Ambulatory [address] [place] Repository 09/09/2018/09/10/20 [id number] Ambulatory [place] [facility] [place] Repository 08/26/2018/08/27/20 [id number] Ambulatory [place] [facility] [place] Repository 08/11/2018/09/01/20 [id number] Ambulatory [place] [facility] [place] Repository 07/29/2018/09/01/20 [id number] Ambulatory [place] [facility] [place] Repository 07/29/2018/08/25/20 [id number] Ambulatory [place] [facility] [place] Repository 07/29/2018/07/30/20 [id number] Ambulatory [place] [facility] [place] Repository 07/17/2018/07/17/20 [id number] Ambulatory [place] [facility] [place] Repository 07/17/2018/09/16/20 [id number] Ambulatory [place] [facility] [place] Repository 07/01/2018/07/02/20 [id number] Ambulatory [place] [facility] [place] Repository 06/22/2018/06/23/20 [id number] Ambulatory [place] [facility] [place] Repository 06/16/2018/06/17/20 [id number] Ambulatory [place] [facility] [place] Repository 05/13/2018/05/14/20 [id number] Ambulatory [place] [facility] [place] Repository 05/13/2018/05/18/20 [id number] Ambulatory [place] [facility] [place] Repository 04/27/2018/04/27/20 [id number] Ambulatory [place] [facility] [place] Repository 04/15/2018/04/17/20 [id number] Ambulatory [address] Repository 04/11/2018/04/11/20 [id number] Emergency [place]ast[facility] [address] [place] [address] ing:ED Repository 04/02/2018 [id number] Ambulatory [facility] Repository 04/02/2018/04/07/20 [id number] Ambulatory [address] Repository 03/20/2018/03/25/20 [id number] Ambulatory [address] Repository 03/19/2018/03/25/20 [id number] Ambulatory [address] Repository 11/05/2017/11/11/19 [id number] Ambulatory [address] Repository PAYERS PAYERS ENCOUNTER GUARANTOR PAYER SUBSCRIBER SOURCE 10/01/2018 JONATHAN L Primary JONATHAN L Chastity [id number] Insurance:GENARO [place]: [id number] Number: Repository [id number]: 330 [id number] [phone] () Date:7161-03-30CC [address] [place] [address] 23079HX: 10/01/2018 Secondary NOT GIVENUNK [place] Insurance:SELF PAY [facility] Number: Effective Repository Date:2018-10-01 09/29/2018 Jonathan [place] Primary Jonathan L Chastity [id number] Insurance:GENARO HuangB: [id number] Number: Repository [id number]: 330 [id number] [phone] () Date:[id number] [address] [place] [address] 52638LI: 09/29/2018 Secondary NOT GIVENUNK [place] Insurance:SELF PAY [facility] Number: Effective Repository Date:2018-06-23 09/24/2018 JONATHAN L Primary JONATHAN L Chastity [id number] [facility] HU[facility]GB: [facility] [id number] Medical Center Number: Repository [id number]: 330 [id number] [phone] (HP) Date:8856-02-65HA [address] [address]YL: 09/24/2018 Secondary NOT GIVENUNK [place] Insurance:SELF PAY [facility] Number: Effective Repository Date:2018-09-24 04/11/2018 Jonathan Glasgow Primary Jonathan [id number] Insurance:GENARO HuangB: [facility] [id number]ANPolicy [place]: Repository [id number]: [id number] [phone] Date:8385-22-13LY [address] (HP) 620[facility] CENTERJUANISFLORESITA MENDOZA [address]EE: 04/11/2018 Secondary NOT GIVENUNK [place] Insurance:SELF PAY [facility] Number: Effective Repository Date:2018-04-11"
== END 2018-09-27 15:25 | disposition home or self-care (01) | DRG 540 ==
LOC: WPOUT 09:11 → WP 09:14
PROVIDERS: Obstetrics & Gynecology; Admitting Provider Obstetrics & Gynecology; Referring Provider Obstetrics & Gynecology; Visit Provider Obstetrics & Gynecology
PROC: (CPT 59514; principal; 2018-09-24 12:10)
DX: O14.94 Unspecified pre-eclampsia, complicating childbirth (principal); Z30.2 Encounter for sterilization; O90.81 Anemia of the puerperium; D62 Acute posthemorrhagic anemia; O34.219 Maternal care for unspecified type scar from previous cesarean delivery; O99.52 Diseases of the respiratory system complicating childbirth; J00 Acute nasopharyngitis [common cold]; O99.334 Smoking (tobacco) complicating childbirth; O99.344 Other mental disorders complicating childbirth; F32.9 Major depressive disorder, single episode, unspecified; Z79.899 Other long term (current) drug therapy; Z3A.38 38 weeks gestation of pregnancy; Z37.0 Single live birth
CPT/HCPCS: 59025; 59050; 82565; 82570; 84156; 84450; 84460; 84550; 85025; 85027; 85610; 85730; 86850; 86900; 86920; 88302; 99218; J7030; J7120; P9016; A4216; G0378; J2405

== ENCOUNTER 2018-10-01 13:50 | Outpatient (CLI) | payer MEDICAID, SELFPAY ==
[2018-09-24 08:11] VITALS: BMI 25.7
[2018-10-01] VITALS (13 sets, daily range): BP systolic 127–159; BP diastolic 76–108; PULSE 72–121; RESP 16–18; TEMP 35.9–36.2; O2SAT 76–100; BMI 25.4
[2018-10-01 14:37] LABS: Hematocrit 29.5 % (37-47); Hemoglobin 9.3 g/dl (12.0-15.0); Mean Corp Hgb Conc 31.5 g/gl (32-36); Mean Corpuscular Hgb 27.1 pg (27.0-32.0); Mean Platelet Vol. 8.8 fl (6.2-12.0); Platelet Count 463 K/mm3 (150-450); RBC Distribution Width CV 14.8 % (11.6-14.6); RBC Distribution Width SD 44.9 fl (35.1-43.9); Red Blood Count 3.43 M/mm3 (4.2-5.4); White Blood Count 10.8 K/mm3 (4.4-11.0)
--- NOTE | 2018-10-01 14:38 | NURSING ---
dr lopez into see pt
--- NOTE | 2018-10-01 14:39 | NURSING ---
reflexes +3 knee; +2 bicep; no pedal edema; no clonus; no epigastric pain; no vision changes; headache 2/10 when resting back and 7/10 when up moving around; lungs clear; heart regular; f/f 3 below lochia small; incision approximated well no s/s of infection- no redness or edema; pt denies N/V
[2018-10-01 14:41] LABS: Scan Indicated on CBC? Y/N NO
--- NOTE | 2018-10-01 14:43 | HP.PCM_ITS ---
- Problem List (1) Pre-eclampsia, Status: Acute History Date of Admission: 09/24/18 Final KVNG Source: US <20 weeks History of this : This is a 28 year-old who is 1 week from a [facility] with BPS at 38 weeks. She had pre-eclampsia diagnosed in the . She states she has had a DARNELL since the delivery that has been persistent. Unresolved with Percocet. DARNELL currently 5/10. No vision changes, RUQ pain, epigastric pain, nausea, vomiting. She otherwise feels well. She has been taking Labetalol 100mg BID that she was started on in the . She reports a hx of pre-e with her first . She denies hx of cHTN. Medical History: Medical History (Last Updated 09/24/18 @ 10:00 by Padmini Lynch MD) Depression F32.9 Preeclampsia O14.90 Surgical History: Surgical History (Last Updated 09/24/18 @ 10:00 by Padmini Lynhc MD) Previous section Z98.891 Allergies No Known Allergies Allergy (Verified 09/22/18 10:56) Home Medications: Home Medications Sertraline HCl [Zoloft] 50 mg PO DAILY 03/21/17 Pnv No.95/Ferrous Fum/Folic AC [ Formula Tablet] 1 each PO DAILY 04/11/18 Labetalol [Trandate (Beta Hui)] 100 mg PO BID 30 Days #60 tablet 09/27/18 Oxycodone HCl/Acetaminophen [Percocet 5/325] 1 - 2 tab PO Q4H PRN PRN 7 Days #20 tab 09/27/18 Senna/Docusate Sodium [Senokot-S] 1 - 2 tablet PO DAILY PRN tablet 09/27/18 Smoking Status: Current every day smoker History Past Pregnancies: Past Pregnancies Delivery Date Name GA/Weeks Outcome Route Weight Infant Gender Labor Length Anesthesia Delivery Location Provider FOB Review of Systems Eyes: Denies: Blurred vision HEENT: Reports: Head Aches. Denies: Visual Changes Cardiovascular: Denies: Chest Pain Respiratory: Denies: Shortness of Breath Gastrointestinal: Denies: Abdominal Pain, Nausea, Vomiting Neurological: Denies: Seizures Physical Exam General: No apparent distress HEENT: Atraumatic Lungs: - - No increased resp effort Abdomen: Soft, Non Tender, Non-Distended Extremities:: No edema Neurological: Deep Tendon Reflexes 2+/4 and Symmetrical, Neuro grossly intact. Negative for: Clonus Assessment/Plan All Active Problems (Last Updated 09/24/18 @ 10:00 by Padmini Lynch MD) Pre-eclampsia, (Acute) Delivery by section of full-term infant (Acute) This is a 28 year-old, who is 1 week from a [facility] with BPS. - BP's severe on admission, now 150's/100. Will increase Labetalol to 200mg BID - With elevated BP's and persistent DARNELL since delivery, in the setting of known pre-eclampsia, will admit for pre-eclampsia - To start Mag 4g bolus followed by 2g/hr - Strict intake and output - Pre-e labs on admission - Ok for regular diet while on mag gtt - Will reassess tomorrow for likely discharge. Discussed after discharge will need to f/u for BP check
[2018-10-01 14:57] LABS: AST(SGOT) 15 U/L (15-37); Alanine Aminotransfer ALT/SGPT 29 U/L (13-56); Creatinine, Serum 0.74 mg/dL (0.55-1.02); EST Glomerular Filtration Rate 99 mL/min (>60); Est Glom Filt Rate - Afr Amer 119 mL/min (>60); Estimated Creatinine Clearance 80.57 ml/min; Uric Acid 5.8 mg/dL (2.6-6.0)
[2018-10-01 15:27] LABS: Protein, Urine (Random) 23.5 mg/dL (<11.9); Protein:Creat Ratio 582 mg/g CRE (0-200)
[2018-10-01] MEDS: Lactated Ringers 1,000 ML 15 ML IV (15:33)
[2018-10-01] MEDS: Magnesium Sulfate 20 GM/500 ML BAG IV (15:51)
--- NOTE | 2018-10-01 16:45 | NURSING ---
1640-Dr Mondragon notified by phone of results of urine protein creatinine ratio. This RN requesting order for cool mist for pt's c/o nasal stuffiness, order obtained.
[2018-10-01] MEDS: Acetaminophen/Butalbital/Caffe 1 Tablet PO (18:19)
[2018-10-01] MEDS: Labetalol 200 MG Tablet PO (21:34)
--- NOTE | 2018-10-01 22:40 | NURSING ---
Pt resting in bed, holding baby. Pt notes DARNELL 02/03 and states, It is actually much better. Pt denies needs. BPsarah RN informed of this sales recruiter and vitals as well as pt's DARNELL and comment regarding DARNELL.
[2018-10-02] VITALS (16 sets, daily range): BP systolic 110–148; BP diastolic 73–101; PULSE 75–95; RESP 16–18; TEMP 35.6–36.4; O2SAT 96–99
[2018-10-02] MEDS: Magnesium Sulfate 20 GM/500 ML BAG IV ×2 (01:44→12:45)
[2018-10-02] MEDS: Acetaminophen 325 MG Tablet 650 MG PO (04:52)
--- NOTE | 2018-10-02 07:40 | NURSING ---
spoke with Dr Mondragon and reviewed BPs. MD states will increase Labetolol and discussed headache and possible anethesia evaluation.
[2018-10-02] MEDS: Labetalol 200 MG Tablet PO ×3 (07:56→22:01)
--- NOTE | 2018-10-02 08:01 | PCM.PN.OB ---
Patient Problems: Active and Suspected Problems (Last Updated 09/24/18 @ 10:00 by Padmini Lynch MD) Pre-eclampsia, (Acute) Subjective: Patient is feeling well this morning. Headache is still persistent she rates it a 6 out of 10. She does have a history of chronic migraines, but still feels she is not sure if this headache is similar to migraine. Denies vision changes, right upper quadrant pain, epigastric pain, nausea, vomiting. Tolerating regular diet. Denies lightheadedness, chest pain, shortness of breath, leg pain. - Physical Exam General: Alert, - - Comfortable, NAD HEENT: Atraumatic Lungs: - - No increased resp effort Abdomen: Soft, Non Tender, Non-Distended, - - Incision c/d/i Extremities: No edema, No Calf Tenderness Skin: No rashes Neurological: Neuro grossly intact, - - DTR 1+/4 and symmetrical Psych/Mental Status: Normal Affect, Appropriate Vital Signs Temp Pulse Resp BP Pulse Ox 96.9 F L 85 18 138/101 H 97 10/02/18 06:51 10/02/18 06:51 10/02/18 06:51 10/02/18 06:51 10/02/18 06:51 Oxygen Delivery Method Room Air Weight: 130 lb Body Mass Index (BMI) 25.4 Intake and Output for Last 24 Hours 09/30/18 10/01/18 10/02/18 23:59 23:59 23:59 Intake Total 1018.2 / 1018.2 875 / 875 Output Total 1400 / 1400 1350 / 1350 Balance -381.8 / -381.8 -475 / -475 Laboratory Tests Past 24 Hrs 10/01/18 10/01/18 10/01/18 14:20 14:20 14:20 WBC 10.8 RBC 3.43 L Hgb 9.3 L Hct 29.5 L MCV 86.0 MCH 27.1 MCHC 31.5 L RDW 14.8 H RDW Differential 44.9 H Plt Count 463 H MPV 8.8 PT 13.0 INR 1.0 APTT 29.0 Creatinine 0.74 Estim Creat Clear Calc 80.57 Est GFR (MDRD) Af Amer 119 Est GFR (MDRD) Non-Af 99 Uric Acid 5.8 AST 15 ALT 29 U Random Total Protein Urine Creatinine Protein/Creatinin Ratio 10/01/18 15:10 WBC RBC Hgb Hct MCV MCH MCHC RDW RDW Differential Plt Count MPV PT INR APTT Creatinine Estim Creat Clear Calc Est GFR (MDRD) Af Amer Est GFR (MDRD) Non-Af Uric Acid AST ALT U Random Total Protein 23.5 H Urine Creatinine 40.40 Protein/Creatinin Ratio 582 H Medical Necessity - Tobacco Use Smoking Status: Current every day smoker Assessment/Plan All Active Problems (Last Updated 09/24/18 @ 10:00 by Padmini Lynch MD) Pre-eclampsia, (Acute) Delivery by section of full-term infant (Acute) Patient admitted for pre-eclampsia. - Continue mag gtt for 24 hrs, then d/c - BP's improved but still elevated. Will increase Labetalol to 200mg TID - DARNELL persistent and positional. Will give 1 dose of Motrin 800 mg. If unresolved, can have anesthesia evaluate - UOP adequate - Dispo: Possible d/c home later this afternoon if feeling well off mag gtt. Sent rx for Labetalol 200 mg TID. Discussed BP check next week - Discussed pt with Dr. Amador who is money position officer provider for today
[2018-10-02] MEDS: Sertraline 50 MG Tablet PO (08:19)
[2018-10-02] MEDS: Ibuprofen 400 MG Tablet 800 MG PO (08:19)
--- NOTE | 2018-10-02 08:20 | NURSING ---
mom pumping at this time, instructions given on breast pump use and cleaning
--- NOTE | 2018-10-02 11:26 | DCINST_ITS ---
- Discharge Diagnoses Current Active Problems: Current Active and Chronic Problems (Last Updated 09/24/18 @ 10:00 by Padmini Lynch MD) Pre-eclampsia, (Acute) You will use the following diet at home:: No restrictions, Regular Discharge Activity: May not drive while taking narcotic pain medications., May Shower May resume sexual activity in: 4-6 weeks Weight Bearing Status: Weight bearing as tolerated Call your doctor if your incision/area has: Sudden Increased Bleeding, Increased Pain/ Swelling, Increased Redness, Foul Smelling Discharge, Swelling at the incision site Call your doctor if you observe: Fever of 101 or Higher, Inability to urinate, Inability to have a bowel movement, Using more than one pad per hour, Shortness of breath, Dizziness, Chest pain, Calf discomfort, Uncontrolled pain, - - Call with persistent headache, vision changes, upper abdominal pain, nausea, vomiting Cleanse incision/area with: Soap & Water Instructions: Understanding Preeclampsia Allergies/Adverse Reactions: Allergies No Known Allergies Allergy (Verified 09/22/18 10:56) Medications to take at Discharge Sertraline HCl [Zoloft] 50 mg PO DAILY 03/21/17 Pnv No.95/Ferrous Fum/Folic AC [ Formula Tablet] 1 each PO DAILY 04/11/18 Oxycodone HCl/Acetaminophen [Percocet 5/325] 1 - 2 tab PO Q4H PRN PRN 7 Days #20 tab 09/27/18 Senna/Docusate Sodium [Senokot-S] 1 - 2 tablet PO DAILY PRN tablet 09/27/18 Ferrous Sulfate 325 mg PO DAILY@0800 #60 tablet 10/02/18 Labetalol [Trandate (Beta Hui)] 200 mg PO TID #120 tablet 10/02/18 The following prescriptions were given: Ferrous Sulfate 325 mg PO DAILY@0800 #60 tablet Labetalol [Trandate (Beta Hui)] 200 mg PO TID #120 tablet Primary Care Physician: Care Physician,No Primary [Primary Care Provider] - Test Results: Test results from this visit will be discussed in further detail at your follow- up appointment, if applicable. When: In 1 week for blood pressure check in the office
[2018-10-02] MEDS: 0.9% Saline Lock 10 ML Syringe IV (15:06)
--- NOTE | 2018-10-03 00:45 | NURSING ---
Taking over pt care at this time.
[2018-10-03 01:10] VITALS: BP 130/79; PULSE 81; RESP 16; TEMP 36.4; O2SAT 96
[2018-10-03 05:05] VITALS: BP 122/75; PULSE 90; RESP 16; TEMP 36.6; O2SAT 98
[2018-10-03] MEDS: Labetalol 200 MG Tablet PO (05:08)
[2018-10-03 08:45] VITALS: BP 128/87; PULSE 80; RESP 16; TEMP 36.9
--- NOTE | 2018-10-03 09:37 | PCM.PN.OB ---
Patient Problems: Active and Suspected Problems (Last Updated 09/24/18 @ 10:00 by Padmini Lynch MD) Pre-eclampsia, (Acute) Subjective: Denies complaints. Headache resolved. - Physical Exam General: Alert, Oriented x3 Abdomen: Soft, Non Tender, Non-Distended - ff mid & below umb Extremities: No Calf Tenderness Vital Signs Temp Pulse Resp BP Pulse Ox 97.9 F 90 16 122/75 H 98 10/03/18 05:05 10/03/18 05:05 10/03/18 05:05 10/03/18 05:05 10/03/18 05:05 Oxygen Delivery Method Room Air Weight: 130 lb Body Mass Index (BMI) 25.4 Intake and Output for Last 24 Hours 10/01/18 10/02/18 10/03/18 23:59 23:59 23:59 Intake Total 1018.2 / 1018.2 1437 / 1437 Output Total 1400 / 1400 1950 / 1950 Balance -381.8 / -381.8 -513 / -513 Medical Necessity - Tobacco Use Smoking Status: Current every day smoker Assessment/Plan All Active Problems (Last Updated 09/24/18 @ 10:00 by Padmini Lynch MD) Pre-eclampsia, (Acute) Delivery by section of full-term infant (Acute) HD#3 admitted with preeclampsia S/p 24 hours Mg. BP's normal off Mg. D/c home ob labetalol. F/u Friday for BP check or PRN. Reviewed preE symptoms.
== END 2018-10-03 10:20 | disposition home or self-care (01) ==
LOC: WPOUT 13:57 → WP 13:57
PROVIDERS: Obstetrics & Gynecology; Referring Provider Obstetrics & Gynecology; Visit Provider Obstetrics & Gynecology
DX: O14.95 Unspecified pre-eclampsia, complicating the puerperium (principal); O99.335 Smoking (tobacco) complicating the puerperium; O99.345 Other mental disorders complicating the puerperium; F32.9 Major depressive disorder, single episode, unspecified; Z79.899 Other long term (current) drug therapy
CPT/HCPCS: 96365; 96366 ×2; 36415; 82565; 82570; 84156; 84450; 84460; 84550; 85027; 85610; 85730; 99218; J7120; A4216; G0378

== ENCOUNTER 2023-05-16 07:33 | Emergency (ER) | payer MEDICAID, SELFPAY ==
[2023-05-16 07:34] VITALS: BP 163/116; PULSE 92; RESP 20; TEMP 37.2; O2SAT 100; BMI 27.7
[2023-05-16 08:07] LABS: Absolute Lymphocyte Count 1.68 X10^3/uL (0.83-4.51); Absolute Neutrophil Count 17.4 X10^3/uL (2.0-7.7); Basophil# 0.11 X10^3/uL; Basophil% 0.5 % (0-1); Eosinophil# 0.34 X10^3/uL; Eosinophils% 1.6 % (0-5); Hematocrit 50.2 % (37-47); Hemoglobin 17.7 g/dL (12.0-15.0); Lymphocyte # 1.68 X10^3/ul (0.83-4.51); Lymphocyte % 8.1 % (19-41); Mean Corp Hgb Conc 35.3 g/dL (32-36); Mean Corpuscular Hgb 33.3 pg (27.0-32.0); Mean Corpuscular Volume 94.5 fL (81-99); Mean Platelet Vol. 9.1 fl (6.2-12.0); Monocyte# 1.07 X10^3/uL; Monocyte% 5.2 % (0-10); NRBC Flagged by Analyzer 0 % (0-5); Neutrophil # 17.42 X10^3/uL (2.7-7.7); Neutrophil % 84.2 % (47-70); Platelet Count 282 K/mm3 (150-450); RBC Distribution Width CV 13.5 % (11.6-14.6); RBC Distribution Width SD 46.6 fl (35.1-43.9); Red Blood Count 5.31 M/mm3 (4.2-5.4); White Blood Count 20.7 K/mm3 (4.4-11.0)
--- NOTE | 2023-05-16 08:09 | ED.VIS.GI ---
HPI HPI - GI History of Present Illness Chief Complaint: Nausea/Vomiting Narrative Narrative: 33-year-old female presenting with abdominal pain, nausea, vomiting. She states that started about 430 this morning. Her last meal last evening was a roast which other members of her family had and nobody else sick. She had a couple episodes of diarrhea. She denies any dysuria hematuria. She does state that the pain is severe and is mostly in the lower abdomen on the left. Patient denies fever or chills. PFSH PFSH Medical History Depression Preeclampsia Home Medications sertraline 50 mg tablet 50 mg PO DAILY anxiety 03/21/17 [History Last Taken 10/01/18 11:00] vit no.95-ferrous fumarate 28 mg-folic acid 800 mcg tablet ( Multivitamins) 1 ea PO DAILY 04/11/18 [History Last Taken 10/01/18 11:00] sennosides 8.6 mg-docusate sodium 50 mg tablet (Stool Softener-Stimulant Laxative) 1 - 2 tab PO DAILY PRN Constipation 09/27/18 [Rx Last Taken 10/01/18 11:00] ferrous sulfate 325 mg (65 mg iron) tablet 325 mg PO DAILY@0800 ##60 10/02/18 [Rx Last Taken Unknown] labetalol 200 mg tablet 200 mg PO TID ##120 10/02/18 [Rx Last Taken Unknown] hydrocodone-acetaminophen 5-325mg 5mg-325mg 1 tab PO Q6H PRN pain 3 days #12 TABLETS 05/16/23 [Rx Last Taken Unknown] ondansetron 4 mg disintegrating tablet 4 mg PO Q8H PRN PRN Nausea #20 tabs 05/16/23 [Rx Last Taken Unknown] sulfamethoxazole 800 mg-trimethoprim 160 mg tablet (Bactrim DS) 1 tab PO DAILY 14 days #14 tabs 05/16/23 [Rx Last Taken Unknown] Allergy/AdvReac Type Severity Reaction Status Date / Time No Known Allergies Allergy Verified 05/16/23 07:33 Surgical History Previous section Social History Smoking Status: Current every day smoker tobacco type: cigarettes ROS ROS ED Review of Systems ROS Unobtainable: Denies due to encephalopathy Constitutional Constitutional ED: Denies chills or fever(s) ENT ENT ED: Denies rhinorrhea or sore throat Cardiovascular Cardiovascular: Denies chest pain or palpitations Respiratory/Chest Respiratory/Chest: Denies cough or dyspnea Gastrointestinal Gastrointestinal: Reports diarrhea, nausea and vomiting; Denies abdominal pain Genitourinary Genitourinary ED: Denies dysuria or hematuria Musculoskeletal Musculoskeletal: Denies arthralgias or back pain Integumentary Denies abscess Neurologic Neurologic: Denies headache(s) Psychiatric Psychiatric: Denies anxiety or depression EXAM Physical Exam Const Vital Signs: 05/16/23 07:34 Temperature 99 F Temperature Source Temporal Pulse Rate 92 Respiratory Rate 20 H Blood Pressure 163/116 H Blood Pressure Mean 131 Pulse Ox 100 Oxygen Delivery Method Room Air Positive well nourished General Appearance ED: NAD HEENT Reports moist mucous membranes Resp normal respiratory effort GI Palpation: tender epigastric and LLQ Back/Spine General Back: CVA tenderness left Neuro CN's II-XII intact bilaterally, moves all extremities and no sensory deficits noted Sensorium / Orientation: alert Motor Exam: strength 5/5 throughout Psych mental status grossly normal Skin no wounds MDM MDM MDM Narrative Medical decision making narrative: 33-year-old female presenting with nausea, vomiting, diarrhea, abdominal pain. Differential includes gastritis, pancreatitis, diverticulitis, UTI, pyelonephritis, ovarian cyst, ovarian torsion, kidney stone, dehydration, anemia, electrolyte abnormalities. CBC to assess white blood cell count, hemoglobin, platelets. CMP to assess liver function, renal function, electrolytes. Lipase to assess for pancreatitis. Urinalysis to assess for UTI. hCG for to assess for . Patient medicated with morphine, Zofran, 1 L of normal saline. Patient has a leukocytosis of 20.7. Hemoglobin hemoconcentrated at 17.7. Renal function electrolytes within normal limits. Alkaline phosphatase slightly elevated 122 over rest of her LFTs are normal. Lipase is normal. Serum test negative. Urinalysis consistent with UTI. Given her flank pain I suspect this could be pyelonephritis although she is having diarrhea. Repeat a CT of the abdomen pelvis with IV contrast which shows concern for a leaking renal cyst on the left and some colitis which is mild. I discussed the case with Dr. Delgadillo who stated that she never heard of a leaking renal cyst and it likely was not that. She recommended treating her with antibiotics and having her follow-up with her in the office in a week or 2. On reevaluation the patient is feeling better. I offered her admission given her white count and her pain and nausea. She declines. She will be placed on Bactrim, [place], Zofran for home. I did give her strict return precautions. Impression: 1. Pyelonephritis 2. Nausea/vomiting 3. Colitis Lab Data Attestation: I reviewed the patient's lab results. Labs: Laboratory Results - last 24 hr 05/16/23 05/16/23 07:59 08:47 WBC 20.7 H RBC 5.31 Hgb 17.7 H Hct 50.2 H MCV 94.5 MCH 33.3 H MCHC 35.3 RDW Std Deviation 46.6 H RDW Coeff of Lesli 13.5 Plt Count 282 MPV 9.1 Immature Gran % (Auto) 0.400 Neut % (Auto) 84.2 H Lymph % (Auto) 8.1 L Boyle % (Auto) 5.2 Eos % (Auto) 1.6 Baso % (Auto) 0.5 Absolute Neuts (auto) 17.4 H Absolute Lymphs (auto) 1.68 Nucleated RBC % 0 Sodium 139 Potassium 3.8 Chloride 105 Carbon Dioxide 26.0 Anion Gap 8 BUN 8 Creatinine 0.74 Estim Creat Clear Calc 76.94 Est GFR (MDRD) Af Amer 115 Est GFR (MDRD) Non-Af 95 BUN/Creatinine Ratio 10.8 Glucose 113 H Calcium 9.1 Total Bilirubin 0.70 AST 24 ALT 42 Alkaline Phosphatase 122 H Total Protein 7.7 Albumin 3.8 Globulin 3.9 Albumin/Globulin Ratio 1.0 Lipase 33 Serum , Qual NEGATIVE Urine Color Yellow Urine Clarity Sl. Cloudy Urine pH 8.0 Ur Specific [place] 1.010 Urine Protein 30 H Urine Glucose (UA) Normal Urine Ketones 5 H Urine Occult Blood 150 H Urine Nitrite Positive H Urine Bilirubin Negative Urine Urobilinogen Normal Ur Leukocyte Esterase 100 H Urine RBC 5-10 SEEN Urine WBC 25-50 SEEN Ur Squamous Epith Cells 0 SEEN Urine Bacteria 2+ Urine Mucus 0 SEEN Radiography Diagnostic Testing: Clinical Impression(s) from Imaging Studies Abdomen/Pelvis CT 05/16/23 09:04 IMPRESSION: Subtle submucosal thickening in the distal descending and sigmoid colon with a minimal amount of pericolonic inflammatory stranding suggesting colitis. No perforation or abscess noted There is inflammatory stranding around the lower pole left kidney which appears to be due to possible leaking lower pole cyst. There is no obstructive uropathy or suspicious solid renal lesion. No free air or suspicious adenopathy, normal appendix visualized Electronically Signed: Rashad Drew MD at 9:42 EDT , Discharge Plan Triage Chief Complaint: Nausea/Vomiting ED Provider: Lan Patel Dx/Rx/DC Orders Instructions: ED Pyelonephritis, Female (Adult) Prescriptions: New sulfamethoxazole-trimethoprim [Bactrim DS] 800-160 mg tablet 1 tab PO DAILY 14 Days Qty: 14 0RF ondansetron 4 mg tablet,disintegrating 4 mg PO Q8H PRN PRN (Reason: Nausea) Qty: 20 0RF hydrocodone-acetaminophen 5-325 mg tablet 1 tab PO Q6H PRN (Reason: pain) 3 Days Qty: 12 0RF No Action sertraline 50 MG tablet 50 mg PO DAILY PNV cmb#95-ferrous fumarate-FA [ Multivitamins] 1 EACH tablet 1 ea PO DAILY sennosides-docusate sodium [Stool Softener-Stimulant Laxat] 1 TABLET tablet 1 - 2 tab PO DAILY PRN (Reason: Constipation) 0RF labetalol 200 MG tablet 200 mg PO TID Qty: 120 1RF ferrous sulfate 325 MG tablet 325 mg PO DAILY@0800 Qty: 60 1RF Primary Care Provider: Sherry Catherine Referrals: Rosa Delgadillo MD [Med Staff - Active Staff] - As Needed Sherry Catherine MD [Primary Care Provider] - Disposition Disposition: Home, Self Care
[2023-05-16] MEDS: Morphine 4 MG/ML Syringe IV (08:10)
[2023-05-16] MEDS: Ondansetron 4 MG/2 ML Vial IV (08:10)
[2023-05-16] MEDS: 0.9% Normal Saline 1,000 ML 1000 ML IV (08:10)
[2023-05-16 08:21] LABS: AST(SGOT) 24 U/L (15-37); Alanine Aminotransfer ALT/SGPT 42 U/L (13-56); Albumin, Serum 3.8 g/dL (3.2-5.0); Alkaline Phosphatase 122 U/L (45-117); Anion Gap 8 (5-15); BUN 8 mg/dL (7-18); BUN/Creat Ratio 10.8 RATIO (10-20); Calcium,Total 9.1 mg/dL (8.5-10.1); Chloride 105 mmol/L (98-107); Creatinine, Serum 0.74 mg/dL (0.55-1.02); EST Glomerular Filtration Rate 95 mL/min (>60); Est Glom Filt Rate - Afr Amer 115 mL/min (>60); Estimated Creatinine Clearance 76.94 ml/min; Globulin 3.9 g/dL (2.2-4.2); Glucose 113 mg/dL (74-106); Lipase 33 U/L (13-75); Potassium 3.8 mmol/L (3.5-5.1); Protein, Total 7.7 g/dL (6.4-8.2); Sodium Level 139 mmol/L (136-145)
[2023-05-16 08:22] LABS: Internal QC Validated? YES +Cl - CLEAR BKGD; Pregnancy, Serum, hCG Quali. NEGATIVE Negative
[2023-05-16 08:52] LABS: Mucous, Urine 0 SEEN /hpf (<or=2+); Squamous Epithelial Cells - UA 0 SEEN /hpf (5-10)
[2023-05-16 08:56] LABS: Color, Urine Yellow (Yellow); Glucose, Dipstick Normal (Normal); Ketone-Dipstick 5 mg/dl (Negative); Leukocyte Esterase-Dipstick 100 /ul (Negative); Nitrite-Dipstick Positive (Negative); Occult Blood-Urine 150 /ul (Negative); Protein-Dipstick 30 mg/dl (Negative); Urine Bilirubin Dipstick Negative (Negative); Urine Clarity Sl. Cloudy (Clear); Urine Urobilinogen Normal (Normal)
[2023-05-16 09:04] LABS: Bacteria 2+ /hpf (None Seen); Red Blood Cells-Urine 5-10 SEEN /hpf (0-5); White Blood Cells 25-50 SEEN /hpf (0-5)
--- NOTE | 2023-05-16 09:04 | CT_ITS ---
STUDY: CT ABDOMEN AND PELVIS WITH CONTRAST REASON FOR EXAM: Female, 33 years old. Left lower quadrant abdominal pain RADIATION DOSAGE (If Supplied By Facility): CTDIvol = ( 10.04 ) mGy, DLP = ( 500.25 ) mGycm TECHNIQUE: Transaxial images were obtained from the dome of the diaphragm to the symphysis pubis without oral contrast. IV 100mL Isovue-300 was administered. Sagittal and coronal images were reconstructed. Individualized dose optimization techniques were used for this CT. COMPARISON: None. FINDINGS: The visualized lung bases are unremarkable. The visualized portions of the heart are within normal limits. Normal liver. Normal gallbladder and extrahepatic biliary system. Normal spleen. Normal pancreas. Normal bilateral adrenal glands. Right kidney is free of obstructive uropathy or suspicious solid renal lesion. Left kidney does not show obstructive uropathy or suspicious solid renal lesion, there is a simple 3 cm cyst but there is also perinephric inflammatory stranding. On coronal reconstructed image 55 there is a suggestion that there may be leakage from the lower pole cyst. Normal visualized stomach. Normal small intestine. Majority of the colon is unremarkable but there is subtle submucosal thickening in the distal descending and sigmoid colon suggesting a colitis. There is a minimal amount of pericolonic inflammatory stranding. No perforation or abscess. The appendix is visualized and appears normal. Appendix seen on coronal recon images 55-58. Normal abdominal aorta. Normal inferior vena cava. Normal retroperitoneum. Normal urinary bladder. Normal-appearing uterus with physiologic ovarian cysts. Normal abdominal wall. Normal osseous structures. CT/Abdomen/Pelvis W IV Cont ONLY IMPRESSION: Subtle submucosal thickening in the distal descending and sigmoid colon with a minimal amount of pericolonic inflammatory stranding suggesting colitis. No perforation or abscess noted There is inflammatory stranding around the lower pole left kidney which appears to be due to possible leaking lower pole cyst. There is no obstructive uropathy or suspicious solid renal lesion. No free air or suspicious adenopathy, normal appendix visualized Electronically Signed: Rashad Drew MD at 9:42 EDT ,
[2023-05-16 09:33] VITALS: RESP 14
[2023-05-16] MEDS: Ceftriaxone 1 GM/50 ML BAG IV (09:41)
== END 2023-05-16 11:02 | disposition home or self-care (01) ==
PROVIDERS: Emergency Provider Student in an Organized Health Care Education/Training Program; PCP Internal Medicine; Visit Provider Student in an Organized Health Care Education/Training Program
DX: N12 Tubulo-interstitial nephritis, not specified as acute or chronic (principal); K52.9 Noninfective gastroenteritis and colitis, unspecified; R10.32 Left lower quadrant pain; F17.210 Nicotine dependence, cigarettes, uncomplicated; Z79.899 Other long term (current) drug therapy
CPT/HCPCS: 74177; 80053; 81001; 83690; 84703; 85025; 96361; 96365; 96375; 99283; J7030; Q9967; A4216; J2405

== ENCOUNTER → 2024-05-11 | Outpatient (CLI) | payer MEDICAID, SELFPAY ==
[2024-05-13 19:07] LABS: QNTFERON TB Mitogen Value > 10.00 IU/mL (.); QNTFERON TB Nil Value 0 IU/mL (.); QNTFERON TB1+ Ag Value 0 IU/mL (.); QNTFERON TB2+ Ag Value 0.01 IU/mL (.); QNTIFERON TB Positive Criteria Negative (Negative)
== END | disposition home or self-care (01) ==
PROVIDERS: PCP Internal Medicine; Referring Provider Physician Assistant; Visit Provider Physician Assistant
DX: L73.2 Hidradenitis suppurativa (principal)
CPT/HCPCS: 36415; 86480

== ENCOUNTER → 2025-04-07 | Outpatient (CLI) | payer MEDICAID, SELFPAY ==
[2025-04-09 14:08] LABS: QNTFERON TB Mitogen Value > 10.00 IU/mL (.); QNTFERON TB Nil Value 0.03 IU/mL (.); QNTFERON TB1+ Ag Value 0.04 IU/mL (.); QNTFERON TB2+ Ag Value 0.06 IU/mL (.); QNTIFERON TB Positive Criteria Negative (Negative)
== END | disposition home or self-care (01) ==
LOC: MTLAB 13:22
PROVIDERS: PCP Internal Medicine; Referring Provider Physician Assistant; Visit Provider Physician Assistant
DX: L73.2 Hidradenitis suppurativa (principal); Z79.899 Other long term (current) drug therapy
CPT/HCPCS: 36415; 86480